=== PATIENT | male | born 1945 | race Caucasian/White ===

== ENCOUNTER 2016-07-19 06:22 | Emergency (ER) | payer BC, OTHER ==
[~2016-07-19] VITALS: Ht 170.2 cm; Wt 100.7 kg
[~2016-07-19 06:22] MED LIST: MULT-506 PO; OFLO0.3S OPR; PRED1SUS3 OPL
[2016-07-19 06:25] VITALS: TEMP 36.6; Ht 170.2 cm; Wt 100.7 kg
[2016-07-19] MEDS ORDERED: OPTIRAY 320 IV PRN (06:45)
--- NOTE | 2016-07-19 06:45 | EMERGENCY ROOM VISIT NOTE ---
History Report prepared by Yoletteibedilma: Gustavo Santamaria Under the Supervision of: Dr. Genaro Lua M.D. First contact with patient: 06:30 Chief Complaint: ABDOMINAL PAIN Stated Complaint: PAIN ON RIGHT SIDE OF ABDOMEN History of Present Illness The patient is a 70 year old male who presents to the Emergency Room with complaints of constant right-sided abdominal pain for the past two weeks. The pain is located in the rib area and radiates towards the back. The pain is described as a throbbing sensation, and is relieved for a few hours with Ibuprofen. Pain is not worsened when he takes a deep breath or with movement. Pain does not radiate to the shoulders. The patient has never had pain like this before. He has had trouble sleeping secondary to pain. He has been eating and drinking okay. Patient denies syncope, fevers, chills, nausea, vomiting, chest pain, shortness of breath, urinary symptoms, swelling of the legs, or rashes. He denies recent falls injuries or trauma. The pain does not feel like past kidney stones. He denies any history of liver or gallbladder disease. He has no sick contacts. Patient does not take any daily medications other than multivitamins. Source of History: patient Onset: two weeks ago Position: abdomen (right-sided) Quality: other (throbbing) Timing: constant Modifying Factors (Relieving): ibuprofen Associated Symptoms: No SOB, No chest pain, No chills, No fevers, No nausea , No rash, No vomiting Review of Systems See HPI for pertinent positives & negatives. A total of 10 systems reviewed and were otherwise negative. Past Medical & Surgical Medical Problems: (1) H/O renal calculi Family History No pertinent family history Social History Smoking Status: Former Smoker Marital Status: Housing Status: lives with family Current/Historical Medications No Active Prescriptions or Reported Meds Allergies Coded Allergies: No Known Allergies (Unverified , 07/19/16) Physical Exam Vital Signs Date Time Temp Pulse Resp B/P Pulse Ox O2 Delivery O2 Flow Rate FiO2 07/19/16 10:30 80 18 197/98 100 07/19/16 06:42 100 18 234/108 98 Room Air 07/19/16 06:25 36.6 101 18 234/96 97 Room Air Physical Exam GENERAL: Patient is uncomfortable appearing and in mild distress. HEENT: No acute trauma, normocephalic atraumatic, mucous membranes moist, no nasal congestion, no scleral icterus. NECK: No stridor, no adenopathy, no meningismus, trachea is midline. LUNGS: No dyspnea. Clear to auscultation and equal bilaterally. No wheeze, no rhonchi. HEART: Regular rate and rhythm. No murmurs, rubs, gallops appreciated. ABDOMEN: Soft, nontender, bowel sounds positive, no masses appreciated, no peritonitis. BACK: No midline tenderness, no CVA tenderness EXTREMITIES: Normal motion all extremities, no cyanosis, no edema. NEUROLOGIC: Alert and oriented, no acute motor or sensory deficits, no focal weakness, cranial nerves grossly intact. SKIN: No rash, no jaundice, no diaphoresis. Medical Decision & Procedures ER Provider Diagnostic Interpretation: Radiology results and stated below per my review and radiologist interpretation: CT OF THE ABDOMEN AND PELVIS WITH CONTRAST CLINICAL HISTORY: Right-sided abdominal pain. COMPARISON STUDY: None. TECHNIQUE: Following IV administration of 94 mL of Optiray-320, axial images of the abdomen and pelvis were obtained from the lung bases to the proximal femurs. Images were reviewed in the axial, sagittal, and coronal planes. IV contrast was administered without complication. CT DOSE: 1085.52 mGy.cm FINDINGS: Visualized portions of the lower chest demonstrate several tree-in-bud nodules within the right lower lobe. The liver, spleen, adrenal glands and pancreas are normal. Note is made of a 6.8 cm x 5.7 cm mass-like abnormality centered within the cortex of the midpole of the right kidney. This is centrally hypodense with an irregular enhancing wall. There is moderate adjacent infiltration. There is urothelial thickening of the right collecting system. There is trace perihepatic ascites. Note is made of a mildly enlarged lymph node adjacent to the right renal vein that measures 1.8 cm. This is centrally hypodense. There is no hydronephrosis. There is a 3.7 cm left renal cyst. There is no evidence for a bowel obstruction. There is sigmoid diverticulosis without evidence for acute diverticulitis. No suspicious osseous lesions are present. IMPRESSION: 1. 6.8 x 5.7 cm mass-like abnormality within the cortex of the midpole of the right kidney which is centrally hypodense with an irregular enhancing wall with moderate associated infiltration. Associated urothelial thickening. Mildly enlarged lymph node adjacent to the right renal vein which may be necrotic. The appearance favors an infectious process with abscess formation. Although statistically unlikely, renal tuberculosis is within the differential. A neoplastic process such as transitional cell carcinoma or atypical appearance of renal cell carcinoma could appear similar. Findings discussed with Dr. Lua at time of dictation. 2. Trace right pleural effusion and trace perihepatic ascites related to the right renal process. 3. Minimal tree-in-bud nodules within the right lower lobe. Electronically signed by: Ranjit Espinosa M.D. 07/19/2016 7:55 AM Dictated Date/Time: 07/19/2016 7:32 AM Laboratory Results 07/19/16 07:00 Red Blood Count 4.59, Mean Corpuscular Volume 81.7, Mean Corpuscular Hemoglobin 25.3, Mean Corpuscular Hemoglobin Concent 30.9, Mean Platelet Volume 9.2, Neutrophils (%) (Auto) 77.3, Lymphocytes (%) (Auto) 13.2, Monocytes (%) (Auto) 8.2, Eosinophils (%) (Auto) 1.0, Basophils (%) (Auto) 0.1, Neutrophils # (Auto) 7.23, Lymphocytes # (Auto) 1.24, Monocytes # (Auto) 0.77, Eosinophils # (Auto) 0.09, Basophils # (Auto) 0.01 07/19/16 07:00 Test 07/19/16 07:00 07/19/16 07:05 White Blood Count 9.36 K/uL (4.8-10.8) Red Blood Count 4.59 M/uL (4.7-6.1) Hemoglobin 11.6 g/dL (14.0-18.0) Hematocrit 37.5 % (42-52) Mean Corpuscular Volume 81.7 fL (80-100) Mean Corpuscular Hemoglobin 25.3 pg (25-34) Mean Corpuscular Hemoglobin Concent 30.9 g/dl (32-36) Platelet Count 380 K/uL (130-400) Mean Platelet Volume 9.2 fL (7.4-10.4) Neutrophils (%) (Auto) 77.3 % Lymphocytes (%) (Auto) 13.2 % Monocytes (%) (Auto) 8.2 % Eosinophils (%) (Auto) 1.0 % Basophils (%) (Auto) 0.1 % Neutrophils # (Auto) 7.23 K/uL (1.4-6.5) Lymphocytes # (Auto) 1.24 K/uL (1.2-3.4) Monocytes # (Auto) 0.77 K/uL (0.11-0.59) Eosinophils # (Auto) 0.09 K/uL (0-0.5) Basophils # (Auto) 0.01 K/uL (0-0.2) RDW Standard Deviation 42.4 fL (36.4-46.3) RDW Coefficient of Variation 14.1 % (11.5-14.5) Immature Granulocyte % (Auto) 0.2 % Immature Granulocyte # (Auto) 0.02 K/uL (0.00-0.02) Urine Color YELLOW Urine Appearance CLOUDY (CLEAR) Urine pH 6.0 (4.5-7.5) Urine Specific [facility] 1.020 (1.000-1.030) Urine Protein 2+ (NEG) Urine Glucose (UA) NEG (NEG) Urine Ketones NEG (NEG) Urine Occult Blood 3+ (NEG) Urine Nitrite NEG (NEG) Urine Bilirubin NEG (NEG) Urine Urobilinogen NEG (NEG) Urine Leukocyte Esterase SMALL (NEG) Urine WBC (Auto) >30 /hpf (0-5) Urine RBC (Auto) >30 /hpf (0-4) Urine Hyaline Casts (Auto) 5-10 /lpf (0-5) Urine Epithelial Cells (Auto) 10-20 /lpf (0-5) Urine Bacteria (Auto) NEG (NEG) Est Creatinine Clear Calc Drug Dose 81.6 ml/min Estimated GFR () 91.4 Estimated GFR (Non- 78.9 BUN/Creatinine Ratio 22.0 (10-20) Calcium Level 8.4 mg/dl (8.5-10.1) Total Bilirubin 0.4 mg/dl (0.2-1) Direct Bilirubin < 0.1 mg/dl (0-0.2) Aspartate Amino Transf (AST/SGOT) 12 U/L (15-37) Alanine Aminotransferase (ALT/SGPT) 25 U/L (12-78) Alkaline Phosphatase 43 U/L (45-117) Total Protein 7.4 gm/dl (6.4-8.2) Albumin 2.9 gm/dl (3.4-5.0) Lipase 69 U/L (73-393) Bedside Hemoglobin 13.3 g/dl (14.0-18.0) Bedside Hematocrit 39 % (42-52) Bedside Sodium 140 mEq/L (135-144) Bedside Potassium 3.6 mEq/L (3.3-5.0) Bedside Chloride 102 mEq/L (101-112) Bedside Total CO2 24 mEq/l (24-31) Anion Gap 19.0 mmol/L (16-25) Bedside Blood Urea Nitrogen 22 mg/dl (7-18) Bedside Creatinine 1.0 mg/dl (0.6-1.3) Bedside Glucose (other) 114 mg/dl (70-99) Bedside Ionized Calcium (Deanna) 1.05 mmol/l (1.12-1.32) Laboratory results as reviewed by me. Medications Administered Medications (Trade) Dose Ordered Sig/Cb Route Start Time Stop Time Status Last Admin Dose Admin Hydromorphone HCl 1 mg 1 mg NOW STAT IV 07/19/16 08:09 07/19/16 08:10 DC 07/19/16 08:17 1 MG Sodium Chloride (Nss 1000ml) 1,000 ml @ 999 mls/hr Q1H1M STAT IV 07/19/16 08:09 07/19/16 09:09 DC 07/19/16 08:17 999 MLS/HR Labetalol HCl (Normodyne IV) 10 mg NOW STAT IV 07/19/16 08:49 07/19/16 08:50 DC 07/19/16 09:10 10 MG Labetalol HCl (Normodyne IV) 20 mg NOW STAT IV 07/19/16 09:29 07/19/16 09:30 DC 07/19/16 09:49 20 MG Hydromorphone HCl (Dilaudid Inj) 1 mg NOW STAT IV 07/19/16 10:13 07/19/16 10:14 DC 07/19/16 10:25 1 MG ED Course 0631: The patient was evaluated in room A2. A complete history and physical exam was performed. 0700: The patient declines anything to control his blood pressure as he states this happens every time he sees a doctor. 0748: Discussed the CT findings with Dr. Espinosa from Radiology. 0751: Checked on the patient. He is feeling better. We extensively discussed TB risk factors which he declined. Dr. Nunez of Urology was paged. 0801: Discussed the case with Dr. Nunez, Urologist. He recommends transfer. 0808: The patient is having increased pain. He would like to go to [place] as he is a [employer] employee. [facility] paged. 0809: Dilaudid 1 mg IV, NSS 1000 ml @ 999 mls/hr. 0820: Discussed the case with Dr. Temple, [facility], who agrees with the plan. Also spoke with Dr. Cee, [place] [facility], who accepts the transfer. I discussed with them that the patient wishes to be transferred by private vehicle. They advised ambulance if his blood pressure remains elevated. 0840: The patient is still severely hypertensive. He agrees to IV antihypertensives and transfer to [place] via ambulance. 0849: Labetalol 10 mg IV. 0928: Patient's blood pressure was 210 systolic. He will receive another 20 of Labetalol. 0929: Labetalol 20 mg IV. 1013: Dilaudid 1 mg IV, Labetalol 20 mg IV. 1030: The patient has departed. He will be taken to [place] via ambulance. Medical Decision Differential: Renal Colic, Pyelonephritis, Hydronephrosis, Appendicitis, Diverticulitis, Retroperitoneal Bleed/Infection, Aortic Pathology, MSK, Neurologic Pathology, amongst other pathologies entertained. 70 yr old male with right flank pain radiating back for last 2 weeks gradually worsening, worse with laying on right side. Severely hypertensive on arrival though refusing meds stating this is normal and his BP always lowers after a short while. He has no symptoms of hypertensive crisis. Given symptoms felt that CT indicated. There is large right renal mass consistent with abscess vs CA vs much less likely TB. He has no TB risk factors after extensive screening questions. I do not feel he requires isolation given the much more likely other causes and his no risk factors. BP remains elevated. After significant amount of time discussing patient agreeable to treatment of BP. Several rounds of IV labetalol prior to getting BP under control and with this feel comfortable with transfer to tertiary center. Discussed with Uro and ER at [place] who have accepted for transfer. I discussed my wish for patient ot go by ambulance which he eventually agreed to. Kept comfortable with IV dilaudid. Hold ABX given unclear if this truly is infection and would like to avoid messing up any biopsies if this is infectious. Multiple re-evaluations throughout the stay discussing case with patient and family. Consults Time Called: 07 Consulting Physician: Dr. Espinosa from Radiology. Returned Call: [address] findings. Additional Consults: Time Called: 075 Consulted Physician: Discussed the case with Dr. Nunez, Urologist. Returned Call: 08 Additional Comments: He recommends transfer. Time Called: 08 Consulted Physician: [facility] U[facility]ist and Dr. Cee, [facility] Returned Call: 08 Additional Comments: I discussed with them that the patient wishes to be transferred by private vehicle. They advised ambulance if his blood pressure remains elevated. Impression Primary Impression: Right renal mass Additional Impression: Hypertensive emergency Critical Care I have personally spent greater than 40 minutes of critical care time in the direct management of this patient. This was a life/limb threatening event. This includes time spent evaluating patient, direct bedside care, chart review, placing orders, interpretation of diagnostic studies, discussion with consultants, patient, and family members, as well as other required patient management activities. This 40 minutes is in excess of all separately billable procedures. Scribe Attestation The scribe's documentation has been prepared under my direction and personally reviewed by me in its entirety. I confirm that the note above accurately reflects all work, treatment, procedures, and medical decision making performed by me. Departure Information Dispostion Transfer Acute Care Facility Prescriptions No Active Prescriptions or Reported Meds Referrals Declan Chen M.D. ([facility]) (PCP) Patient Instructions My [facility] Problem Qualifiers
[2016-07-19 07:13] LABS: BASO % 0.1 %; BASO ABS # 0.01 K/uL (0-0.2); COMPLETE YES; HEMATOCRIT 37.5 % (42-52); IG% 0.2 %; LYMPH % 13.2 %; LYMPH ABS # 1.24 K/uL (1.2-3.4); MEAN CELL VOLUME 81.7 fL (80-100); MEAN CORPUSCULAR HEMOGLOBIN 25.3 pg (25-34); MEAN CORPUSCULAR HGB CONC 30.9 g/dl (32-36); MEAN PLATELET VOLUME 9.2 fL (7.4-10.4); MONO % 8.2 %; NEUT % 77.3 %; PLATELET COUNT 380 K/uL (130-400); RED BLOOD COUNT 4.59 M/uL (4.7-6.1); WHITE BLOOD COUNT 9.36 K/uL (4.8-10.8)
[2016-07-19 07:17] LABS: URINE APPEARANCE CLOUDY (CLEAR); URINE BILIRUBIN NEG (NEG); URINE COLOR YELLOW; URINE NITRITE NEG (NEG); UROBILINOGEN NEG (NEG); ZZUR CULT IF INDIC CLEAN CATCH YES
[2016-07-19 07:19] LABS: ISTAT HEMOGLOBIN 13.3 g/dl (14.0-18.0); ISTAT IONIZED CALCIUM 1.05 mmol/l (1.12-1.32)
[2016-07-19 07:24] LABS: ALT/SGPT 25 U/L (12-78); AST/SGOT 12 U/L (15-37); BLOOD UREA NITROGEN 22 mg/dl (7-18); CALCIUM 8.4 mg/dl (8.5-10.1); CARBON DIOXIDE 27 mmol/L (21-32); CHLORIDE 106 mmol/L (98-107); CREATININE 0.98 mg/dl (0.60-1.40); GLUCOSE 113 mg/dl (70-99); POTASSIUM 3.7 mmol/L (3.5-5.1); SODIUM 141 mmol/L (136-145)
[2016-07-19 07:26] LABS: MANUAL MICROSCOPIC REQUIRED? NO; REVIEW REQ? NO
[2016-07-19 07:27] LABS: ALKALINE PHOSPHATASE 43 U/L (45-117)
--- NOTE | 2016-07-19 07:56 | DIAGNOSTIC IMAGING REPORT ---
CT OF THE ABDOMEN AND PELVIS WITH CONTRAST CLINICAL HISTORY: Right-sided abdominal pain. COMPARISON STUDY: None. TECHNIQUE: Following IV administration of 94 mL of Optiray-320, axial images of the abdomen and pelvis were obtained from the lung bases to the proximal femurs. Images were reviewed in the axial, sagittal, and coronal planes. IV contrast was administered without complication. CT DOSE: 1085.52 mGy.cm FINDINGS: Visualized portions of the lower chest demonstrate several tree-in-bud nodules within the right lower lobe. The liver, spleen, adrenal glands and pancreas are normal. Note is made of a 6.8 cm x 5.7 cm mass-like abnormality centered within the cortex of the midpole of the right kidney. This is centrally hypodense with an irregular enhancing wall. There is moderate adjacent infiltration. There is urothelial thickening of the right collecting system. There is trace perihepatic ascites. Note is made of a mildly enlarged lymph node adjacent to the right renal vein that measures 1.8 cm. This is centrally hypodense. There is no hydronephrosis. There is a 3.7 cm left renal cyst. There is no evidence for a bowel obstruction. There is sigmoid diverticulosis without evidence for acute diverticulitis. No suspicious osseous lesions are present. IMPRESSION: 1. 6.8 x 5.7 cm mass-like abnormality within the cortex of the midpole of the right kidney which is centrally hypodense with an irregular enhancing wall with moderate associated infiltration. Associated urothelial thickening. Mildly enlarged lymph node adjacent to the right renal vein which may be necrotic. The appearance favors an infectious process with abscess formation. Although statistically unlikely, renal tuberculosis is within the differential. A neoplastic process such as transitional cell carcinoma or atypical appearance of renal cell carcinoma could appear similar. Findings discussed with Dr. Lua at time of dictation. 2. Trace right pleural effusion and trace perihepatic ascites related to the right renal process. 3. Minimal tree-in-bud nodules within the right lower lobe. Electronically signed by: Ranjit Espinosa M.D. 07/19/2016 7:55 AM Dictated Date/Time: 07/19/2016 7:32 AM
[2016-07-19] MEDS ORDERED: HYDROmorphone INJ 1 MG/ML SYR IV STA ×2 (08:09→10:13)
[2016-07-19] MEDS ORDERED: SODIUM CHLORIDE 0.9% 1000ML 1,000 ML IV STA (08:09)
[2016-07-19] MEDS ORDERED: LABETALOL HCL IV 5 MG/ML 20ML IV STA ×3 (08:49→10:13)
[2016-07-19 10:30] VITALS: BP 197/98; PULSE 80; O2SAT 100
[2016-10-12] MEDS ORDERED: CLON1TAB3 PO (08:21)
[2016-10-12] MEDS ORDERED: CIPR1TAB11 PO (08:21)
[2016-10-23] MEDS ORDERED: CTP/1 PO (13:32)
[2016-10-23] MEDS ORDERED: METO50TA16 PO (13:33)
[2016-11-04] MEDS ORDERED: ESZO1TAB16 PO (14:48)
[2016-11-26] MEDS ORDERED: AMOX500C3 PO (07:34)
[2016-11-26] MEDS ORDERED: TEMA15CA4 PO (07:34)
[2016-12-21] MEDS ORDERED: FURO-85 PO (07:03)
[2016-12-21] MEDS ORDERED: MIRT15TA2 PO (07:03)
[2016-12-21] MEDS ORDERED: SENNTAB23 PO (07:03)
[2017-01-07] MEDS ORDERED: POTA10CA28 PO (07:31)
[2017-01-07] MEDS ORDERED: ZOLP5TAB PO (07:31)
[2017-01-27] MEDS ORDERED: DTR5 PO (11:24)
[2017-01-27] MEDS ORDERED: FNTTP50 TD (11:24)
[2017-01-27] MEDS ORDERED: FLM4 PO (11:24)
[2017-01-27] MEDS ORDERED: ACET-24 PO (11:24)
[2017-01-27] MEDS ORDERED: PRED10TA PO (11:24)
[2017-01-27] MEDS ORDERED: MRLP17X PO (11:24)
[2017-01-27] MEDS ORDERED: MRPL PO (11:24)
[2017-01-27] MEDS ORDERED: NYSS5 PO (11:24)
[2017-01-27] MEDS ORDERED: CLC100 PO (11:24)
[2017-01-27] MEDS ORDERED: DRGTP12 TD (11:50)
== END 2016-07-19 10:32 | disposition short-term general hospital (02) ==
LOC: C.EDB 06:23 → C.EDA 10:32
DX: N28.89 Other specified disorders of kidney and ureter (principal); I16.1 Hypertensive emergency; Z87.442 Personal history of urinary calculi; Z87.891 Personal history of nicotine dependence

== ENCOUNTER 2016-09-21 07:16 | Emergency (ER) | payer BC, OTHER ==
[~2016-09-21] VITALS: Ht 172.7 cm; Wt 97.1 kg
[2016-09-21 07:22] VITALS: TEMP 37.3; Ht 172.7 cm; Wt 97.1 kg
[2016-09-21] MEDS ORDERED: MULT-897 PO (07:43)
[2016-09-21] MEDS ORDERED: HYDR4TAB78 PO (07:43)
[2016-09-21] MEDS ORDERED: METO-217 PO (07:43)
[2016-09-21] MEDS ORDERED: ACET-1256 PO (07:43)
[2016-09-21] MEDS ORDERED: PROC5TAB PO (07:43)
[2016-09-21] MEDS ORDERED: NF656 TD (07:43)
[2016-09-21] MEDS ORDERED: DOCU-94 PO (07:43)
[2016-09-21] MEDS ORDERED: LISI-793 PO (07:43)
[2016-09-21] MEDS ORDERED: SODIUM CHLORIDE 0.9% 1000ML 1,000 ML IV STA (08:00)
[2016-09-21] MEDS ORDERED: CEFTRIAXONE SOD INJ 1 GM ADDVIAL IV STA (08:00)
[2016-09-21 08:07] LABS: MEAN CELL VOLUME 80.2 fL (80-100); MEAN CORPUSCULAR HEMOGLOBIN 25.9 pg (25-34); MEAN CORPUSCULAR HGB CONC 32.3 g/dl (32-36); MEAN PLATELET VOLUME 8.6 fL (7.4-10.4); PLATELET COUNT 495 K/uL (130-400); RED BLOOD COUNT 3.24 M/uL (4.7-6.1); WHITE BLOOD COUNT 21.98 K/uL (4.8-10.8)
[2016-09-21 08:20] LABS: INR 1.2 (0.9-1.1); PARTIAL THROMBOPLASTIN RATIO 1.1
[2016-09-21 08:24] LABS: BUN/CREATININE RATIO 26.6 (10-20); CALCIUM 8.3 mg/dl (8.5-10.1); CREATININE 2.1 mg/dl (0.60-1.40); POTASSIUM 5.2 mmol/L (3.5-5.1)
[2016-09-21 08:29] LABS: CKMB/CK RATIO 3.2 (0-3.0)
[2016-09-21 08:41] LABS: COMPLETE YES; IG% 0.4 %; LYMPH % 1.2 %; LYMPH ABS # 0.27 K/uL (1.2-3.4); MONO % 0.5 %; NEUT % 97.9 %
[2016-09-21] MEDS ORDERED: SULF800T23 PO (08:52)
--- NOTE | 2016-09-21 08:54 | DIAGNOSTIC IMAGING REPORT ---
CHEST ONE VIEW PORTABLE CLINICAL HISTORY: 70 years-old Male presenting with Evaluate Fever/Sepsis. TECHNIQUE: Portable upright AP view of the chest was obtained. COMPARISON: None. FINDINGS: Atherosclerosis of the aortic arch. Bilateral prominent cardiac silhouette, possibly due to technique. Elevation of the right hemidiaphragm. Lungs and pleural spaces clear. Degenerative changes of the thoracic spine. Upper abdomen normal. IMPRESSION: 1. No acute cardiopulmonary disease. Electronically signed by: Ayaz Wallace M.D. 09/21/2016 8:53 AM Dictated Date/Time: 09/21/2016 8:52 AM
[2016-09-21 08:56] LABS: URINE APPEARANCE CLOUDY (CLEAR); URINE BILIRUBIN NEG (NEG); URINE COLOR YELLOW; URINE NITRITE NEG (NEG); URINE PH 5.5 (4.5-7.5); URINE SPECIFIC GRAVITY 1.014 (1.000-1.030); UROBILINOGEN NEG (NEG)
[2016-09-21 08:57] LABS: MANUAL MICROSCOPIC REQUIRED? NO; REVIEW REQ? YES
[2016-09-21 09:06] LABS: ZZUR CULT IF INDIC CLEAN CATCH YES
[2016-09-21 09:11] LABS: URINE PATH CASTS 0-3 GRANULAR CASTS /lpf (0)
--- NOTE | 2016-09-21 11:09 | EMERGENCY ROOM VISIT NOTE ---
History Report prepared by Rick: Renee King Under the Supervision of: Dr. Brayan Lopez D.O. First contact with patient: 07:35 Chief Complaint: FEVER Stated Complaint: 100.9 FEVER-STARTED CHEMO TREATMENT FRI 7.17 History of Present Illness The patient is a 70 year old male who presents to the Emergency Room with complaints of a resolved fever that was first noticed this morning. He recorded a fever at 100.9. The patient's states that he was also shaky and unsteady this morning. He states that he experienced shortness of breath with the shakiness and unsteadiness. The shortness of breath is resolved now. He denies any recent cough or rhinorrhea. The patient states that he started chemotherapy 3 days ago for urothelial cancer. The patient called his oncologist and left a message. His states that the patient's oncologist told them to come into the ED for further evaluation whenever he experiences a fever. The patient took Dilaudid and his blood pressure medication this morning but did not take anything for the fever. The patient states that he has been eating and drinking normally. The patient has a nephrostomy tube in place on his right side. The patient's states that it has been draining and he had about 20 ccs of fluid in it this morning. She states that the fluid was a little bloody this morning. The patient is currently on Bactrim for a possible infection around the patient's nephrostomy tube site. Source of History: patient Onset: this morning Position: other (global) Quality: other (fever) Timing: resolved Associated Symptoms: + SOB, No cough Note: shakiness, unsteadiness, no recent rhinorrhea Review of Systems See HPI for pertinent positives & negatives. A total of 10 systems reviewed and were otherwise negative. Past Medical & Surgical Medical Problems: (1) H/O renal calculi Family History Kidney disease Social History Smoking Status: Never Smoker Marital Status: Housing Status: lives with family Current/Historical Medications Scheduled Docusate Sodium (Colace), 100 MG PO DAILY Lidocaine (Lidoderm Patch 5%), 1 PATCH TD Q12 Lisinopril (Zestril), 30 MG PO DAILY Metoprolol Succinate (Toprol Xl), 50 MG PO DAILY Multiple Vitamin (One Daily), 1 TAB PO DAILY Prochlorperazine Maleate (Compazine), 10 MG PO Q8 Sulfa/Trimethoprim (Bactrim Ds 800MG/160MG), 1 TAB PO BID Scheduled PRN Acetaminophen (Tylenol), 500 MG PO Q6 PRN for Pain or Fever Hydromorphone Hcl (Dilaudid), 4 MG PO Q6 PRN for Pain Allergies Coded Allergies: No Known Allergies (Unverified , 09/21/16) Physical Exam Vital Signs Date Time Temp Pulse Resp B/P (MAP) Pulse Ox O2 Delivery O2 Flow Rate FiO2 09/21/16 11:30 90 174/77 99 Room Air 09/21/16 10:25 85 09/21/16 09:54 85 18 158/77 94 Room Air 09/21/16 07:55 99 09/21/16 07:22 37.3 117 18 178/73 97 Room Air Physical Exam CONSTITUTIONAL/VITAL SIGNS: Reviewed / noted above. GENERAL: Non-toxic in appearance. INTEGUMENTARY: Warm, dry, and [place]. HEAD: Normocephalic. EYES: without scleral icterus or trauma. ENT/OROPHARYNX: clear and moist. LYMPHADENOPATHY/NECK: Is supple without lymphadenopathy or meningismus. RESPIRATORY: Lungs clear and equal. CARDIOVASCULAR: Regular rate and rhythm. GI/ABDOMEN: Soft and nontender. Right nephrostomy tube with small amount of sediment in the tube, no output in the bag. No organomegaly or pulsatile mass. No rebound or guarding. Normal bowel sounds. EXTREMITIES: Warm and well perfused. BACK: No CVA tenderness. NEUROLOGICAL: Intact without focal deficits. PSYCHIATRIC: normal affect. MUSCULOSKELETAL: Normally developed with good muscle tone. Medical Decision & Procedures ER Provider Diagnostic Interpretation: Radiology results as stated below per my review and radiologist interpretation: CHEST ONE VIEW PORTABLE FINDINGS: Atherosclerosis of the aortic arch. Bilateral prominent cardiac silhouette, possibly due to technique. Elevation of the right hemidiaphragm. Lungs and pleural spaces clear. Degenerative changes of the thoracic spine. Upper abdomen normal. IMPRESSION: 1. No acute cardiopulmonary disease. Electronically signed by: Ayaz Wallace M.D. 09/21/2016 8:53 AM Dictated Date/Time: 09/21/2016 8:52 AM Laboratory Results 09/21/16 07:48 Red Blood Count 3.24, Mean Corpuscular Volume 80.2, Mean Corpuscular Hemoglobin 25.9, Mean Corpuscular Hemoglobin Concent 32.3, Mean Platelet Volume 8.6, Neutrophils (%) (Auto) 97.9, Lymphocytes (%) (Auto) 1.2, Monocytes (%) (Auto) 0.5, Eosinophils (%) (Auto) 0.0, Basophils (%) (Auto) 0.0, Neutrophils # (Auto) 21.50, Lymphocytes # (Auto) 0.27, Monocytes # (Auto) 0.11, Eosinophils # (Auto) 0.01, Basophils # (Auto) 0.00 09/21/16 07:48 Test 09/21/16 07:48 09/21/16 08:13 White Blood Count 21.98 K/uL (4.8-10.8) Red Blood Count 3.24 M/uL (4.7-6.1) Hemoglobin 8.4 g/dL (14.0-18.0) Hematocrit 26.0 % (42-52) Mean Corpuscular Volume 80.2 fL (80-100) Mean Corpuscular Hemoglobin 25.9 pg (25-34) Mean Corpuscular Hemoglobin Concent 32.3 g/dl (32-36) Platelet Count 495 K/uL (130-400) Mean Platelet Volume 8.6 fL (7.4-10.4) Neutrophils (%) (Auto) 97.9 % Lymphocytes (%) (Auto) 1.2 % Monocytes (%) (Auto) 0.5 % Eosinophils (%) (Auto) 0.0 % Basophils (%) (Auto) 0.0 % Neutrophils # (Auto) 21.50 K/uL (1.4-6.5) Lymphocytes # (Auto) 0.27 K/uL (1.2-3.4) Monocytes # (Auto) 0.11 K/uL (0.11-0.59) Eosinophils # (Auto) 0.01 K/uL (0-0.5) Basophils # (Auto) 0.00 K/uL (0-0.2) RDW Standard Deviation 48.6 fL (36.4-46.3) RDW Coefficient of Variation 16.6 % (11.5-14.5) Immature Granulocyte % (Auto) 0.4 % Immature Granulocyte # (Auto) 0.09 K/uL (0.00-0.02) Red Blood Cell Morphology Unremarkable Prothrombin Time 13.0 SECONDS (9.0-12.0) Prothromb Time International Ratio 1.2 (0.9-1.1) Activated Partial Thromboplast Time 28.7 SECONDS (21.0-31.0) Partial Thromboplastin Ratio 1.1 Anion Gap 9.0 mmol/L (3-11) Est Creatinine Clear Calc Drug Dose 38.0 ml/min Estimated GFR () 36.4 Estimated GFR (Non- 31.4 BUN/Creatinine Ratio 26.6 (10-20) Calcium Level 8.3 mg/dl (8.5-10.1) Total Bilirubin 0.5 mg/dl (0.2-1) Direct Bilirubin 0.3 mg/dl (0-0.2) Aspartate Amino Transf (AST/SGOT) 69 U/L (15-37) Alanine Aminotransferase (ALT/SGPT) 82 U/L (12-78) Alkaline Phosphatase 117 U/L (45-117) Total Creatine Kinase 38 U/L (39-308) Creatine Kinase MB 1.2 ng/ml (0.5-3.6) Creatine Kinase MB Ratio 3.2 (0-3.0) Total Protein 6.6 gm/dl (6.4-8.2) Albumin 2.1 gm/dl (3.4-5.0) Urine Color YELLOW Urine Appearance CLOUDY (CLEAR) Urine pH 5.5 (4.5-7.5) Urine Specific [place] 1.014 (1.000-1.030) Urine Protein 2+ (NEG) Urine Glucose (UA) NEG (NEG) Urine Ketones NEG (NEG) Urine Occult Blood 2+ (NEG) Urine Nitrite NEG (NEG) Urine Bilirubin NEG (NEG) Urine Urobilinogen NEG (NEG) Urine Leukocyte Esterase MODERATE (NEG) Urine WBC (Auto) >30 /hpf (0-5) Urine RBC (Auto) 5-10 /hpf (0-4) Urine Hyaline Casts (Auto) 1-5 /lpf (0-5) Urine Epithelial Cells (Auto) 10-20 /lpf (0-5) Urine Bacteria (Auto) NEG (NEG) Urine Pathogenic Casts 0-3 GRANULAR CASTS /lpf (0) Urine Yeast (Auto) (NONE PRSENT) Laboratory results as stated above per my review. Medications Administered Medications (Trade) Dose Ordered Sig/Cb Route Start Time Stop Time Status Last Admin Dose Admin Sodium Chloride 1,000 ml @ 999 mls/hr Q1H1M STAT IV 09/21/16 08:00 09/21/16 09:00 DC 09/21/16 08:10 999 MLS/HR Ceftriaxone Sodium (Rocephin Inj) 1 gm NOW STAT IV 09/21/16 08:00 09/21/16 08:01 DC 09/21/16 08:10 1 GM Morphine Sulfate (MoRPHine SULFATE INJ) 4 mg NOW STAT IV 09/21/16 11:32 09/21/16 11:33 DC 09/21/16 11:40 4 MG ECG Indication: SOB/dyspnea Rate (beats per minute): 102 Rhythm: sinus tachycardia Findings: other (anterior ST changes with uncertain significance) Comparison ECG Date: no prior available ED Course 0755: Previous medical records were reviewed. The patient was evaluated in room B6. A complete history and physical examination was performed. 0800: Ordered Rocephin 1 gm IV, Sodium Chloride 1000 ml @ 999 mls/hr IV 1018: Discussed the patient's case with a medical social worker working with Dr. Somers - Medical Oncology. He accepts the patient as a transfer. The patient will go to [facility] by ambulance for further evaluation and treatment. 1024: On reevaluation, the patient is resting comfortably. I discussed the results and findings with the patient and his . They verbalized agreement of the treatment plan. The patient will be transferred for further management and care. Medical Decision Differential includes viral illness, influenza, streptococcal pharyngitis, meningitis, pneumonia, sinusitis, UTI, pyelonephritis, and otitis media. This is a 70-year-old male who presents to the ED with a chief complaint of intermittent fever since Wednesday, since receiving chemotherapy. His temperature yesterday was 100.9. He is afebrile today. His blood pressure is elevated. The patient states that he is being treated for cancer in the lower aspect of his right kidney. He was shaking and unsteadiness morning. His temperature this morning was 100.9. His exam is relatively unremarkable. He has no specific complaints at the moment. He does have a nephrostomy tube coming from the right flank/abdominal region. There is no current drainage but there is some sediment in the tube. The patient's white blood cell count was 21.98. Hemoglobin is 8.4. Last hemoglobin on record here was July 19 with a hemoglobin of 11.6. His creatinine at that time was 0.98. Today it is 2.1. BUN 56. Urine might be infected. The patient is currently on Bactrim. A chest x-ray did not show acute disease. Blood cultures have been taken as is a urine culture pending. I spoke with the medicine oncology service at [place]. They recommended transferring the patient for further evaluation down there since he is receiving all of his treatment and his urological surgery was down there as well. The patient will be transferred there by ambulance. He did receive IV fluids and IV Rocephin here. Medication Reconcilliation Current Medication List: was personally reviewed by me Blood Pressure Screening Patient's blood pressure: Elevated blood pressure Blood pressure disposition: Referred to PCP Consults Time Called: 1006 Consulting Physician: Dr. Somers - Medical Oncology Returned Call: [phone] Discussed the patient's case with a medical social worker working with Dr. Somers - Medical Oncology. He accepts the patient as a transfer. The patient will go to [facility] by ambulance for further evaluation and treatment. Impression Primary Impression: Leukocytosis Additional Impressions: UTI (urinary tract infection) ARF (acute renal failure) Anemia Scribe Attestation The scribe's documentation has been prepared under my direction and personally reviewed by me in its entirety. I confirm that the note above accurately reflects all work, treatment, procedures, and medical decision making performed by me. Departure Information Dispostion Transfer Acute Care Facility Referrals Declan Chen M.D.([facility]) (PCP) Patient Instructions My [facility] Problem Qualifiers Primary Impression: Leukocytosis Additional Impressions:
[2016-09-21 11:30] VITALS: BP 174/77; PULSE 90; O2SAT 99
[2016-09-21] MEDS ORDERED: MoRPHine SULFATE 4 MG/ML 1 ML CARP\\VIAL IV STA (11:32)
[2016-09-21] MEDS ORDERED: MoRPHine SULFATE 4 MG/ML 1 ML CARP\\VIAL ONE (11:33)
[2016-10-12] MEDS ORDERED: CLON1TAB3 PO (08:21)
[2016-10-12] MEDS ORDERED: CIPR1TAB11 PO (08:21)
[2016-10-23] MEDS ORDERED: CTP/1 PO (13:32)
[2016-10-23] MEDS ORDERED: METO50TA16 PO (13:33)
[2016-11-04] MEDS ORDERED: ESZO1TAB16 PO (14:48)
[2016-11-26] MEDS ORDERED: AMOX500C3 PO (07:34)
[2016-11-26] MEDS ORDERED: TEMA15CA4 PO (07:34)
== END 2016-09-21 12:16 | disposition short-term general hospital (02) ==
LOC: C.EDB 07:18
DX: D72.829 Elevated white blood cell count, unspecified (principal); N39.0 Urinary tract infection, site not specified; N17.9 Acute kidney failure, unspecified; D64.9 Anemia, unspecified; R50.9 Fever, unspecified; C68.0 Malignant neoplasm of urethra; Z93.6 Other artificial openings of urinary tract status; Z79.899 Other long term (current) drug therapy

== ENCOUNTER → 2016-09-30 | Outpatient (CLI) | payer BC, OTHER ==
[~2016-09-30] MED LIST changes: +ACET-1256 PO; +AMOX500C3 PO; +CIPR1TAB11 PO; +CLON1TAB3 PO; +CTP/1 PO; +DOCU-94 PO; +ESZO1TAB16 PO; +HYDR4TAB78 PO; +LISI-793 PO; +METO-217 PO; +METO50TA16 PO; -MULT-506 PO; +MULT-897 PO; +NF656 TD; -OFLO0.3S OPR; -PRED1SUS3 OPL; +PROC5TAB PO; +SULF800T23 PO; +TEMA15CA4 PO
[2016-09-30 10:26] LABS: BASO % 0.2 %; BASO ABS # 0.01 K/uL (0-0.2); EOS % 0.5 %; IG% 0.7 %; LYMPH % 9.3 %; LYMPH ABS # 0.57 K/uL (1.2-3.4); MEAN CELL VOLUME 83.6 fL (80-100); MEAN CORPUSCULAR HGB CONC 31.1 g/dl (32-36); MONO % 11.6 %; NEUT % 77.7 %; PLATELET COUNT 162 K/uL (130-400); RED BLOOD COUNT 3.23 M/uL (4.7-6.1); WHITE BLOOD COUNT 6.13 K/uL (4.8-10.8)
[2016-09-30 10:35] LABS: INR 1.3 (0.9-1.1); PARTIAL THROMBOPLASTIN RATIO 1.2; PROTHROMBIN TIME (PATIENT) 14.3 SECONDS (9.0-12.0)
[2016-09-30 10:36] LABS: ALT/SGPT 68 U/L (12-78); AST/SGOT 39 U/L (15-37); BLOOD UREA NITROGEN 37 mg/dl (7-18); BUN/CREATININE RATIO 28.5 (10-20); CARBON DIOXIDE 26 mmol/L (21-32); CHLORIDE 104 mmol/L (98-107); GLUCOSE 119 mg/dl (70-99); SODIUM 137 mmol/L (136-145)
[2016-09-30 10:38] LABS: ALB/GLOB RATIO 0.5 (0.9-2); ALKALINE PHOSPHATASE 134 U/L (45-117)
[2016-09-30 11:03] LABS: ANISOCYTOSIS PRESENT; COMPLETE YES; SPHEROCYTE 1+
== END | disposition home or self-care (01) ==
LOC: C.LABSPEC 09:37
PROVIDERS: ATTEND Physician Assistant
DX: C67.9 Malignant neoplasm of bladder, unspecified (principal)

== ENCOUNTER → 2016-10-07 | Outpatient (CLI) | payer BC, OTHER ==
[2016-10-07 09:34] LABS: HEMATOCRIT 26.4 % (42-52); MEAN CORPUSCULAR HEMOGLOBIN 24.8 pg (25-34); MEAN CORPUSCULAR HGB CONC 29.9 g/dl (32-36); MEAN PLATELET VOLUME 9.4 fL (7.4-10.4); PLATELET COUNT 642 K/uL (130-400); RED BLOOD COUNT 3.18 M/uL (4.7-6.1); WHITE BLOOD COUNT 15.33 K/uL (4.8-10.8)
[2016-10-07 09:42] LABS: ALT/SGPT 52 U/L (12-78); BLOOD UREA NITROGEN 22 mg/dl (7-18); BUN/CREATININE RATIO 17.9 (10-20); CARBON DIOXIDE 25 mmol/L (21-32); CHLORIDE 102 mmol/L (98-107); GLUCOSE 137 mg/dl (70-99); POTASSIUM 3.8 mmol/L (3.5-5.1); SODIUM 133 mmol/L (136-145)
[2016-10-07 09:47] LABS: ALB/GLOB RATIO 0.5 (0.9-2); ALKALINE PHOSPHATASE 81 U/L (45-117); AST/SGOT 32 U/L (15-37)
[2016-10-07 09:57] LABS: INR 1.2 (0.9-1.1); PROTHROMBIN TIME (PATIENT) 13.2 SECONDS (9.0-12.0)
[2016-10-07 10:16] LABS: BASO % 0.1 %; BASO ABS # 0.01 K/uL (0-0.2); COMPLETE YES; EOS % 0.3 %; HYPOCHROMIA PRESENT; IG% 2.7 %; LYMPH % 14.9 %; LYMPH ABS # 2.29 K/uL (1.2-3.4); MONO % 3.1 %; NEUT % 78.9 %; POIKILOCYTOSIS PRESENT
== END | disposition home or self-care (01) ==
LOC: C.LABSPEC 09:09
PROVIDERS: ATTEND Physician Assistant
DX: C68.9 Malignant neoplasm of urinary organ, unspecified (principal)

== ENCOUNTER 2016-11-05 08:31 | Day surgery (SDC) | payer BC, OTHER ==
[2016-11-04 14:52] VITALS: BMI 31.0
[~2016-11-05] VITALS: Ht 170.2 cm; Wt 90.9 kg
[~2016-11-05 08:31] MED LIST changes: -ACET-1256 PO; -AMOX500C3 PO; +ATROPINE SULFATE 0.1 MG/ML 5ML SYR IV PRN; -CLON1TAB3 PO; +EpHEDrine SULFATE INJ 50 MG/ML AMP IV PRN; +FENTANYL CITRATE INJ 50 MCG/1 ML 2 ML VIAL IV PRN; +HYDROmorphone INJ 1 MG/ML SYR IV PRN; +LACTATED RINGER'S 1000ML 1,000 ML IV SCH; -METO-217 PO; -NF656 TD; +ONDANSETRON INJ 2 MG/ML 2 ML VIAL IV PRN; -SULF800T23 PO; -TEMA15CA4 PO
[2016-11-05 09:12] LABS: HEMATOCRIT 31.5 % (42-52); MEAN CELL VOLUME 86.1 fL (80-100); MEAN CORPUSCULAR HEMOGLOBIN 25.7 pg (25-34); MEAN PLATELET VOLUME 8.8 fL (7.4-10.4); PLATELET COUNT 431 K/uL (130-400); RED BLOOD COUNT 3.66 M/uL (4.7-6.1); WHITE BLOOD COUNT 8.79 K/uL (4.8-10.8)
[2016-11-05 09:13] VITALS: BP 184/92; PULSE 75; TEMP 36.9; O2SAT 96; Ht 170.2 cm; Wt 90.9 kg
[2016-11-05 09:35] LABS: MEAN CORPUSCULAR HGB CONC 29.8 g/dl (32-36)
[2016-11-05 09:52] LABS: BASO % 0.2 %; BASO ABS # 0.02 K/uL (0-0.2); COMPLETE YES; EOS % 0.1 %; IG% 1.9 %; LYMPH % 14.6 %; LYMPH ABS # 1.28 K/uL (1.2-3.4); MONO % 14.3 %; NEUT % 68.9 %; TEAR DROP CELLS 1+
--- NOTE | 2016-11-05 10:01 | History & Physical Bridge Note ---
H&P Re-Evaluation Bridge Note: I have examined the patient, reviewed the History & Physical and in the interval since the performance of the History & Physical I have noted the following changes of clinical significance: No changes noted SO at bedside all questions answered heart nsr lungs clear to auscultation pt is right handed
[2016-11-05] MEDS ORDERED: FENTANYL CITRATE INJ 50 MCG/1 ML 2 ML VIAL ONE (10:05)
[2016-11-05] MEDS ORDERED: MIDAZOLAM HCL 1 MG/ML 2ML VIAL ONE (10:05)
[2016-11-05] MEDS ORDERED: LIDOCAINE HCL 1% 20 ML VIAL ONE (10:10)
[2016-11-05] MEDS ORDERED: BACITRACIN 50000 UNIT VIAL ONE (10:10)
[2016-11-05] MEDS ORDERED: CEFAZOLIN SOD 1 GM VIAL ONE (10:37)
[2016-11-05] MEDS ORDERED: PROPOFOL IV EMULSION 10 MG/ML 20 ML VIAL IV ONE ×2 (10:38→10:48)
[2016-11-05] MEDS ORDERED: SODIUM CHLORIDE 0.9% 1000ML 1,000 ML IV SCH (11:25)
--- NOTE | 2016-11-05 11:28 | Discharge Instructions ---
Discharge Instructions Date of Service Nov 05, 2016. Admission Reason for Admission: Poor Venous Access, Urothelial Carcinoma Discharge Discharge Diagnosis / Problem: Poor Venous Access, Urothelial Carcinoma Discharge Goals Goal(s): Decrease discomfort, Improve function Activity Recommendations Activity Limitations: as noted below Lifting Limitations: no more than 10 pounds Exercise/Sports Limitations: gradually increase as tolerated May Resume Sexual Activity: when tolerated Shower/Bathe: tomorrow Driving or Machine Use: resume 3 days after discharge . Instructions / Follow-Up Instructions / Follow-Up You may shower tomorrow AM. Please follow-up as needed. Please call the office at [phone] with any questions or concerns. Current Hospital Diet Patient's current hospital diet: Discharge Diet Recommended Diet: Regular Diet Pending Studies Studies pending at discharge: no Medical Emergencies . Who to Call and When: Medical Emergencies: If at any time you feel your situation is an emergency, please call 911 immediately. . Non-Emergent Contact Non-Emergency issues call your: Primary Care Provider, Surgeon Call Non-Emergent contact if: temperature is above 101.5, your pain is not controlled, wound has increased drainage, wound has increased redness . "Provider Documentation" section prepared by Rosemary Fierro. . VTE Core Measure Inpt VTE Proph given/why not?: SCD's
[2016-11-05] MEDS ORDERED: OXYCODONE/ACETAMINOPHEN 5-325 TAB PO PRN ×2 (11:30)
[2016-11-05] MEDS ORDERED: ONDANSETRON INJ 2 MG/ML 2 ML VIAL IV PRN (11:30)
--- NOTE | 2016-11-05 11:31 | [facility] Operative Report ---
Operative Report Operative Date Nov 05, 2016. Pre-Operative Diagnosis chemotherapy treatment Post-Operative Diagnosis chemotherapy treatment Procedure(s) Performed Insertion of A-Port Left Cephalic Vein Surgeon Dr. Eh Garduno Manager [employer] Surgeon(s) None Estimated Blood Loss 10ml Findings as preop Specimens none Indications need chemo venous access Description of Procedure or summary dictated confirmation number [id number] I attest to the content of the Intraoperative Record and any orders documented therein. Any exceptions are noted below.
--- NOTE | 2016-11-05 11:55 | Anesthesiology Progress Note ---
Anesthesia Post Op Note Date & Time Nov 05, 2016 at 11:55 Vital Signs Pain Intensity: 0 Vital Signs Past 12 Hours Date Time Temp Pulse Resp B/P (MAP) Pulse Ox O2 Delivery O2 Flow Rate FiO2 11/05/16 11:50 37.0 75 21 178/87 100 Room Air 11/05/16 11:40 74 15 174/91 98 Room Air 11/05/16 11:30 71 21 156/82 100 Nasal Cannula 2 11/05/16 11:22 36 78 16 162/81 99 Nasal Cannula 2 11/05/16 09:13 36.9 75 18 184/92 (122) 96 Room Air Notes Mental Status: alert / awake / arousable, participated in evaluation Pt Amnestic to Procedure: Yes Nausea / Vomiting: adequately controlled Pain: adequately controlled Airway Patency, RR, SpO2: stable & adequate BP & HR: stable & adequate Hydration State: stable & adequate Anesthetic Complications: no major complications apparent
[2016-11-05 12:05] VITALS: BP 170/83; PULSE 74; TEMP 37; O2SAT 96
[2016-11-05 12:30] VITALS: BP 165/83; PULSE 57; TEMP 37; O2SAT 97
--- NOTE | 2016-11-05 12:30 | DIAGNOSTIC IMAGING REPORT ---
CHEST ONE VIEW PORTABLE HISTORY: s/p port placement COMPARISON: Chest 09/21/2016. FINDINGS: Interval placement of a left subclavian Port-A-Cath with the tip terminating at the expected location of the superior cavoatrial junction/right atrium. No pneumothorax. No pleural effusions. Stable mild interstitial thickening. The heart is stable in size. IMPRESSION: Interval placement of a left subclavian Port-A-Cath with the tip terminating at the expected location of the superior cavoatrial junction/right atrium. No pneumothorax. Electronically signed by: Rich Hill M.D. 11/05/2016 12:28 PM Dictated Date/Time: 11/05/2016 12:27 PM
--- NOTE | 2016-11-06 01:21 | OPERATIVE REPORT ---
DATE OF OPERATION: 11/05/2016 SURGEON: Dr. Garduno. PREOPERATIVE DIAGNOSIS: Ureteral carcinoma, need for chemotherapy. POSTOPERATIVE DIAGNOSIS: Same. PROCEDURE: MRI compatible port through the left cephalic vein. SUMMARY: The patient was brought into the operating room, under supine position, roll was placed underneath the shoulders. The left neck and left upper chest was prepped with Betadine scrubbing solution and properly draped. The patient was placed in Trendelenburg position. We used local anesthetic with some IV sedation. We infiltrated the angle of the clavicle sufficient enough that we passed an access needle without any difficulty into the vein. We had excellent back bleeding. At this point, we then placed the guidewire and it seemed like to be sticking underneath the clavicle. Therefore, we withdrew the needle and then imaged the area and it was curling up underneath the clavicle. We attempted this a similar time and had the same problem. At this point, I thought there was something anatomically aberrant in the area. I tried to access to the internal jugular between the 2 heads of the sternocleidomastoid and it was unsuccessful. At this point, I elected to make an incision to find the cephalic vein and used more local anesthetic, made an incision about an inch and three-quarters long, deepened through subcutaneous tissue into the deltopectoral groove, identified the cephalic vein which was larger than normal. Proximally we controlled it with 2-0 silk and distally with a Brayden tie. At this point, with the patient in Trendelenburg position, a small opening was made into the vein. A venous pick was then brought in and we directly placed the catheter by beveling the tip a little bit into the vein and fluoroscopic reimaged and went into the right ventricle beyond without any problem. We were probably at the skin edge about 30 cm. We at this point loosely tied the Brayden tie proximally and distally we ligated and tied with silk suture. We then brought the reservoir up on the field after we made a pocket sufficient enough that would accommodate it. With a black bolster, we placed a catheter into the reservoir and fashioned it with a black bolster. We aspirated it and flushed easily. We reimaged the system and appeared to be adequate length. We then placed the reservoir into the previously made pocket and placed 3 sutures to hold it in place. We then closed the wound in multiple layer 2-0 and 3-0 Dexon and 4-0 Monocryl. Prior to leaving the room, we aspirated and flushed through the skin without any problem, aspirating or flushing and by reimaging, the catheter and the patient in the supine position, appeared to be right at the right atrial area. I attest to the content of the Intraoperative Record and any orders documented therein. Any exceptions are noted below. MTDD
[2016-11-26] MEDS ORDERED: AMOX500C3 PO (07:34)
[2016-11-26] MEDS ORDERED: TEMA15CA4 PO (07:34)
== END 2016-11-05 12:40 | disposition home or self-care (01) ==
LOC: C.ACU 08:31
PROVIDERS: ATTEND Surgery
DX: I87.8 Other specified disorders of veins (principal); C68.9 Malignant neoplasm of urinary organ, unspecified; I10 Essential (primary) hypertension; D64.9 Anemia, unspecified; Z87.891 Personal history of nicotine dependence

== ENCOUNTER 2017-01-13 04:52 | Emergency (ER) | payer BC, OTHER ==
[~2017-01-13] VITALS: Ht 172.7 cm; Wt 83.0 kg
[~2017-01-13 04:52] MED LIST changes: -ATROPINE SULFATE 0.1 MG/ML 5ML SYR IV PRN; -ESZO1TAB16 PO; -EpHEDrine SULFATE INJ 50 MG/ML AMP IV PRN; -FENTANYL CITRATE INJ 50 MCG/1 ML 2 ML VIAL IV PRN; +FURO-85 PO; -HYDROmorphone INJ 1 MG/ML SYR IV PRN; -LACTATED RINGER'S 1000ML 1,000 ML IV SCH; +MIRT15TA2 PO; -ONDANSETRON INJ 2 MG/ML 2 ML VIAL IV PRN; +POTA10CA28 PO; +ZOLP5TAB PO
[2017-01-13 04:56] VITALS: TEMP 36.4; Ht 172.7 cm; Wt 83.0 kg
--- NOTE | 2017-01-13 05:17 | EMERGENCY ROOM VISIT NOTE ---
History Report prepared by Rick: Nils Cruz Under the Supervision of: Dr. Desiree Marcum M.D. First contact with patient: 05:03 Chief Complaint: FALL Stated Complaint: FELL IN BATHROOM-CANCER PATIENT History of Present Illness The patient is a 71 year old male cancer patient who presents to the Emergency Room with a sudden mechanical fall that occurred last night around 2300. He says that he has been having trouble sleeping, so he called his doctor yesterday and was told to double his dose of Ativan. The patient says that last night was his first time having 2, 5 mg pills of Ambien. He notes that he took the pills around 1900 last night. Per the patient's , the patient reported going to the bathroom around 2300 last night, and he states that he fell in the bathroom. The patient's states that she heard the patient calling for help around an hour and a half ago. The patient notes that he was not out the entire time, but he just could not get up, but says that he still feels a bit fuzzy. He states that he did not hurt himself, but per the patient's , the patient had a nephrostomy tube removed on his right side in September, and this morning there was blood where the site was. The patient denies any chest pain, shortness of breath, abdominal pain, back pain, or worsened leg swelling. He is on Lasix daily. The patient had a blood transfusion last week. He says that he is not on any blood thinners. Per the patient's family, this is the 3rd sleeping medication that the patient has been on, without much help to his sleep. Source of History: patient, family Onset: Around 2300 last night Position: other (global - mechanical fall) Quality: other (took double dose of Ambien) Timing: other (sudden) Associated Symptoms: No chest pain, No SOB, No abdominal pain, No back pain Note: Associated symptoms: Patient feels a bit fuzzy. Bleeding at nephrostomy tube removal site. Denies worsened leg swelling. Review of Systems See HPI for pertinent positives & negatives. A total of 10 systems reviewed and were otherwise negative. Past Medical & Surgical Medical Problems: (1) H/O renal calculi (2) HTN (hypertension) Family History Kidney disease Social History Smoking Status: Former Smoker Marital Status: Housing Status: lives with family Occupation Status: retired Current/Historical Medications Scheduled Ciprofloxacin Tab (Cipro), 500 TAB PO BID Clonidine Hcl (Catapres), 0.1 MG PO BID Docusate Sodium (Colace), 100 MG PO PRN Furosemide (Lasix), 1 TAB PO DAILY Lisinopril (Zestril), 30 MG PO QAM Metoprolol Tartrate (Lopressor) (Lopressor), 50 MG PO BID Mirtazapine Soltab (Remeron Soltab), 15 MG PO DAILY Multiple Vitamin (One Daily), 1 TAB PO QAM Potassium Chloride (Micro-K Ext Rel), 10 MEQ PO DAILY Zolpidem Tartrate (Ambien), 10 MG PO HS Scheduled PRN Hydromorphone Hcl (Dilaudid), 4 MG PO Q6 PRN for Pain Lorazepam (Ativan), 0.5-1 MG PO q hs PRN for Sleep Prochlorperazine Maleate (Compazine), 10 MG PO Q8 PRN for PRN Allergies Coded Allergies: No Known Allergies (Unverified , 01/13/17) Physical Exam Vital Signs Date Time Temp Pulse Resp B/P (MAP) Pulse Ox O2 Delivery O2 Flow Rate FiO2 01/13/17 06:41 101 18 165/73 95 Room Air 01/13/17 05:53 103 01/13/17 04:56 36.4 111 20 151/67 95 Room Air Physical Exam Vital signs reviewed. General: Chronically ill-appearing, pale 71 year old male, in no significant distress. HEENT: No scleral icterus, PERRLA, neck supple. Atraumatic. Cardiovascular: Regular rate and rhythm, no extra sounds. Pulmonary: Clear to auscultation bilaterally, normal work of breathing. Abdomen: Obese abdomen. Soft, nontender, positive bowel sounds. Musculoskeletal: Small area of granulation to the right flank (status-post nephrostomy tube removal) with mild abrasion and bleeding. 2+ pitting edema left greater than right. Neurologic: Patient awake alert and oriented x 3, full strength in all 4 extremities. Cranial nerves 2 through 12 grossly intact. Skin: Warm, dry, no rash. Medical Decision & Procedures ER Provider Diagnostic Interpretation: CT results as stated below per my review and radiologist interpretation: CT HEAD: No acute intracranial hemorrhage or mass effect. Left frontal and occipital encephalomalacia, compatible with remote infarcts. White matter hypodensities, most likely representing small vessel ischemic change. Global cerebral volume loss. No evidence of skull fracture. Paranasal sinuses and mastoid air cells are clear. Lens replacements. Radiologist: Genaro Prabhakar MD Laboratory Results 01/13/17 05:25 Red Blood Count 3.47, Mean Corpuscular Volume 87.6, Mean Corpuscular Hemoglobin 27.7, Mean Corpuscular Hemoglobin Concent 31.6, Mean Platelet Volume 9.2, Neutrophils (%) (Auto) 88.6, Lymphocytes (%) (Auto) 5.0, Monocytes (%) (Auto) 5.9, Eosinophils (%) (Auto) 0.0, Basophils (%) (Auto) 0.1, Neutrophils # (Auto) 18.61, Lymphocytes # (Auto) 1.05, Monocytes # (Auto) 1.24, Eosinophils # (Auto) 0.00, Basophils # (Auto) 0.02 01/13/17 05:25 Test 01/13/17 05:25 01/13/17 05:50 White Blood Count 21.00 K/uL (4.8-10.8) Red Blood Count 3.47 M/uL (4.7-6.1) Hemoglobin 9.6 g/dL (14.0-18.0) Hematocrit 30.4 % (42-52) Mean Corpuscular Volume 87.6 fL (80-100) Mean Corpuscular Hemoglobin 27.7 pg (25-34) Mean Corpuscular Hemoglobin Concent 31.6 g/dl (32-36) Platelet Count 293 K/uL (130-400) Mean Platelet Volume 9.2 fL (7.4-10.4) Neutrophils (%) (Auto) 88.6 % Lymphocytes (%) (Auto) 5.0 % Monocytes (%) (Auto) 5.9 % Eosinophils (%) (Auto) 0.0 % Basophils (%) (Auto) 0.1 % Neutrophils # (Auto) 18.61 K/uL (1.4-6.5) Lymphocytes # (Auto) 1.05 K/uL (1.2-3.4) Monocytes # (Auto) 1.24 K/uL (0.11-0.59) Eosinophils # (Auto) 0.00 K/uL (0-0.5) Basophils # (Auto) 0.02 K/uL (0-0.2) RDW Standard Deviation 50.3 fL (36.4-46.3) RDW Coefficient of Variation 15.8 % (11.5-14.5) Immature Granulocyte % (Auto) 0.4 % Immature Granulocyte # (Auto) 0.08 K/uL (0.00-0.02) Anion Gap 10.0 mmol/L (3-11) Est Creatinine Clear Calc Drug Dose 44.6 ml/min Estimated GFR () 48.7 Estimated GFR (Non- 42.0 BUN/Creatinine Ratio 29.4 (10-20) Calcium Level 8.2 mg/dl (8.5-10.1) Magnesium Level 2.2 mg/dl (1.8-2.4) Total Bilirubin 0.8 mg/dl (0.2-1) Direct Bilirubin 0.4 mg/dl (0-0.2) Aspartate Amino Transf (AST/SGOT) 43 U/L (15-37) Alanine Aminotransferase (ALT/SGPT) 43 U/L (12-78) Alkaline Phosphatase 181 U/L (45-117) Total Creatine Kinase 148 U/L (39-308) Total Protein 7.3 gm/dl (6.4-8.2) Albumin 1.9 gm/dl (3.4-5.0) Ammonia 17.0 umol/L (11-32) Laboratory results per my review. Medications Administered Medications (Trade) Dose Ordered Sig/Cb Route Start Time Stop Time Status Last Admin Dose Admin Sodium Chloride 500 ml @ 999 mls/hr Q31M STAT IV 01/13/17 06:31 01/13/17 07:01 01/13/17 06:31 999 MLS/HR ECG Indication: other (fall) Rate (beats per minute): 107 Rhythm: sinus tachycardia Findings: no acute ischemic change, other (left atrial enlargement, previous inferior infarct) ED Course 0506: Past medical records reviewed. The patient was evaluated in room B10. A complete history and physical examination was performed. 0630: I reevaluated and updated the patient and family. 0631: Ordered NSS 500 ml @ 999 mls/hr IV. Medical Decision Differential diagnosis: Intracranial injury, cervical spine injury, intrathoracic injury, intra- abdominal injury, musculoskeletal injury. This patient was evaluated and appeared to be in no significant distress. The patient is chronically ill and has been having difficulty sleeping. It is unclear if he actually spent 4 hours on the floor or if the hypnotic, Ambien, that he took this evening, some alteration in mental status. The patient's EKG and head CT revealed no acute abnormalities. The patient is unaware of any previous ischemic stroke. His states he has not had any previous had imaging that she is aware of. His laboratory work reveals a leukocytosis of 21, 000. His H&H appears to be stable for now. Patient's creatinine is 1.6 with a BUN of 64. His is concerned that he is not able to keep up with his by mouth fluids and he is taking Lasix for significant lower extremity edema. For now the patient will be taken off of his Lasix 7 days. He was given a 500 mL fluid bolus in the emergency department. The patient is anxious to be discharged. He will be discharged to care of his daughter and . They will contact Dr. Groves's office today for follow-up regarding the laboratory studies as he was due for a lab draw today per oncology. He will stop the Ambien. He is distraught over his lack of sleep and thus far has tried Lunesta , Ambien and they believe Risperdal. The patient was given a prescription for Ativan 0.5 mg daily at bedtime as needed for sleep. The was advised to monitor him closely and sleep next to him. They'll follow-up with the PCP for reevaluation of the sleeping issues. The patient will return to the emergency department for worsening of symptoms or any medical concerns. Medication Reconcilliation Current Medication List: was personally reviewed by me Blood Pressure Screening Patient's blood pressure: Elevated blood pressure Blood pressure disposition: Elevated BP felt to be situational Impression Primary Impression: Drug-induced encephalopathy Additional Impression: Fall at home Scribe Attestation The scribe's documentation has been prepared under my direction and personally reviewed by me in its entirety. I confirm that the note above accurately reflects all work, treatment, procedures, and medical decision making performed by me. Departure Information Prescriptions Lorazepam (ATIVAN) 0.5 Mg Tab 0.5-1 MG PO q hs Y for Sleep, #14 TAB Prov: Desiree Marcum M.D. 01/13/17 Referrals Ta Lagunas MD (PCP) Patient Instructions My [facility] [address] Problem Qualifiers
[2017-01-13 05:42] LABS: HEMATOCRIT 30.4 % (42-52); MEAN CELL VOLUME 87.6 fL (80-100); MEAN CORPUSCULAR HEMOGLOBIN 27.7 pg (25-34); MEAN CORPUSCULAR HGB CONC 31.6 g/dl (32-36); MEAN PLATELET VOLUME 9.2 fL (7.4-10.4); PLATELET COUNT 293 K/uL (130-400); RED BLOOD COUNT 3.47 M/uL (4.7-6.1)
[2017-01-13 06:01] LABS: BUN/CREATININE RATIO 29.4 (10-20); CALCIUM 8.2 mg/dl (8.5-10.1); CREATININE 1.64 mg/dl (0.60-1.40); MAGNESIUM 2.2 mg/dl (1.8-2.4); POTASSIUM 4.3 mmol/L (3.5-5.1)
[2017-01-13 06:13] LABS: BASO % 0.1 %; BASO ABS # 0.02 K/uL (0-0.2); COMPLETE YES; IG% 0.4 %; LYMPH ABS # 1.05 K/uL (1.2-3.4); MONO % 5.9 %; NEUT % 88.6 %
--- NOTE | 2017-01-13 06:29 | DIAGNOSTIC IMAGING REPORT ---
CT HEAD WITHOUT CONTRAST (CT) CLINICAL HISTORY: Head pain status post trauma COMPARISON STUDY: No previous studies for comparison. TECHNIQUE: Axial CT of the brain is performed from the vertex to the skull base. IV contrast was not administered for this examination. A dose lowering technique was utilized adhering to the principles of ALARA. CT DOSE: 537.48 mGy.cm FINDINGS: No intra or extra-axial mass lesions are visualized. There is no CT evidence of acute cortical infarction. There is no evidence of midline shift. There is no acute hemorrhage. No calvarial fractures are visualized. There are patchy white matter hypodensities likely on a small vessel basis. There is an old left frontal and old left occipital lobe infarct. There is no evidence of pathologic ventricular dilatation. There is no evidence of acute sinusitis IMPRESSION: 1. No acute intracranial findings 2. 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 Electronically signed by: Lj Jerez M.D. 01/13/2017 6:28 AM Dictated Date/Time: 01/13/2017 6:27 AM
[2017-01-13] MEDS ORDERED: SODIUM CHLORIDE 0.9% 500ML 500 ML IV STA (06:31)
[2017-01-13] MEDS ORDERED: LORA-741 PO (06:43)
[2017-01-13 07:15] VITALS: BP 159/69; PULSE 99; O2SAT 96
== END 2017-01-13 07:30 | disposition home or self-care (01) ==
LOC: C.EDB 04:54
DX: T42.6X1A Poisoning by other antiepileptic and sedative-hypnotic drugs, accidental (unintentional), initial encounter (principal); G92 Toxic encephalopathy; W19.XXXA Unspecified fall, initial encounter; E66.9 Obesity, unspecified; I10 Essential (primary) hypertension; Z87.442 Personal history of urinary calculi; Z84.1 Family history of disorders of kidney and ureter; Z87.891 Personal history of nicotine dependence; Z79.899 Other long term (current) drug therapy

== ENCOUNTER 2017-01-20 17:09 | Inpatient (IN) | payer BC, OTHER ==
[~2017-01-20] VITALS: Ht 172.7 cm; Wt 86.1 kg
[~2017-01-20 17:09] MED LIST changes: -DIPH1CAP34 PO
[2017-01-20] MEDS ORDERED: PIPERACILLIN/TAZOBACTAM 4.5 GM/100ML D5W IV STA (17:30)
[2017-01-20] MEDS ORDERED: ALBUT/IPRATROP 3MG/0.5MG NEB 3 ML VIAL INH STA (17:30)
[2017-01-20] MEDS ORDERED: VANCOMYCIN 1GM/270ML NSS IV STA (17:30)
[2017-01-20] MEDS ORDERED: SODIUM CHLORIDE 0.9% 1000ML 1,000 ML IV STA (17:30)
[2017-01-20] MEDS ORDERED: DIPH1CAP34 PO (17:42)
[2017-01-20] MEDS ORDERED: ALUMINUM/MAGNESIUM/SIMETH (MAALOX MAX) 30 ML UDC PO PRN (18:45)
[2017-01-20] MEDS ORDERED: MAGNESIUM HYDROXIDE SUSP 30 ML UDC PO PRN (18:45)
[2017-01-20] MEDS ORDERED: POLYETHYLENE (MIRALAX) 17 GM PACK PO PRN (18:45)
[2017-01-20] MEDS ORDERED: ONDANSETRON INJ 2 MG/ML 2 ML VIAL IV PRN (18:45)
[2017-01-20] MEDS ORDERED: ACETAMINOPHEN 325 MG TAB PO PRN (18:45)
--- NOTE | 2017-01-20 19:10 | History and Physical ---
History & Physical Date & Time of Service: Jan 20, 2017 at 19:04 Chief Complaint: Doc Referred Primary Care Physician: Agustín Groves D.O. History of Present Illness Source: patient, family, spouse Mr. Mello is a 71 y/o male with PMHx of Metastatic Urothelial CA to Liver, HTN, Chronic Anemia, and Prolonged QT Syndrome who presents to the ED with referral from Dr. Groves for generalized illness. Patient is undergoing immunotherapy treatment with Tecentriq with last dose on 01/08. Patient reports progressive CADE, cough, chills, and generalized weakness over the past couple days. at bedside reports calling Dr. Groves who ordered labs and chest x-ray and recommended evaluation in the ED. Patient reports cough is predominately dry but is occasionally productive of sputum. He is reporting chills but no documented fever but is currently using twice a day Tylenol for pain. He denies any sick contacts. He does report receiving his flu vaccine this year. He denies shortness of breath at rest but notes CADE however is slightly vague with describing this. He denies orthopnea. He denies significant weight gain but reports bilateral lower extremity edema since starting immunotherapy. He denies previous history of fluid consolidation of the chest. He denies any cardiac history including [place] or CHF. notes that patient does receive blood transfusions every few weeks at [facility] with last infusion on 01/07. In the ED, patient is afebrile with significant leukocytosis. Patient is mildly tachycardic. Lactic acid 1.8. 100% saturation on room air. Does have mild leukocytosis on previous labs but significantly increased. Hemoglobin at 9.1 which is consistent with his baseline. Creatinine elevated at 2.1 with baseline appearing to be normal for up to 1.6. Chest CT with moderate to large right pleural effusion with opacities suggesting infectious or inflammatory bronchiolitis. Urine and blood cultures pending. Past Medical/Surgical History 1. Metastatic Urothelial CA to Liver 2. HTN 3. Chronic Anemia 4. Prolonged QT 5. S/P L Meniscus Repair 6. R Kidney Stone Removal Family History Breast Cancer Kidney disease Social History Smoking Status: Former Smoker Smokeless Tobacco Use: No Alcohol Use: none Drug Use: none Marital Status: Housing status: lives with significant other Occupational Status: retired Allergies Coded Allergies: No Known Allergies (Unverified , 01/20/17) Home Medications Scheduled Ciprofloxacin Tab (Cipro), 500 TAB PO BID Clonidine Hcl (Catapres), 0.1 MG PO BID Diphenhydramine Hcl (Diphenhydramine Hcl), 50 MG PO HS Lisinopril (Zestril), 30 MG PO QAM Metoprolol Tartrate (Lopressor) (Lopressor), 50 MG PO BID Mirtazapine Soltab (Remeron Soltab), 15 MG PO HS Multiple Vitamin (One Daily), 1 TAB PO QAM Potassium Chloride (Micro-K Ext Rel), 10 MEQ PO DAILY Scheduled PRN Hydromorphone Hcl (Dilaudid), 4 MG PO Q6 PRN for Pain Review of Systems Constitutional: + chills, + fatigue, No fever ENT: No nasal symptoms, No sore throat, No trouble swallowing Respiratory: + cough, + sputum (intermittent), + dyspnea on exertion, No dyspnea at rest Cardiovascular: No chest pain, No palpitations Abdomen: + problem reported (poor appetite), No pain, No nausea, No vomiting, No diarrhea, No constipation Musculoskeletal: + swelling (b/l lower extremity L > R), No calf pain Genitourinary - Male: + urinary frequency, No dysuria Neurologic: No balance problems Hematologic / Lymphatic: No abnormal bleeding/bruising, No clotting problems Integumentary: + problem reported (R nephrostomy tube site with drainage - resolving), No rash Physical Exam Vital Signs Date Time Temp Pulse Resp B/P (MAP) Pulse Ox O2 Delivery O2 Flow Rate FiO2 01/20/17 18:34 109 01/20/17 18:25 99 Room Air 01/20/17 17:18 36.7 110 20 171/80 100 Room Air General Appearance: WD/WN, no apparent distress Head: normocephalic, atraumatic Eyes: sclerae normal ENT: hearing grossly normal, + pertinent finding (tongue with thrush-like appearance; no lesions or exudates in posterior pharynx) Neck: supple, no JVD, trachea midline Respiratory/Chest: no respiratory distress, no accessory muscle use, + decreased breath sounds (R midlung to base), + pertinent finding (L lung clear without wheezing or crackles) Cardiovascular: regular rate, rhythm, no gallop, no murmur Abdomen/GI: normal bowel sounds, non tender, soft Extremities/Musculoskelatal: no calf tenderness, + swelling (L > R 2-3+ pitting edema extending up to knee) Neurologic/Psych: alert, oriented x 3 Diagnostics Laboratory Results Results Past 24 Hours Test 01/20/17 18:20 Range/Units Lactic Acid Level 1.8 0.4-2.0 mmol/L Diagnostic Radiology (CHEST) THORAX WITHOUT FINDINGS: Heterogeneous thyroid with a 1.0 cm partially calcified nodule inferior left thyroid. Left subclavian Hwgwfw-[id number] catheter terminates within the SVC just proximal to the superior cavoatrial junction. Heart is normal in size without pericardial effusion. Moderate atherosclerosis of the aorta. No pathologic-appearing adenopathy of the chest identified. Moderate to large right pleural effusion with subsegmental consolidative opacities of the right lung base suggesting passive atelectasis. Parenchymal hyperdensities within the right lower lobe are noted which appear new from 11/13/2016. No pneumothorax. Groundglass and nodular tree-in-bud opacities are present within the basal left lower lobe. Central airways appear patent. Multiple heterogeneous ill-defined lesions are seen to the liver, largest of which measures 4.8 cm within the hepatic dome suggesting metastasis. Stranding of the right flank is again noted at area of prior nephrostomy catheter placement. Partially imaged collection of the superior pole right kidney is again noted. Soft tissues are otherwise unremarkable. 7 mm sclerotic lesion involves the posterior right ninth rib which is unchanged from comparison study and may reflect a bone island. There is a lucent lesion noted involving the anterolateral aspect of the left sixth rib on image 176 series 4. No additional suspicious lytic or blastic bony lesions. Multilevel endplate spurring of the spine. IMPRESSION: 1. Moderate to large right sided pleural effusion with subsegmental right basilar opacities suggesting passive atelectasis. Parenchymal hyperdensities within the basal right lower lobe are new from prior study suggesting calcification or possibly aspirated barium. 2. Groundglass and nodular tree-in-bud opacities within the basal left lower lobe suggest infectious or inflammatory bronchiolitis. 3. Multiple low attenuating ill-defined lesions of the liver are again seen suggesting metastasis. 4. Partially imaged heterogeneous collection of the lateral aspect interpolar right kidney again seen. 5. Lucent lesion of the lateral left sixth rib redemonstrated which appears unchanged. Impression Assessment and Plan Mr. Mello is a 71 y/o male with PMHx of Metastatic Urothelial CA to Liver, HTN, Chronic Anemia, and Prolonged QT Syndrome who presents to the ED with referral from Dr. Groves for generalized illness. Possible Sepsis from Pulmonary vs Urinary vs Previous Nephrostomy Tube: Immunocompromised - Labs prior to ED arrival reveal leukocytosis of 23.65; blood culture and urine culture pending; culture from previous nephrostomy tube pending -- Nephrostomy tube removed x 2-3 months ago - was placed initially before the diagnosis of CA given - no issues other than drainage as patient fell on and was bleeding from this site - Patient is tachycardic with leukocytosis - suspecting source is pulmonary - Zosyn and Vancomycin and will cover with Nena Large R Pleural Effusion: Exudative - Malignant vs Infection - No previous history of pleural effusions or congestive failure - does have metastatic cancer and undergoing immunotherapy - Chronic lower extremity edema starting immunotherapy - recently treated with Lasix times approximately 4-5 weeks - per this was stopped due to elevation in kidney function - Consult thoracic surgery - appreciate recommendations and possible need for thoracentesis 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: - Gentle hydration with NSS at 75 mL/hr - Hold Lisinopril and other nephrotoxic agents - continue to monitor with BMP Oral Thrush: - Nystatin swish Metastatic Urethelial CA to Liver: Immunotherapy with Tecentriq - Last treatment on 01/08 with next scheduled for 01/29 - Does require intermittent blood transfusions with last on 01/07 - On suppressive Cipro 500 mg BID and will hold while receiving IV antibiotics - Tylenol 1000 mg BID; Dilaudid 4 mg PRN (patient reports hasn't needed this as Tylenol has helped) - Consult Oncology - appreciate recommendations HTN: - Clonidine 0.1 mg BID and Lopressor 50 mg BID - Hold Lisinopril and cover with Hydralazine PRN Insomnia: - Benadryl 50 mg HS and Remeron 15 mg HS - Avoid Ambien and Ativan as patient got delirious on this medication DVT Prophylaxis: SCDs Code Status: FULL RESUSCITATION Disposition: - Lives at home with spouse, does not utilize assistive devices, does not anticipate any home needs - PT/OT Level of Care Telemetry Resuscitation Status FULL RESUSCITATION VTE Prophylaxis VTE Risk Assessment Done? Y/N: Yes Risk Level: Moderate Given or contraindicated: Unfractionated heparin SQ Social Service Consult Cancer Patient Under [place] Reviewed: Pt Seen/Exam by Me History Agree with HPI/ROS/Plan. See my note for details.
--- NOTE | 2017-01-20 19:12 | DIAGNOSTIC IMAGING REPORT ---
(CHEST) THORAX WITHOUT CT DOSE: 371.88 mGy.cm CLINICAL HISTORY: 71 years-old Male with poss pneumonia and fluid. Pleural effusion with possible pneumonia. History of neoplasm of renal pelvis TECHNIQUE: Multiaxial CT images of the chest were performed without contrast. A dose lowering technique was utilized adhering to the principles of ALARA. COMPARISON: Chest radiograph 01/20/2017, CT abdomen and pelvis 11/13/2016 and 09/21/2016 and 07/19/2016. FINDINGS: Heterogeneous thyroid with a 1.0 cm partially calcified nodule inferior left thyroid. Left subclavian Uovxkc-v-Uvqk catheter terminates within the SVC just proximal to the superior cavoatrial junction. Heart is normal in size without pericardial effusion. Moderate atherosclerosis of the aorta. No pathologic-appearing adenopathy of the chest identified. Moderate to large right pleural effusion with subsegmental consolidative opacities of the right lung base suggesting passive atelectasis. Parenchymal hyperdensities within the right lower lobe are noted which appear new from 11/13/2016. No pneumothorax. Groundglass and nodular tree-in-bud opacities are present within the basal left lower lobe. Central airways appear patent. Multiple heterogeneous ill-defined lesions are seen to the liver, largest of which measures 4.8 cm within the hepatic dome suggesting metastasis. Stranding of the right flank is again noted at area of prior nephrostomy catheter placement. Partially imaged collection of the superior pole right kidney is again noted. Soft tissues are otherwise unremarkable. 7 mm sclerotic lesion involves the posterior right ninth rib which is unchanged from comparison study and may reflect a bone island. There is a lucent lesion noted involving the anterolateral aspect of the left sixth rib on image 176 series 4. No additional suspicious lytic or blastic bony lesions. Multilevel endplate spurring of the spine. IMPRESSION: 1. Moderate to large right sided pleural effusion with subsegmental right basilar opacities suggesting passive atelectasis. Parenchymal hyperdensities within the basal right lower lobe are new from prior study suggesting calcification or possibly aspirated barium. 2. Groundglass and nodular tree-in-bud opacities within the basal left lower lobe suggest infectious or inflammatory bronchiolitis. 3. Multiple low attenuating ill-defined lesions of the liver are again seen suggesting metastasis. 4. Partially imaged heterogeneous collection of the lateral aspect interpolar right kidney again seen. 5. Lucent lesion of the lateral left sixth rib redemonstrated which appears unchanged. Electronically signed by: Ludwin Lynne M.D. 01/20/2017 7:10 PM Dictated Date/Time: 01/20/2017 6:58 PM
--- NOTE | 2017-01-20 19:22 | Progress Note ---
Progress Note Date of Service Jan 20, 2017. Progress Note Pt seen and examined by me. He is not SOB at rest now, but was a bit earlier. More issues with SOB. No chest pain. His biggest concern is that he is very tired and fatigued. Has been eating without issue. Agree with above HPI and ROS as noted. Exam: Gen: NAD, family present Neck: Supple Eyes: WNL Hrt: RRR , 2+ pitting b/l Lungs: Decreased breath sounds on R with crackles, neg resp distress Abd: + BS, soft, nonTTP LE: neg for edema, nonTTP Neuro: A&O x3, pleasant Skin: neg for rash, warm/dry Plan: Agree with plan as outlined by Ms. Wyman Large pleural effusion, ?? PNA CT chest pending UA abnormal, cx pending Vanco/zosyn Elevated WBC CT surg c/s given size of effusion IVF for ARF, if more LE swelling, will d/c
[2017-01-20 19:45] VITALS: BP 153/65; PULSE 115; O2SAT 97; Ht 172.7 cm; Wt 86.1 kg
--- NOTE | 2017-01-20 19:56 | EMERGENCY ROOM VISIT NOTE ---
History Report prepared by Rick: Tami Valdez Under the Supervision of: Dr. Kevin Bauman M.D. First contact with patient: 17:22 Chief Complaint: REFERRED BY DOCTOR Stated Complaint: DOC REFERRED History of Present Illness The patient is a 71 year old male who presents to the Emergency Room with complaints of a generalized illness. The patient was referred to the Emergency Department by his oncologist. The patient states he has been experiencing chills , shortness of breath, a dry cough, and lack of sleep. He denies having a fever , vomiting, or diarrhea. The patient notes that he has been having frequent urination, but denies any other urinary symptoms. 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 He denies a history of blood clots. The patient notes that he used to smoke, but stopped smoking years ago. The patient had lab work, imaging and blood cultures done prior to arrival. Source of History: patient Onset: this week Position: other (global) Quality: other (generalized illness) Timing: other (persistent) Associated Symptoms: + chills, + cough, + SOB, No fevers, No vomiting, No diarrhea Review of Systems ROS: Please see HPI. At least 10 systems in total were reviewed and otherwise negative. Past Medical & Surgical Medical Problems: (1) H/O renal calculi (2) HTN (hypertension) (3) Pleural effusion on right (4) Sepsis Family History Kidney disease Social History Smoking Status: Former Smoker Marital Status: Housing Status: lives with family Occupation Status: retired Current/Historical Medications Scheduled Ciprofloxacin Tab (Cipro), 500 TAB PO BID Clonidine Hcl (Catapres), 0.1 MG PO BID Diphenhydramine Hcl (Diphenhydramine Hcl), 50 MG PO HS Lisinopril (Zestril), 30 MG PO QAM Metoprolol Tartrate (Lopressor) (Lopressor), 50 MG PO BID Mirtazapine Soltab (Remeron Soltab), 15 MG PO HS Multiple Vitamin (One Daily), 1 TAB PO QAM Potassium Chloride (Micro-K Ext Rel), 10 MEQ PO DAILY Scheduled PRN Hydromorphone Hcl (Dilaudid), 4 MG PO Q6 PRN for Pain Allergies Coded Allergies: No Known Allergies (Unverified , 01/20/17) Physical Exam Vital Signs Date Time Temp Pulse Resp B/P (MAP) Pulse Ox O2 Delivery O2 Flow Rate FiO2 01/20/17 18:34 109 01/20/17 18:25 99 Room Air 01/20/17 17:18 36.7 110 20 171/80 100 Room Air Physical Exam GENERAL: Patient is in no acute distress. HEENT: No acute trauma, normocephalic atraumatic, mucous membranes moist, no nasal congestion, no scleral icterus. NECK: No stridor, no adenopathy, no meningismus, trachea is midline. LUNGS: Clear to auscultation bilaterally, no wheeze, no rhonchi, decreased breath sounds on the right. HEART: Tachycardic with regular rhythm and murmur ABDOMEN: Soft, nontender, bowel sounds positive, no hernias, no peritonitis. EXTREMITIES: Moderate pedal edema without cellulitis. No cyanosis, full range of motion of all the joints without pain or difficulty, no signs for acute trauma. NEUROLOGIC: Oriented x 3, no acute motor or sensory deficits, no focal weakness. SKIN: No rash, no jaundice, no diaphoresis. Medical Decision & Procedures ER Provider Diagnostic Interpretation: Radiology results as stated below per my review and radiologist interpretation: (CHEST) THORAX WITHOUT CT DOSE: 371.88 mGy.cm CLINICAL HISTORY: 71 years-old Male with poss pneumonia and fluid. Pleural effusion with possible pneumonia. History of neoplasm of renal pelvis TECHNIQUE: Multiaxial CT images of the chest were performed without contrast. A dose lowering technique was utilized adhering to the principles of ALARA. COMPARISON: Chest radiograph 01/20/2017, CT abdomen and pelvis 11/13/2016 and 09/21/2016 and 07/19/2016. FINDINGS: Heterogeneous thyroid with a 1.0 cm partially calcified nodule inferior left thyroid. Left subclavian Bgrpev-v-Besa catheter terminates within the SVC just proximal to the superior cavoatrial junction. Heart is normal in size without pericardial effusion. Moderate atherosclerosis of the aorta. No pathologic-appearing adenopathy of the chest identified. Moderate to large right pleural effusion with subsegmental consolidative opacities of the right lung base suggesting passive atelectasis. Parenchymal hyperdensities within the right lower lobe are noted which appear new from 11/13/2016. No pneumothorax. Groundglass and nodular tree-in-bud opacities are present within the basal left lower lobe. Central airways appear patent. Multiple heterogeneous ill-defined lesions are seen to the liver, largest of which measures 4.8 cm within the hepatic dome suggesting metastasis. Stranding of the right flank is again noted at area of prior nephrostomy catheter placement. Partially imaged collection of the superior pole right kidney is again noted. Soft tissues are otherwise unremarkable. 7 mm sclerotic lesion involves the posterior right ninth rib which is unchanged from comparison study and may reflect a bone island. There is a lucent lesion noted involving the anterolateral aspect of the left sixth rib on image 176 series 4. No additional suspicious lytic or blastic bony lesions. Multilevel endplate spurring of the spine. IMPRESSION: 1. Moderate to large right sided pleural effusion with subsegmental right basilar opacities suggesting passive atelectasis. Parenchymal hyperdensities within the basal right lower lobe are new from prior study suggesting calcification or possibly aspirated barium. 2. Groundglass and nodular tree-in-bud opacities within the basal left lower lobe suggest infectious or inflammatory bronchiolitis. 3. Multiple low attenuating ill-defined lesions of the liver are again seen suggesting metastasis. 4. Partially imaged heterogeneous collection of the lateral aspect interpolar right kidney again seen. 5. Lucent lesion of the lateral left sixth rib redemonstrated which appears unchanged. Electronically signed by: Ludwin Lynne M.D. 01/20/2017 7:10 PM Laboratory Results Test 01/20/17 18:20 Lactic Acid Level 1.8 mmol/L (0.4-2.0) Laboratory results reviewed by me. Medications Administered Medications (Trade) Dose Ordered Sig/[facility] Route Start Time Stop Time Status Last Admin Dose Admin Sodium Chloride 1,000 ml @ 999 mls/hr Q1H1M STAT IV 01/20/17 17:30 01/20/17 18:30 DC 01/20/17 18:52 999 MLS/HR Piperacillin Sod/ Tazobactam Sod (Zosyn Iv) 4.5 gm NOW STAT IV 01/20/17 17:30 01/20/17 17:36 DC 01/20/17 18:52 4.5 GM Vancomycin HCl (Vancomycin 1gm/ 270ml Nss) 1 gm NOW STAT IV 01/20/17 17:30 01/20/17 17:36 DC 01/20/17 20:06 1 GM Albuterol/ Ipratropium (Duoneb) 3 ml NOW STAT INH 01/20/17 17:30 01/20/17 17:36 DC 01/20/17 18:52 3 ML Sodium Chloride 1,000 ml @ 75 mls/hr [id number] IV 01/20/17 18:40 01/21/17 21:19 01/20/17 20:06 75 MLS/HR ED Course 1501: The patient was evaluated in room C1. A complete history and physical exam was performed. 1650: I reevaluated the patient and he was resting comfortably. 1730: Ordered Sodium Chloride 1000ml @ 999mls/hr IV, Zosyn IV 4.5gm IV, Vancomycin HCL 1gm IV, and Duoneb 3ml INH. Medical Decision The patient is a 71 year old male who presents to the ED with complaints of a generalized illness. Differential diagnoses considered include Sepsis, Pneumonia, Bronchitis, UTI, Anemia, Dehydration, Electrolyte imbalance, Cellulitis, PE. . There is a significant leukocytosis at 23,000, this is consistent with infection. The patient is anemic, this is baseline though. There is evidence for some acute on chronic renal failure. No hepatitis. Urinalysis is suggestive of possible infection. Urine culture and blood cultures are pending. Chest film shows a right lung pneumonia with effusion. Chest CT demonstrates possible pneumonia versus atelectasis with a large right pleural effusion. Lactic acid level was not elevated making severe sepsis less likely. The patient had already undergone the chest x-ray and lab work prior to his arrival in the ED. He was in need of a hospital stay for his presentation. He appears to have pneumonia, he may have early sepsis. He was given IV saline, IV Zosyn and IV vancomycin. He was given a DuoNeb. I did speak to case management, the on-call hospitalist was consulted. Admission/observation is warranted. Blood Pressure Screening Patient's blood pressure: Elevated blood pressure Blood pressure disposition: Elevated BP felt to be situational Consults Time Called: 1646 Consulting Physician: Dr. Gracie Jackson, [facility] [place] Returned Call: [phone] Discussed the patient's case. The patient will be evaluated for further management. Impression Primary Impression: Pneumonia Additional Impressions: Pleural effusion Leukocytosis Renal failure Critical Care I have personally spent greater than 30 minutes of critical care time in the direct management of this patient. This includes bedside care, interpretation of diagnostic studies and testing, discussion with consultants, the patient, and family members, and other required patient management activities. This 30 minutes is in excess of all separately billable procedures. Scribe Attestation The scribe's documentation has been prepared under my direction and personally reviewed by me in its entirety. I confirm that the note above accurately reflects all work, treatment, procedures, and medical decision making performed by me. Departure Information Dispostion Being Evaluated By Hospitalist Referrals Agustín Groves D.O. (PCP) Patient Instructions My [facility] Problem Qualifiers
[2017-01-20] MEDS: SODIUM CHLORIDE 0.9% 1000ML 1,000 ML IV SCH (20:06)
[2017-01-20 20:18] VITALS: PULSE 112; O2SAT 95
[2017-01-20] MEDS: ALBUT/IPRATROP 3MG/0.5MG NEB 3 ML VIAL INH SCH (20:18)
[2017-01-20] MEDS ORDERED: PIPERACILL/TAZOBAC CONSULT ACTIVE PRN (20:30)
[2017-01-20] MEDS ORDERED: VANCOMYCIN CONSULT ACTIVE PRN (20:45)
[2017-01-20] MEDS: CLONIDINE HCL 0.1 MG TAB PO SCH (20:49)
[2017-01-20] MEDS: NYSTATIN SUSP 500,000 U/5 ML UDC PO SCH (20:50)
[2017-01-20] MEDS: MIRTAZAPINE TAB 15 MG TAB PO SCH (20:50)
[2017-01-20] MEDS: METOPROLOL TARTRATE 50 MG TAB PO SCH (20:50)
[2017-01-20] MEDS: ACETAMINOPHEN 500 MG TAB PO SCH (20:51)
[2017-01-20] MEDS ORDERED: HEPARIN SOD 5000 UNIT/0.5 ML CARP SQ SCH (21:00)
--- NOTE | 2017-01-20 21:12 | Pharmacy Progress Note ---
Pharmacy Abx Initial Consult Date of Service Jan 20, 2017. Pharmacy Dosing Scope Date of Consult: 01/20/17 Consultation requested by: Brandi Fermin PA-C Pharmacy is consulted to initiate Vancomycin IV dosing therapy, order appropriate labs and adjust drug dose/frequency. Subjective The patient is a 71 year old male admitted on Jan 20, 2017 at 18:53. Objective Height (Feet): 5 Height (Inches): 8.00 Weight (Kilograms): 80.900 Vital Signs (Past 12Hrs) Vital Signs Past 12 Hours Date Time Temp Pulse Resp B/P (MAP) Pulse Ox O2 Delivery O2 Flow Rate FiO2 01/20/17 20:18 112 16 95 Room Air 01/20/17 19:45 97 Room Air 01/20/17 19:45 115 24 153/65 (94) 97 Room Air 01/20/17 19:24 110 37 99 01/20/17 19:21 156/64 01/20/17 19:21 156/64 01/20/17 19:09 111 28 98 01/20/17 19:09 111 28 98 01/20/17 18:34 109 01/20/17 18:25 99 Room Air 01/20/17 17:18 36.7 110 20 171/80 100 Room Air Lab Results (24Hrs) Laboratory Tests (24 Hours) Test 01/20/17 18:20 Lactic Acid Level 1.8 mmol/L (0.4-2.0) Micro Results Date/Time Source Procedure Growth Status 01/20/17 20:40 Nasal MRSA DNA Surveillance Screen Pending Received Risk Factors for Resistance * Immunocompromised (chemotherapy, immunomodulators) Assessment & Plan Assessment 71 year old male with possible sepsis from pulmonary source? Plan Vancomycin IV * Vancomycin 1 gm IV x 1 (ED order) was given at 2000 tonight. * Since a loading dose was not given the maintenance dose is ordered to start in 8 hrs- 1250 mg IV (15.5mg/kg) every 24 hours * Goal trough level for Sepsis: 15 to 20 mcg/mL * Trough Vanco level ordered for 12/2 before dose at 6 am. * Estimated p'kinetics: Ke = 0.041/hr, t1/2 = 16 hrs, Vd = 0.7 L/kg Pharmacy will continue to follow and will adjust dose/frequency as necessary. Thank you.
[2017-01-21] VITALS (15 sets, daily range): BP systolic 121–183; BP diastolic 67–84; PULSE 71–113; TEMP 36.3–37; O2SAT 92–100
[2017-01-21] MEDS: PIPERACILL/TAZOBAC IV 3.375 GM in DEXTROSE 5% 100ML 100 ML IV SCH ×3 (00:32→15:56)
[2017-01-21] MEDS: VANCOMYCIN INJ 1,250 MG in SODIUM CHLORIDE 0.9% 250ML 250 ML IV SCH (06:13)
[2017-01-21 06:53] LABS: MEAN CELL VOLUME 86.4 fL (80-100); MEAN CORPUSCULAR HEMOGLOBIN 27.2 pg (25-34); MEAN CORPUSCULAR HGB CONC 31.4 g/dl (32-36); MEAN PLATELET VOLUME 9.2 fL (7.4-10.4); PLATELET COUNT 209 K/uL (130-400); RED BLOOD COUNT 3.24 M/uL (4.7-6.1); WHITE BLOOD COUNT 27.16 K/uL (4.8-10.8)
[2017-01-21] MEDS: ALBUT/IPRATROP 3MG/0.5MG NEB 3 ML VIAL INH SCH ×4 (07:00→19:05)
[2017-01-21 07:31] LABS: BUN/CREATININE RATIO 35.5 (10-20); CALCIUM 7.7 mg/dl (8.5-10.1); CREATININE 1.89 mg/dl (0.60-1.40); MAGNESIUM 2.5 mg/dl (1.8-2.4); POTASSIUM 4.7 mmol/L (3.5-5.1)
[2017-01-21 07:35] LABS: ANISOCYTOSIS PRESENT; BASO % 0.1 %; BASO ABS # 0.02 K/uL (0-0.2); COMPLETE YES; IG% 0.6 %; LYMPH % 3.3 %; MONO % 5.4 %; NEUT % 90.6 %; POIKILOCYTOSIS PRESENT
[2017-01-21] MEDS: METOPROLOL TARTRATE 50 MG TAB PO SCH ×2 (07:41→21:07)
[2017-01-21] MEDS: ACETAMINOPHEN 500 MG TAB PO SCH ×2 (07:42→21:08)
[2017-01-21] MEDS: MULTIVITAMIN TAB PO SCH (07:42)
[2017-01-21] MEDS: CLONIDINE HCL 0.1 MG TAB PO SCH ×2 (07:42→21:09)
[2017-01-21] MEDS: NYSTATIN SUSP 500,000 U/5 ML UDC PO SCH ×4 (07:43→21:07)
[2017-01-21] MEDS: SODIUM CHLORIDE 0.9% 1000ML 1,000 ML IV SCH (07:44)
--- NOTE | 2017-01-21 08:29 | Hospitalist Progress Note ---
Hospitalist Progress Note Date of Service Jan 21, 2017. Subjective Pt evaluation today including: conversation w/ patient, conversation w/ family , physical exam, chart review, lab review, review of studies, conversation w/ [facility] adf consultant Pain: None PO Intake: Fair Voiding: no voiding problems The patient was seen and examined this morning. Pt reports feeling better this morning than yesterday. His Katerine is with him at bedside. He denies feeling short of breath on exertion at first, but then admits to feeling more winded with ADLS and normal activity which used to not be difficult for him. He is coughing but is nonproductive. 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 He does describe orthopnea where this has been going on for a few weeks. He reports the swelling in his left leg has been present for 10 years to some degree, but reports this is due to a childhood injury. He is unable to state how long his legs have been swollen for and can not offer time frame idea. He denies any night sweats, chills or fever. No chest pain, shortness of breath at rest. He denies chest pain, flutter, palpitation. No abd pain, n/v/d /c. Last BM was this morning. All other ROS reviewed and otherwise negative. Objective Vital Signs Date Time Temp Pulse Resp B/P (MAP) Pulse Ox O2 Delivery O2 Flow Rate FiO2 01/21/17 07:58 36.3 91 24 183/84 (117) 100 Room Air 01/21/17 06:59 89 16 96 Room Air 01/21/17 04:00 98 Room Air 01/21/17 03:35 36.8 82 20 158/83 (108) 98 Room Air 01/21/17 00:08 36.4 74 18 124/67 (86) 95 Room Air 01/21/17 00:01 95 Room Air 01/20/17 20:18 112 16 95 Room Air 01/20/17 19:45 97 Room Air 01/20/17 19:45 115 24 153/65 (94) 97 Room Air 01/20/17 19:24 110 37 99 01/20/17 19:21 156/64 01/20/17 19:21 156/64 01/20/17 19:09 111 28 98 01/20/17 19:09 111 28 98 01/20/17 18:34 109 01/20/17 18:25 99 Room Air 01/20/17 17:18 36.7 110 20 171/80 100 Room Air Physical Exam General Appearance: WD/WN, no apparent distress Eyes: normal inspection, PERRL, EOMI ENT: hearing grossly normal, pharynx normal, + pertinent finding (white plaque on tongue) Neck: supple, no JVD Respiratory/Chest: + pertinent finding (on RA, very faint crackles in Left lower lobe, + diminished breath sounds in the RLL, RML and posterior RUL. Breath sounds present in the anterior RUL. + wet cough, nonproductive. No wheeze or rales.) Cardiovascular: regular rate, rhythm, no murmur Abdomen: normal bowel sounds, non tender, soft Extremities: + pertinent finding (2+ pitting edema in the LLE, 3+ edema in the RLE) Neurologic/Psychiatric: alert, normal mood/affect, oriented x 3, + pertinent finding (slightly anxious) Skin: normal color, warm/dry Laboratory Results Last 24 Hours Test 01/20/17 18:20 01/21/17 06:43 Lactic Acid Level 1.8 mmol/L White Blood Count 27.16 K/uL Red Blood Count 3.24 M/uL Hemoglobin 8.8 g/dL Hematocrit 28.0 % Mean Corpuscular Volume 86.4 fL Mean Corpuscular Hemoglobin 27.2 pg Mean Corpuscular Hemoglobin Concent 31.4 g/dl Platelet Count 209 K/uL Mean Platelet Volume 9.2 fL Neutrophils (%) (Auto) 90.6 % Lymphocytes (%) (Auto) 3.3 % Monocytes (%) (Auto) 5.4 % Eosinophils (%) (Auto) 0.0 % Basophils (%) (Auto) 0.1 % Neutrophils # (Auto) 24.61 K/uL Lymphocytes # (Auto) 0.90 K/uL Monocytes # (Auto) 1.47 K/uL Eosinophils # (Auto) 0.01 K/uL Basophils # (Auto) 0.02 K/uL RDW Standard Deviation 53.2 fL RDW Coefficient of Variation 17.1 % Immature Granulocyte % (Auto) 0.6 % Immature Granulocyte # (Auto) 0.15 K/uL Poikilocytosis PRESENT Anisocytosis PRESENT Sodium Level 136 mmol/L Potassium Level 4.7 mmol/L Chloride Level 108 mmol/L Carbon Dioxide Level 21 mmol/L Anion Gap 7.0 mmol/L Blood Urea Nitrogen 67 mg/dl Creatinine 1.89 mg/dl Est Creatinine Clear Calc Drug Dose 39.0 ml/min Estimated GFR () 41.0 Estimated GFR (Non- 35.4 BUN/Creatinine Ratio 35.5 Random Glucose 111 mg/dl Calcium Level 7.7 mg/dl Magnesium Level 2.5 mg/dl Assessment and Plan Mr. Mello is a 71 y/o male with PMHx of Metastatic Urothelial CA to Liver, HTN, Chronic Anemia, and Prolonged QT Syndrome who presents to the ED with referral from Dr. Groves for generalized illness. Possible Sepsis from Pulmonary vs Urinary vs Previous Nephrostomy Tube Immunocompromised - CT chest with large R sided pleural effusion and Groundglass and nodular tree- in-bud opacities within the basal left lower lobe suggest infectious or inflammatory bronchiolitis. - Labs prior to ED arrival reveal leukocytosis of 23.65; today elevated at 27K - blood culture and urine culture pending - culture from previous nephrostomy tube pending - Nephrostomy tube removed x 2-3 months ago - was placed initially before the diagnosis of CA given - Zosyn and Vancomycin day #2 - Duonebs Large R Pleural Effusion Exudative - Malignant vs Infection - Thoracic surgery on board- plan for thoracentesis vs chest tube insertion later today - No previous history of pleural effusions or congestive failure- CXR from mid Sept reviewed when mediport was placed and there was no indication of acute findings at that time. 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: - Cont NSS at 75 mL/hr - will let this run another day, follow prp - Cr improved to 1.89, baseline appears to be ~1.2 - Hold Lisinopril and other nephrotoxic agents - continue to monitor with BMP Oral Thrush: - Nystatin swish and spit Metastatic Urethelial CA to Liver, possibly left 6th rib with lucency seen on imaging - Chemotherapy with Tecentriq last tx on 01/08 with next scheduled for 01/29 - Has required intermittent blood transfusions - last on 01/07 - On suppressive Cipro 500 mg BID OUTBOARD MOTOR TESTER - HOLD - Tylenol 1000 mg BID; Dilaudid 4 mg PRN (patient reports hasn't needed this as Tylenol has helped) - Consult Oncology - appreciate recs HTN: - Clonidine 0.1 mg BID, Lopressor 50 mg BID - Hold Lisinopril and cover with Hydralazine PRN Insomnia: - Benadryl 50 mg HS and Remeron 15 mg HS - Avoid Ambien and Ativan as patient got delirious on this medication DVT Prophylaxis: SCDs Code Status: FULL RESUSCITATION Disposition: - Lives at home with spouse, does not utilize assistive devices, does not anticipate any home needs - PT/OT
--- NOTE | 2017-01-21 09:03 | Oncology Consultation ---
Oncology/Heme Consultation Date of Consultation: Jan 21, 2017. Attending Physician: Gracie Jackson DO Reason for Consultation: Shortness of breath Pleural effusion Metastatic urothelial carcinoma History of Present Illness Mr. Mello is a 71 year old man with metastatic upper tract urothelial carcinoma. He's been primarily managed at [facility] and is currently on second- line therapy with a PD-L1 inhibitor (atezolizumab). He has received 3 doses thus far, most recently last week. He was seen yesterday in our office and was found to have increasing shortness of breath. A chest x-ray revealed a large right pleural effusion and so he was sent to the ER for further evaluation. CT chest there revealed a moderate to large right sided pleural effusion with subsegmental right basilar opacities suggesting passive atelectasis, along with groundglass and nodular tree-in-bud opacities within the basal left lower lobe suggest infectious or inflammatory bronchiolitis. He was also found to have a leukocytosis with neutrophilic predominance, though he was afebrile and denies any purulent sputum. He denies any other infectious symptoms, such as dysuria or diarrhea. He is generally weak and appears slightly uncomfortable breathing. Past Medical/Surgical History Medical Problems: (1) Anemia Status: Acute (2) ARF (acute renal failure) Status: Acute (3) Drug-induced encephalopathy Status: Acute (4) Fall at home Status: Acute (5) Leukocytosis Status: Acute (6) Leukocytosis Status: Acute (7) Pleural effusion Status: Acute (8) Pneumonia Status: Acute (9) Renal failure Status: Acute (10) UTI (urinary tract infection) Status: Acute Family History Breast Cancer Kidney disease Social History Smoking Status: Former Smoker Smokeless Tobacco Use: No Alcohol Use: none Drug Use: none Marital Status: Housing Status: lives with family Occupation Status: retired Allergies Coded Allergies: No Known Allergies (Unverified , 01/20/17) Home Medications Scheduled Ciprofloxacin Tab (Cipro), 500 TAB PO BID Clonidine Hcl (Catapres), 0.1 MG PO BID Diphenhydramine Hcl (Diphenhydramine Hcl), 50 MG PO HS Lisinopril (Zestril), 30 MG PO QAM Metoprolol Tartrate (Lopressor) (Lopressor), 50 MG PO BID Mirtazapine Soltab (Remeron Soltab), 15 MG PO HS Multiple Vitamin (One Daily), 1 TAB PO QAM Potassium Chloride (Micro-K Ext Rel), 10 MEQ PO DAILY Scheduled PRN Hydromorphone Hcl (Dilaudid), 4 MG PO Q6 PRN for Pain Current Inpatient Medications Current Inpatient Medications Medications (Trade) Dose Ordered Sig/Cb Route Start Time Stop Time Status Last Admin Dose Admin Sodium Chloride 1,000 ml @ 75 mls/hr [id number] IV 01/20/17 18:40 01/21/17 21:19 01/21/17 07:44 75 MLS/HR Acetaminophen (Tylenol Tab) 650 mg Q6H PRN PO 01/20/17 18:45 02/19/17 18:44 Al Hydrox/Mg Hydrox/Simethicone (Maalox Max Susp) 15 ml Q4H PRN PO 01/20/17 18:45 02/19/17 18:44 Magnesium Hydroxide (Milk Of Magnesia Susp) 30 ml Q12H PRN PO 01/20/17 18:45 02/19/17 18:44 Ondansetron HCl (Zofran Inj) 4 mg Q6H PRN IV 01/20/17 18:45 02/19/17 18:44 Polyethylene (Miralax Powder Packet) 17 gm DAILY PRN PO 01/20/17 18:45 02/19/17 18:44 Clonidine HCl (Catapres Tab) 0.1 mg BID PO 01/20/17 21:00 02/19/17 20:59 01/21/17 07:42 0.1 MG Hydromorphone HCl (Dilaudid Tab) 4 mg Q6 PRN PO 01/20/17 18:45 02/03/17 18:44 Metoprolol Tartrate (Lopressor Tab) 50 mg BID PO 01/20/17 21:00 02/19/17 20:59 01/21/17 07:41 50 MG Multivitamins (Multivitamin Tab) 1 tab QAM PO 01/21/17 09:00 02/20/17 08:59 01/21/17 07:42 1 TAB Diphenhydramine HCl (Benadryl Cap) 50 mg HS PO 01/20/17 21:00 02/19/17 20:59 01/20/17 20:50 50 MG Mirtazapine (Remeron Tab) 15 mg HS PO 01/20/17 21:00 02/19/17 20:59 01/20/17 20:50 15 MG Vancomycin HCl 1250 mg/Sodium Chloride 275 ml @ 125 mls/hr DAILY@0600 IV 01/21/17 06:00 01/28/17 05:59 01/21/17 06:13 125 MLS/HR Piperacillin Sod/ Tazobactam Sod 3.375 gm/Dextrose 115 ml @ 28.75 mls/ hr Q8H IV 01/21/17 00:00 01/28/17 00:00 01/21/17 07:43 28.75 MLS/HR Nystatin (Mycostatin Susp) 5 ml QID PO 01/20/17 21:00 01/30/17 20:59 01/21/17 07:43 5 ML Acetaminophen (Tylenol Tab) 1,000 mg BID PO 01/20/17 21:00 02/19/17 20:59 01/21/17 07:42 1,000 MG Albuterol/ Ipratropium (Duoneb) 3 ml QIDR INH 01/20/17 20:00 02/19/17 19:59 01/21/17 07:00 3 ML Hydralazine HCl (HydrALAZINE INJ) 10 mg Q6 PRN IV. 01/20/17 19:45 02/19/17 19:44 Piperacillin Sod/ Tazobactam Sod (Consult) 1 ea UD PRN N/A 01/20/17 20:30 02/19/17 20:29 Vancomycin HCl (Consult) 1 ea UD PRN N/A 01/20/17 20:45 02/19/17 20:44 Review of Systems Constitutional: + fatigue, No fever, No chills Respiratory: + cough, + shortness of breath, No sputum Cardiovascular: No chest pain Abdomen: No pain, No nausea Musculoskeletal: No joint pain, No muscle pain Genitourinary - Male: No dysuria, No urinary urgency Hematologic / Lymphatic: No abnormal bleeding/bruising Physical Exam Date Time Temp Pulse Resp B/P (MAP) Pulse Ox O2 Delivery O2 Flow Rate FiO2 01/21/17 07:58 36.3 91 24 183/84 (117) 100 Room Air 01/21/17 06:59 89 16 96 Room Air 01/21/17 04:00 98 Room Air 01/21/17 03:35 36.8 82 20 158/83 (108) 98 Room Air 01/21/17 00:08 36.4 74 18 124/67 (86) 95 Room Air 01/21/17 00:01 95 Room Air 01/20/17 20:18 112 16 95 Room Air 01/20/17 19:45 97 Room Air 01/20/17 19:45 115 24 153/65 (94) 97 Room Air 01/20/17 19:24 110 37 99 01/20/17 19:21 156/64 01/20/17 19:21 156/64 01/20/17 19:09 111 28 98 01/20/17 19:09 111 28 98 01/20/17 18:34 109 01/20/17 18:25 99 Room Air 01/20/17 17:18 36.7 110 20 171/80 100 Room Air General Appearance: + mild distress, + pertinent finding (chronically ill- appearing) ENT: pharynx normal Respiratory/Chest: normal breath sounds (on left), + decreased breath sounds ( on right) Cardiovascular: regular rate, rhythm Abdomen/GI: non tender, soft Neurologic/Psych: alert, oriented x 3 Laboratory Results Last 24 Hours Test 01/20/17 18:20 01/21/17 06:43 Lactic Acid Level 1.8 mmol/L White Blood Count 27.16 K/uL Red Blood Count 3.24 M/uL Hemoglobin 8.8 g/dL Hematocrit 28.0 % Mean Corpuscular Volume 86.4 fL Mean Corpuscular Hemoglobin 27.2 pg Mean Corpuscular Hemoglobin Concent 31.4 g/dl Platelet Count 209 K/uL Mean Platelet Volume 9.2 fL Neutrophils (%) (Auto) 90.6 % Lymphocytes (%) (Auto) 3.3 % Monocytes (%) (Auto) 5.4 % Eosinophils (%) (Auto) 0.0 % Basophils (%) (Auto) 0.1 % Neutrophils # (Auto) 24.61 K/uL Lymphocytes # (Auto) 0.90 K/uL Monocytes # (Auto) 1.47 K/uL Eosinophils # (Auto) 0.01 K/uL Basophils # (Auto) 0.02 K/uL RDW Standard Deviation 53.2 fL RDW Coefficient of Variation 17.1 % Immature Granulocyte % (Auto) 0.6 % Immature Granulocyte # (Auto) 0.15 K/uL Poikilocytosis PRESENT Anisocytosis PRESENT Sodium Level 136 mmol/L Potassium Level 4.7 mmol/L Chloride Level 108 mmol/L Carbon Dioxide Level 21 mmol/L Anion Gap 7.0 mmol/L Blood Urea Nitrogen 67 mg/dl Creatinine 1.89 mg/dl Est Creatinine Clear Calc Drug Dose 39.0 ml/min Estimated GFR () 41.0 Estimated GFR (Non- 35.4 BUN/Creatinine Ratio 35.5 Random Glucose 111 mg/dl Calcium Level 7.7 mg/dl Magnesium Level 2.5 mg/dl Assessment & Plan Mr. Mello has a new, large right pleural effusion, along with some possible groundglass vs tree-in-bud opacities in the contralateral lung. The differential here includes disease progression, infection, or inflammatory pneumonitis/pleuritis secondary to the atezolizumab. His leukocytosis has actually been chronic and I suspect may be related to his disease. He has had a very aggressive course, so I would not be surprised if this is disease progression. CT surgery have been consulted and I think a thoracentesis would be helpful here. If the effusion is malignant, that would argue strongly for disease progression. Empiric antibiotics for pneumonia are also reasonable. If he is not clinically improving after a few days, we could consider a trial of steroids for possible immune pneumonitis.
[2017-01-21] MEDS ORDERED: NURSING VERBAL MED ORDER ONE (11:15)
[2017-01-21] MEDS ORDERED: CARBAMIDE PEROXIDE 6.5% 15 ML BTL OT PRN (11:45)
[2017-01-21 12:55] LABS: ISTAT ARTERIAL BLOOD GAS HCO3 20 meq/L (19-24); ISTAT ARTERIAL BLOOD GAS PCO2 32 mmHg (35-46); ISTAT ARTERIAL BLOOD GAS PO2 84 mmHg (80-95); ISTAT ARTERIAL BLOOD GAS pH 7.41 (7.35-7.45); ISTAT CARBON DIOXIDE 21 mEq/l (24-31); ISTAT DELIVERY SYSTEM Room Air; ISTAT SITE R Radial
[2017-01-21] MEDS: NEOMYCIN/POLYMYX/HYDROCORT OT SOLN 10 ML BTL OT SCH ×2 (13:16→21:09)
--- NOTE | 2017-01-21 13:32 | OPERATIVE REPORT ---
DATE OF OPERATION: 01/21/2017 DATE OF PROCEDURE: 01/21/2017 PROCEDURE: Right thoracentesis under ultrasound guidance. SURGEON: Dr. Montelongo. ANESTHESIA: Local. SPECIFICS OF PROCEDURE: At the patient's bedside, an ultrasound was used to see a large amount of fluid on the right. I marked an area about the seventh interspace in the posterior midclavicular line. He was prepped and draped in the usual sterile fashion. After appropriate timeout, a skin wheal was raised with 25 gauge needle, 1% Xylocaine. A large bore needle was used to anesthetize the deeper subcutaneous tissues and pleura. There were free flowing fluid. A guidewire was inserted through the needle and needle removed. This was dilated up gently and then the dilator was removed and then a triple lumen catheter was put in at 17 cm and the guidewire removed. 1250 mL of serous yellow fluid was drained. He had very little in the way of reexpansion pain or coughing, but we really could not get any more fluid out. A chest x-ray is pending at this time. I did remove the catheter and he had no bleeding. Antimicrobials dressing was placed. He tolerated it well. I attest to the content of the Intraoperative Record and any orders documented therein. Any exception s are noted below.
--- NOTE | 2017-01-21 13:40 | DIAGNOSTIC IMAGING REPORT ---
CHEST ONE VIEW PORTABLE HISTORY: 71 years-old Male S/P Thoracentesis right-sided pleural effusion. Status post thoracentesis COMPARISON: Chest radiograph and chest CT 01/20/2017 TECHNIQUE: Portable upright AP view of the chest FINDINGS: There is decreased size of the right pleural effusion with only mild amount of right sided pleural fluid noted. No postprocedural pneumothorax. Subsegmental right basilar opacities suggest atelectasis. Mild right hemidiaphragmatic elevation. Cardiac silhouette is upper limits of normal. Atherosclerosis of the aorta. Left subclavian [id number] catheter is seen with distal tip in the region of the SVC. Degenerative changes are seen within the spine and shoulders. IMPRESSION: Decreased size of right-sided pleural effusion status post thoracentesis. No postprocedural pneumothorax. The above report was generated using voice recognition software. It may contain grammatical, syntax or spelling errors. Electronically signed by: Ludwin Lynne M.D. 01/21/2017 1:39 PM Dictated Date/Time: 01/21/2017 1:36 PM
--- NOTE | 2017-01-21 13:45 | SURGICAL CONSULTATION ---
DATE OF CONSULTATION: 01/21/2017 DATE OF CONSULTATION: 01/21/2017 REASON FOR CONSULTATION: Management of right pleural effusion. HISTORY OF PRESENT ILLNESS: A 71-year-old man with metastatic urothelial carcinoma of the renal pelvis, who has been treated from medical oncology standpoint at [facility] and is on a PD-L1 inhibitor currently. He had increasing shortness of breath and was seen by Dr. Groves and was admitted with a large right pleural effusion. He also has evidence of some tree-in-bud opacities in the left lower lobe which are worrisome. As he had a high white count he was admitted and I was asked to see him about this pleural effusion. The patient is on room air and states he has "no problems." However, after discussing this in more depth with patient and his , they both state that he had become very weak and much more short of breath. PAST MEDICAL HISTORY: 1. Metastatic urothelial carcinoma in the renal pelvis. 2. Acute renal failure. 3. Anemia. 4. Leukocytosis. 5. Urinary tract infection. PAST SURGICAL HISTORY: 1. Status post left meniscus repair. 2. Ureteroscopy with extraction of right renal nephrolithiasis. MEDICATIONS: 1. Cipro. 2. Clonidine. 3. Potassium. 4. Remeron. 5. Lopressor. 6. Benadryl. 7. Lisinopril. ALLERGIES: No known drug allergies. SOCIAL HISTORY: The patient is originally from [place]. He and his are both from [place]. He has 3 children who live in the area and 1 grandchild. He has a support system. He smoked in the past. He is retired. FAMILY MEDICAL HISTORY: Interesting enough there is a history of kidney cancer in his family as well as breast cancer. His children and grandchild are healthy. REVIEW OF SYSTEMS: The patient had some chills and is quite fatigued but has no fevers or night sweats. He denies any visual or auditory symptoms. He has had no wound breakdown. He denies palpitations or chest pain. He has been anorexic, but denies nausea or vomiting or other GI symptoms. He has been quite short of breath with exertion. He has had a cough, but really had no purulent sputum production. He has had bilateral lower extremity edema. He has no acute neurologic deficits but he does have evidence of an encephalopathy. He does have a right nephrostomy tube site which continues to drain. PHYSICAL EXAMINATION: GENERAL: This is a cachectic-appearing male who appears older than his stated age of 71. He is sitting on the side of the bed. He appeared to be lucid. HEAD, EYES, EARS, NOSE, AND THROAT: His sclerae are pale and anicteric. He wears glasses. He has no nasolabial flattening. His oral mucosa is a bit dry. He has some evidence of oral candidiasis with some white areas in his posterior pharynx and on his tongue. He has no open wounds. NECK: Supple. He does not have any tracheal deviation, neck vein distention or thyromegaly. I detect no supraclavicular, cervical or axillary adenopathy. He has no carotid bruits. He has markedly decreased breath sounds on the right. His left lung is clear. He has a regular rate and rhythm of his heart at about 100 beats per minute. ABDOMEN: A bit protuberant, soft, nontender. He does have some muscle wasting in his upper or lower extremities. He has 2-3+ edema of his lower legs. NEUROLOGIC: He is awake, alert and appeared to be oriented. We had a long conversation at the bedside. He has no obvious focal deficits. Cranial nerves II-XII are intact. DATA: I reviewed CT scan. He has an extremely large pleural effusion on the right which appears to be homogenous. ASSESSMENT AND PLAN: Metastatic urothelial carcinoma with a right pleural effusion. I assume this is malignant. I am going to perform a diagnostic and therapeutic thoracentesis to ascertain the etiology and also to see how he responds. If he responds well and feels better after draining this fluid we will consider an indwelling pleural catheter.
[2017-01-21 14:07] LABS: PLEURAL FLUID TOTAL PROTEIN 4.4 g/dl
[2017-01-21 14:17] LABS: PLEURAL FLUID APPEARANCE CLEAR; PLEURAL FLUID COLOR PALE YELLOW; PLEURAL FLUID MONONUC RELAT 61.6 %; PLEURAL FLUID POLYNUC 38.4 %; PLEURAL FLUID SOURCE RIGHT LUNG; PLEURAL FLUID WBC (A) 441 /uL
[2017-01-21] MEDS: HYDROmorphone HCL 2 MG TAB PO PRN (15:57)
[2017-01-21] MEDS: MIRTAZAPINE TAB 15 MG TAB PO SCH (21:08)
[2017-01-22] VITALS (10 sets, daily range): BP systolic 122–166; BP diastolic 65–87; PULSE 76–109; TEMP 36.3–37.1; O2SAT 92–98
[2017-01-22] MEDS: PIPERACILL/TAZOBAC IV 3.375 GM in DEXTROSE 5% 100ML 100 ML IV SCH ×3 (00:04→15:58)
[2017-01-22] MEDS: HYDROmorphone HCL 2 MG TAB PO PRN (02:02)
[2017-01-22] MEDS: VANCOMYCIN INJ 1,250 MG in SODIUM CHLORIDE 0.9% 250ML 250 ML IV SCH (06:00)
[2017-01-22 06:06] LABS: BUN/CREATININE RATIO 29.9 (10-20); CALCIUM 7.9 mg/dl (8.5-10.1); CREATININE 2.02 mg/dl (0.60-1.40); MAGNESIUM 2.5 mg/dl (1.8-2.4); POTASSIUM 5.1 mmol/L (3.5-5.1)
[2017-01-22 06:19] LABS: HEMATOCRIT 31.6 % (42-52); MEAN CORPUSCULAR HEMOGLOBIN 27.6 pg (25-34); MEAN CORPUSCULAR HGB CONC 31.3 g/dl (32-36); MEAN PLATELET VOLUME 10.1 fL (7.4-10.4); PLATELET COUNT 288 K/uL (130-400); RED BLOOD COUNT 3.59 M/uL (4.7-6.1)
[2017-01-22 06:21] LABS: BASO % 0.1 %; BASO ABS # 0.02 K/uL (0-0.2); COMPLETE YES; ECHINOCYTES 1+; EOS % 0.1 %; IG% 0.7 %; LYMPH % 3.6 %; NEUT % 89.5 %
[2017-01-22] MEDS: ALBUT/IPRATROP 3MG/0.5MG NEB 3 ML VIAL INH SCH ×4 (07:18→20:45)
--- NOTE | 2017-01-22 08:09 | DIAGNOSTIC IMAGING REPORT ---
CHEST ONE VIEW PORTABLE CLINICAL HISTORY: thoracentesis post procedure COMPARISON STUDY: 01/21/2017 FINDINGS: No postprocedural pneumothorax is identified. Trace pleural fluid right base persists. Left lung is considered clear. Central catheter in the right atrium. IMPRESSION: Unchanged exam. No evidence for postprocedural pneumothorax. The above report was generated using voice recognition software. It may contain grammatical, syntax or spelling errors. Electronically signed by: Rigoberto Orozco M.D. 01/22/2017 8:08 AM Dictated Date/Time: 01/22/2017 8:07 AM
[2017-01-22] MEDS: CLONIDINE HCL 0.1 MG TAB PO SCH ×2 (08:24→20:25)
[2017-01-22] MEDS: MULTIVITAMIN TAB PO SCH (08:24)
[2017-01-22] MEDS: METOPROLOL TARTRATE 50 MG TAB PO SCH ×2 (08:25→20:25)
[2017-01-22] MEDS: NYSTATIN SUSP 500,000 U/5 ML UDC PO SCH ×4 (08:26→20:25)
[2017-01-22] MEDS: NEOMYCIN/POLYMYX/HYDROCORT OT SOLN 10 ML BTL OT SCH ×3 (08:30→20:24)
[2017-01-22] MEDS: ACETAMINOPHEN 500 MG TAB PO SCH ×2 (08:34→20:26)
--- NOTE | 2017-01-22 09:00 | Hematology/Oncology Prog Note ---
Hematology/Onc Progress Note Date of Service Jan 22, 2017. Diagnoses Metastatic urothelial carcinoma Pleural effusion Leukocytosis Medications Medications Administered Medications (Trade) Dose Ordered Sig/Cb Route Start Time Stop Time Status Last Admin Dose Admin Sodium Chloride 1,000 ml @ 999 mls/hr Q1H1M STAT IV 01/20/17 17:30 01/20/17 18:30 DC 01/20/17 18:52 999 MLS/HR Piperacillin Sod/ Tazobactam Sod (Zosyn Iv) 4.5 gm NOW STAT IV 01/20/17 17:30 01/20/17 17:36 DC 01/20/17 18:52 4.5 GM Vancomycin HCl (Vancomycin 1gm/ 270ml Nss) 1 gm NOW STAT IV 01/20/17 17:30 01/20/17 17:36 DC 01/20/17 20:06 1 GM Albuterol/ Ipratropium (Duoneb) 3 ml NOW STAT INH 01/20/17 17:30 01/20/17 17:36 DC 01/20/17 18:52 3 ML Sodium Chloride 1,000 ml @ 75 mls/hr [id number] IV 01/20/17 18:40 01/21/17 15:00 DC 01/21/17 07:44 75 MLS/HR Acetaminophen (Tylenol Tab) 650 mg Q6H PRN PO 01/20/17 18:45 02/19/17 18:44 01/21/17 14:14 650 MG Clonidine HCl (Catapres Tab) 0.1 mg BID PO 01/20/17 21:00 02/19/17 20:59 01/22/17 08:24 0.1 MG Hydromorphone HCl (Dilaudid Tab) 4 mg Q6 PRN PO 01/20/17 18:45 02/03/17 18:44 01/22/17 02:02 4 MG Metoprolol Tartrate (Lopressor Tab) 50 mg BID PO 01/20/17 21:00 02/19/17 20:59 01/22/17 08:25 50 MG Multivitamins (Multivitamin Tab) 1 tab QAM PO 01/21/17 09:00 02/20/17 08:59 01/22/17 08:24 1 TAB Diphenhydramine HCl (Benadryl Cap) 50 mg HS PO 01/20/17 21:00 02/19/17 20:59 01/21/17 21:07 50 MG Mirtazapine (Remeron Tab) 15 mg HS PO 01/20/17 21:00 02/19/17 20:59 01/21/17 21:08 15 MG Vancomycin HCl 1250 mg/Sodium Chloride 275 ml @ 125 mls/hr DAILY@0600 IV 01/21/17 06:00 01/28/17 05:59 01/22/17 06:00 125 MLS/HR Piperacillin Sod/ Tazobactam Sod 3.375 gm/Dextrose 115 ml @ 28.75 mls/ hr Q8H IV 01/21/17 00:00 01/28/17 00:00 01/22/17 08:21 28.75 MLS/HR Nystatin (Mycostatin Susp) 5 ml QID PO 01/20/17 21:00 01/30/17 20:59 01/22/17 08:26 5 ML Acetaminophen (Tylenol Tab) 1,000 mg BID PO 01/20/17 21:00 02/19/17 20:59 01/22/17 08:34 1,000 MG Albuterol/ Ipratropium (Duoneb) 3 ml QIDR INH 01/20/17 20:00 02/19/17 19:59 01/22/17 07:18 3 ML Neomycin/ Polymyxin/ Hydrocortisone (Cortisporin Otic Soln) 2 drops TID OT 01/21/17 14:00 02/20/17 13:59 01/22/17 08:30 2 DROPS Subjective Mr. Mello says he is more comfortable and breathing easier today, but he still appears to be working hard to breathe. He has no pain or fevers. While I was in the room, his nurse changed the dressing over his right percutaneous nephrostomy and it had purulent drainage. Review of Systems: Constitutional: + fatigue, No fever, No chills Respiratory: + shortness of breath, No cough, No sputum Cardiovascular: No chest pain Abdomen: No pain, No nausea, No vomiting Musculoskeletal: No joint pain, No muscle pain Male : No hematuria Heme: No abnormal bleeding/bruising Vital Signs Vital Signs Past 12 Hours Date Time Temp Pulse Resp B/P (MAP) Pulse Ox O2 Delivery O2 Flow Rate FiO2 01/22/17 07:21 90 15 92 Room Air 01/22/17 07:00 37.1 94 16 157/81 (106) 94 Room Air 01/22/17 04:00 Room Air 01/22/17 03:00 36.3 86 20 162/83 (109) 96 Room Air 01/22/17 00:00 Room Air 01/21/17 23:35 36.4 77 20 133/74 (93) 92 Room Air Physical Exam Constitutional: Level of Distress: NAD, chronically ill Psychiatric: Mental Status: active & alert Orientation: oriented except where noted ENMT: pharynx normal Lungs: Respiratory Effort: use of accessory muscles Auscuitation: decreased breath sounds (in lower almeida on the right) Cardiovascular: Heart Auscultation: RRR Abdomen: Inspection & Palpation: soft, no tenderness, guarding & rebound Musculoskeletal: normal strength (5/5 throughout) Extremities: no edema Laboratory Last 24 Hours Test 01/21/17 12:42 01/22/17 05:17 Blood Gas Sample Site R Radial Bedside Blood Gas pH (LAB) 7.41 Bedside Blood Gas pCO2 (LAB) 32 mmHg Bedside Blood Gas pO2 (LAB) 84 mmHg Bedside Blood Gas HCO3 (LAB) 20 meq/L Bedside Blood Gas Total CO2 21 mEq/l Bedside Blood Gas Base Excess (LAB) -4.0 meq/L Bedside Blood Gas O2 Saturation 96.0 % Timmy Test NA Oxygen Delivery Device Room Air White Blood Count 33.20 K/uL Red Blood Count 3.59 M/uL Hemoglobin 9.9 g/dL Hematocrit 31.6 % Mean Corpuscular Volume 88.0 fL Mean Corpuscular Hemoglobin 27.6 pg Mean Corpuscular Hemoglobin Concent 31.3 g/dl Platelet Count 288 K/uL Mean Platelet Volume 10.1 fL Neutrophils (%) (Auto) 89.5 % Lymphocytes (%) (Auto) 3.6 % Monocytes (%) (Auto) 6.0 % Eosinophils (%) (Auto) 0.1 % Basophils (%) (Auto) 0.1 % Neutrophils # (Auto) 29.73 K/uL Lymphocytes # (Auto) 1.20 K/uL Monocytes # (Auto) 2.00 K/uL Eosinophils # (Auto) 0.03 K/uL Basophils # (Auto) 0.02 K/uL RDW Standard Deviation 54.9 fL RDW Coefficient of Variation 17.4 % Immature Granulocyte % (Auto) 0.7 % Immature Granulocyte # (Auto) 0.22 K/uL Echinocytes 1+ Sodium Level 138 mmol/L Potassium Level 5.1 mmol/L Chloride Level 109 mmol/L Carbon Dioxide Level 23 mmol/L Anion Gap 6.0 mmol/L Blood Urea Nitrogen 60 mg/dl Creatinine 2.02 mg/dl Est Creatinine Clear Calc Drug Dose 36.4 ml/min Estimated GFR () 37.9 Estimated GFR (Non- 32.7 BUN/Creatinine Ratio 29.9 Random Glucose 95 mg/dl Calcium Level 7.9 mg/dl Magnesium Level 2.5 mg/dl Total Bilirubin 1.3 mg/dl Direct Bilirubin 1.0 mg/dl Aspartate Amino Transf (AST/SGOT) 44 U/L Alanine Aminotransferase (ALT/SGPT) 47 U/L Alkaline Phosphatase 321 U/L Lactate Dehydrogenase 473 U/L Total Protein 7.0 gm/dl Albumin 1.7 gm/dl Assessment & Plan Dr. Montelongo drained his effusion yesterday. The pH is suggestive of a malignant effusion, but we will need to wait for cytology to confirm. In the meantime, he feels better, though he has visibly increased work of breathing. His WBCs are also rising and he has purulent drainage from his right PCN. This was cultured 2 days ago and is growing GPCs, which may be a skin contaminant but may also represent an infection. He is on broad spectrum antibiotics empirically. If his breathing does not improve, I would consider another CT to rule out evolution of inflammatory changes consistent with pneumonitis.
--- NOTE | 2017-01-22 12:23 | Hospitalist Progress Note ---
Hospitalist Progress Note Date of Service Jan 22, 2017. Subjective Pt evaluation today including: conversation w/ patient, conversation w/ family , physical exam, chart review, lab review Pain: Mild, generalized PO Intake: Fair Voiding: no voiding problems The patient was seen and examined this morning. Pt reports breathing is better today, but he feels very tired although slept ok overnight. Pts is present at bedside and notes he is still short of breath with minimal exertion. Pt initially denies feeling short of breath with exertion, but then agrees. His oxygen has been slightly lower overnight, 90% but on RA. He denies any cough or mucous production. Pain is moderate where thoracentesis was performed. He denies difficulty with deep breaths. He tolerated breakfast this morning. ROS: 6 point ROS reviewed and otherwise negative. Objective Vital Signs Date Time Temp Pulse Resp B/P (MAP) Pulse Ox O2 Delivery O2 Flow Rate FiO2 01/22/17 11:37 36.4 78 20 123/65 (84) 96 Room Air 01/22/17 11:10 96 17 95 Room Air 01/22/17 08:00 92 Room Air 01/22/17 07:21 90 15 92 Room Air 01/22/17 07:00 37.1 94 16 157/81 (106) 94 Room Air 01/22/17 04:00 Room Air 01/22/17 03:00 36.3 86 20 162/83 (109) 96 Room Air 01/22/17 00:00 Room Air 01/21/17 23:35 36.4 77 20 133/74 (93) 92 Room Air 01/21/17 20:00 Room Air 01/21/17 19:06 103 16 96 Room Air 01/21/17 18:45 36.9 106 24 143/73 (96) 92 Room Air 01/21/17 16:07 149/79 (102) 01/21/17 16:00 Room Air 01/21/17 15:53 74 16 97 Room Air 01/21/17 15:13 36.4 98 24 166/81 (109) 99 Room Air 177/84 (115) 01/21/17 12:08 36.4 73 16 132/67 (88) 97 Room Air Physical Exam Notes: General Appearance: WD/WN, no apparent distress, +fatigued Eyes: normal inspection, PERRL, EOMI ENT: hearing grossly normal, pharynx normal, + pertinent finding (minimal white plaque on tongue) Neck: supple, no JVD Respiratory/Chest: + pertinent finding (on RA with O2 sats at 90%, good breath sounds in the right lobe throughout, + wet cough, nonproductive. No wheeze or rales.) Cardiovascular: regular rate, rhythm, no murmur Abdomen: normal bowel sounds, non tender, soft, ( +R flank with healing incision s/p nephrostomy tube without surrounding erythema or drainage, dressing C/D/I) Extremities: + pertinent finding (2+ pitting edema in the LLE, 3+ edema in the RLE) Neurologic/Psychiatric: alert, normal mood/affect, oriented x 3 Skin: normal color, warm/dry Laboratory Results Last 24 Hours Test 01/21/17 12:42 01/22/17 05:17 Blood Gas Sample Site R Radial Bedside Blood Gas pH (LAB) 7.41 Bedside Blood Gas pCO2 (LAB) 32 mmHg Bedside Blood Gas pO2 (LAB) 84 mmHg Bedside Blood Gas HCO3 (LAB) 20 meq/L Bedside Blood Gas Total CO2 21 mEq/l Bedside Blood Gas Base Excess (LAB) -4.0 meq/L Bedside Blood Gas O2 Saturation 96.0 % Timmy Test NA Oxygen Delivery Device Room Air White Blood Count 33.20 K/uL Red Blood Count 3.59 M/uL Hemoglobin 9.9 g/dL Hematocrit 31.6 % Mean Corpuscular Volume 88.0 fL Mean Corpuscular Hemoglobin 27.6 pg Mean Corpuscular Hemoglobin Concent 31.3 g/dl Platelet Count 288 K/uL Mean Platelet Volume 10.1 fL Neutrophils (%) (Auto) 89.5 % Lymphocytes (%) (Auto) 3.6 % Monocytes (%) (Auto) 6.0 % Eosinophils (%) (Auto) 0.1 % Basophils (%) (Auto) 0.1 % Neutrophils # (Auto) 29.73 K/uL Lymphocytes # (Auto) 1.20 K/uL Monocytes # (Auto) 2.00 K/uL Eosinophils # (Auto) 0.03 K/uL Basophils # (Auto) 0.02 K/uL RDW Standard Deviation 54.9 fL RDW Coefficient of Variation 17.4 % Immature Granulocyte % (Auto) 0.7 % Immature Granulocyte # (Auto) 0.22 K/uL Echinocytes 1+ Sodium Level 138 mmol/L Potassium Level 5.1 mmol/L Chloride Level 109 mmol/L Carbon Dioxide Level 23 mmol/L Anion Gap 6.0 mmol/L Blood Urea Nitrogen 60 mg/dl Creatinine 2.02 mg/dl Est Creatinine Clear Calc Drug Dose 36.4 ml/min Estimated GFR () 37.9 Estimated GFR (Non- 32.7 BUN/Creatinine Ratio 29.9 Random Glucose 95 mg/dl Calcium Level 7.9 mg/dl Magnesium Level 2.5 mg/dl Total Bilirubin 1.3 mg/dl Direct Bilirubin 1.0 mg/dl Aspartate Amino Transf (AST/SGOT) 44 U/L Alanine Aminotransferase (ALT/SGPT) 47 U/L Alkaline Phosphatase 321 U/L Lactate Dehydrogenase 473 U/L Total Protein 7.0 gm/dl Albumin 1.7 gm/dl Assessment and Plan Mr. Mello is a 71 y/o male with PMHx of Metastatic Urothelial CA to Liver, HTN, Chronic Anemia, and Prolonged QT Syndrome who presents to the ED with referral from Dr. Groves for generalized illness. Overnight events included confusion with administration of dilaudid and benadryl for insomnia and pain. - confusion resolved at this time - Will reduce dilaudid to 2 mg PO Q4H for pain. Possible Sepsis from Pulmonary vs Urinary vs Previous Nephrostomy Tube Immunocompromised - CT chest with large R sided pleural effusion and Groundglass and nodular tree- in-bud opacities within the basal left lower lobe suggest infectious or inflammatory bronchiolitis. - Labs prior to ED arrival reveal leukocytosis which continues to increase. - Will obtain CT chest and abdomen/pelvis today, noncontrast to asses for pneumonitis and possible abdominal etiology with R nephrostomy tube drainage and worsening leukocytosis. - blood culture NGTD prelim and urine culture Negative - culture from previous nephrostomy tube growing enterococcus faecalis, and achromobacter xylosoxidans sensitive to vanc and zosyn - Nephrostomy tube removed x 2-3 months ago - was placed initially before the diagnosis of CA given - Zosyn and Vancomycin day #3 - Duonebs Large R Pleural Effusion Exudative - Malignant vs Infection - Thoracic surgery on board- thoracentesis done 01/11 with 1250 mL serosanginous fluid out, await cytology and culture results - No previous history of pleural effusions or congestive failure- CXR from mid Oct reviewed when mediport was placed and there was no indication of acute findings at that time. 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: - Cr worse at 2.02 today even after fluids running yesterday, now stopped due to edema as above - CTs completed without contrast - baseline appears to be ~1.2 - Hold Lisinopril and other nephrotoxic agents - continue to monitor with BMP Oral Thrush: - Nystatin swish and spit Metastatic Urethelial CA to Liver, possibly left 6th rib with lucency seen on imaging - Chemotherapy with Tecentriq last tx on 01/08 with next scheduled for 01/29 - Has required intermittent blood transfusions - last on 01/07 - On suppressive Cipro 500 mg BID VESSEL [employer]BER - HOLD - Tylenol 1000 mg BID; Dilaudid 4 mg PRN (patient reports hasn't needed this as Tylenol has helped) - Consult Oncology - appreciate recs HTN: - Clonidine 0.1 mg BID, Lopressor 50 mg BID - Hold Lisinopril and cover with Hydralazine PRN Insomnia: - Benadryl 50 mg HS and Remeron 15 mg HS - Avoid Ambien and Ativan as patient got delirious on this medication DVT Prophylaxis: SCDs Code Status: FULL RESUSCITATION Disposition: - Lives at home with spouse, does not utilize assistive devices, does not anticipate any home needs - PT/OT
[2017-01-22] MEDS ORDERED: HYDROmorphone HCL 2 MG TAB PO PRN (12:30)
--- NOTE | 2017-01-22 13:05 | DIAGNOSTIC IMAGING REPORT ---
(CHEST) THORAX WITHOUT CT DOSE: HISTORY: Chest pain leukocytosis, s/p thoracentesis TECHNIQUE: Multiaxial CT images of the chest were performed without contrast. A dose lowering technique was utilized adhering to the principles of ALARA. COMPARISON: 01/20/2017 FINDINGS: Decrease in volume of a right effusion postthoracentesis. No evidence for a postprocedural pneumothorax. Central catheter remains in the right atrium. Stable atherosclerotic change thoracic aorta. No significant mediastinal or hilar adenopathy within limitations of an unenhanced scan. Mild/moderate right basilar atelectatic change improved from the prior study. Minimal atelectatic change left base. Hypodensities within the liver suggesting metastatic change are again noted. Trace amount of perihepatic ascites is present. Infiltrative and soft tissue prominence right lateral chest wall lateral to the level of the liver in part per history due to a nephrostomy catheter placement. The lucencies of the osseous structures at the level of the ribs are again noted and appear unchanged. IMPRESSION: 1. Decrease in volume of a right-sided effusion by 50% post thoracentesis. 2. No postprocedural pneumothorax. 3. Minimal interstitial prominence left lung base stable compared to the prior exam. 4. Probable diffuse hepatic metastatic disease. 5. Soft tissue and right flank soft tissue prominence lateral to the level of the liver stable compared to the prior exam. 6. Rib lesions suggesting developing metastatic change unaltered. The above report was generated using voice recognition software. It may contain grammatical, syntax or spelling errors. Electronically signed by: Rigoberto Orozco M.D. 01/22/2017 1:03 PM Dictated Date/Time: 01/22/2017 12:55 PM
--- NOTE | 2017-01-22 13:19 | DIAGNOSTIC IMAGING REPORT ---
ABD/PELVIS NO IV OR ORAL CONT CLINICAL HISTORY: 71 years-old Male presenting with leukocytosis, h/o urothelial CA, nephrostomy tube. TECHNIQUE: Multidetector CT of the abdomen and pelvis was performed without the use of intravenous contrast. IV contrast: None. A dose lowering technique was used consistent with the principles of ALARA (as low as reasonably achievable). COMPARISON: 08/07/2016. CT DOSE (mGy.cm): The estimated cumulative dose is 1065.49 mGy.cm. FINDINGS: Peanut Salter topogram: Elevation of the right hemidiaphragm. Lung bases: Consolidation at the dependent portions of the right lower lobe with an adjacent moderate right pleural effusion. Normal heart size. Partially visualized tip of a left subclavian Mediport, which terminates in the region of the superior cavoatrial junction. Left lung demonstrates minimal dependent groundglass opacities. No left pleural effusion. Liver: Normal morphology, however, multiple ill-defined hypodense lesions noted primarily in the right hepatic lobe. These have suspicious morphology. Only one small lesion was evident on prior CT from July. Biliary: No gross biliary ductal dilatation allowing for noncontrast technique. Mild gallbladder wall thickening without gallbladder distention, nonspecific. Pancreas: Mild parenchymal atrophy. Spleen: Normal noncontrast appearance. Adrenal glands: Nonspecific nodular thickening of the adrenal glands, left greater than right. Kidneys and ureters: There has been interval removal of the percutaneous right nephrostomy tube. A soft tissue and fluid density tracking is evident from the right flank to the kidney. The right kidney is expanded with low-attenuation material and central gas. The right kidney is enlarged since the prior study. No significant infiltration of the perinephric fat. Urothelial thickening and mild dilatation of the proximal right ureter. The left kidney demonstrates an exophytic well-defined hypodensity likely cyst. No hydronephrosis. Bladder: Mild circumferential bladder wall thickening. Pelvic organs: Prostate and seminal vesicles normal. Bowel: Diverticulosis of the sigmoid colon. Moderate stool burden in the right colon. No colonic wall thickening. No bowel obstruction. Peritoneal cavity: Small amount of abdominal pelvic ascites including perihepatic fluid at the inferior right lobe. Trace retroperitoneal fluid also present. No free intraperitoneal gas. Lymph nodes: Multiple prominent subcentimeter lymph nodes in the portacaval region. These are poorly assessed in the absence of intravenous contrast although the largest portacaval lymph node is enlarged since the prior exam measuring over 10 mm in short axis. Vasculature: Noncontrast plaque. Abdominal wall: Diffuse body wall edema. Musculoskeletal: Degenerative changes of the spine. IMPRESSION: 1. Interval development of multiple suspicious hepatic lesions concerning for progression of metastatic disease. 2. Status post removal of the right percutaneous nephrostomy tube with interval enlargement of the right kidney, expanded by abnormal low density material. This could be compatible with the known urothelial carcinoma. Superimposed infection cannot be excluded. The focus of gas within this material is presumed to be secondary to recent removal of the percutaneous approximately tube. If this is more remote, gas would raise concern for infection/emphysematous nephritis. Correlate clinically. 3. Interval enlargement of portacaval lymphadenopathy. Metastatic disease cannot be excluded, although this may be reactive. 4. Interval development of right lower lobe consolidation, likely extensive atelectasis, with moderate right pleural effusion. 5. Mild circumferential bladder wall thickening could suggest cystitis or chronic bladder obstruction. Correlate with urinalysis. The report will be called/faxed according to standard departmental protocol. Electronically signed by: Ayaz Wallace M.D. 01/22/2017 1:17 PM Dictated Date/Time: 01/22/2017 12:55 PM
--- NOTE | 2017-01-22 15:06 | SURGERY PROGRESS NOTE ---
DATE: 01/22/2017 SUBJECTIVE: Mr. Mello was seen today. We drained him for about 1250 mL of fluid yesterday. This does not appear to be malignant based on early cytology results. He has not really been helped by this. He is still very weak. At this point, I would like to check a chest x-ray in a week or so to see if he accumulates any other fluid. The CT scan showed he did have some fluid left in the right chest, but it had improved. This patient has widely metastatic disease. I will follow along to see if perhaps a PleurX catheter could be inserted, if he needed, but at this point I would hold off.
[2017-01-22] MEDS ORDERED: ALBUT/IPRATROP 3MG/0.5MG NEB 3 ML VIAL INH PRN ×2 (16:00→19:45)
[2017-01-22] MEDS ORDERED: NURSING VERBAL MED ORDER ONE (19:30)
[2017-01-22] MEDS: MIRTAZAPINE TAB 15 MG TAB PO SCH (20:27)
[2017-01-23] MEDS: PIPERACILL/TAZOBAC IV 3.375 GM in DEXTROSE 5% 100ML 100 ML IV SCH ×3 (00:21→16:30)
[2017-01-23 03:46] VITALS: BP 152/83; PULSE 94; TEMP 36.6; O2SAT 96
[2017-01-23] MEDS ORDERED: VANCOMYCIN TROUGH ONE (05:30)
[2017-01-23 05:51] LABS: HEMATOCRIT 28.6 % (42-52); MEAN CELL VOLUME 87.5 fL (80-100); MEAN CORPUSCULAR HEMOGLOBIN 26.9 pg (25-34); MEAN CORPUSCULAR HGB CONC 30.8 g/dl (32-36); MEAN PLATELET VOLUME 9.6 fL (7.4-10.4); PLATELET COUNT 220 K/uL (130-400); RED BLOOD COUNT 3.27 M/uL (4.7-6.1); WHITE BLOOD COUNT 29.54 K/uL (4.8-10.8)
[2017-01-23] MEDS: VANCOMYCIN INJ 1,250 MG in SODIUM CHLORIDE 0.9% 250ML 250 ML IV SCH (06:06)
[2017-01-23 06:22] LABS: BASO % 0.1 %; BASO ABS # 0.02 K/uL (0-0.2); COMPLETE YES; ECHINOCYTES 1+; EOS % 0.1 %; HYPOCHROMIA PRESENT; IG% 0.6 %; LYMPH % 2.9 %; LYMPH ABS # 0.85 K/uL (1.2-3.4); NEUT % 90.3 %
[2017-01-23 06:24] LABS: BUN/CREATININE RATIO 29.1 (10-20); CALCIUM 7.8 mg/dl (8.5-10.1); CREATININE 1.95 mg/dl (0.60-1.40); MAGNESIUM 2.4 mg/dl (1.8-2.4); POTASSIUM 4.4 mmol/L (3.5-5.1)
[2017-01-23] MEDS: ALBUT/IPRATROP 3MG/0.5MG NEB 3 ML VIAL INH SCH (07:07)
[2017-01-23 07:11] VITALS: PULSE 98; O2SAT 93
[2017-01-23 07:21] VITALS: BP 162/75; PULSE 85; TEMP 36.9; O2SAT 98
[2017-01-23] MEDS: METOPROLOL TARTRATE 50 MG TAB PO SCH ×2 (07:50→19:53)
[2017-01-23] MEDS: CLONIDINE HCL 0.1 MG TAB PO SCH ×2 (07:51→19:53)
[2017-01-23] MEDS: MULTIVITAMIN TAB PO SCH (07:51)
[2017-01-23] MEDS: NYSTATIN SUSP 500,000 U/5 ML UDC PO SCH ×5 (07:51→19:54)
[2017-01-23] MEDS: ACETAMINOPHEN 500 MG TAB PO SCH ×2 (07:52→20:47)
[2017-01-23] MEDS: NEOMYCIN/POLYMYX/HYDROCORT OT SOLN 10 ML BTL OT SCH ×3 (07:52→19:54)
--- NOTE | 2017-01-23 08:49 | Pharmacy Progress Note ---
Pharmacy Abx Dose Short Note Date of Service Jan 23, 2017. Assessment & Plan Assessment 71 year old male receiving Vancomycin/Zosyn IV for treatment of sepsis secondary to pulmonary source vs urinary vs previous nephrostomy tube. Day # 4 of antimicrobial therapy. Plan Vancomycin * Trough level of 16.9 mcg/mL is therapeutic. * Continue dose of 1250 mg IV every 24 hours. * Goal trough level: 15 to 20 mcg/mL * A follow up trough level ordered for: 01/26/17 prior to 0600 dose to ensure no accumulation occurs with prolonged duration (if indicated). Pharmacy will continue to follow and will adjust dose/frequency as necessary. Thank you.
[2017-01-23] MEDS: IPRATROPIUM BROMIDE/ALBUTEROL respimat INH INH SCH ×3 (12:03→19:54)
--- NOTE | 2017-01-23 13:07 | Hematology/Oncology Prog Note ---
Hematology/Onc Progress Note Date of Service Jan 23, 2017. Diagnoses Metastatic urothelial carcinoma Pleural effusion Leukocytosis Medications Medications Administered Medications (Trade) Dose Ordered Sig/Cb Route Start Time Stop Time Status Last Admin Dose Admin Sodium Chloride 1,000 ml @ 999 mls/hr Q1H1M STAT IV 01/20/17 17:30 01/20/17 18:30 DC 01/20/17 18:52 999 MLS/HR Piperacillin Sod/ Tazobactam Sod (Zosyn Iv) 4.5 gm NOW STAT IV 01/20/17 17:30 01/20/17 17:36 DC 01/20/17 18:52 4.5 GM Vancomycin HCl (Vancomycin 1gm/ 270ml Nss) 1 gm NOW STAT IV 01/20/17 17:30 01/20/17 17:36 DC 01/20/17 20:06 1 GM Albuterol/ Ipratropium (Duoneb) 3 ml NOW STAT INH 01/20/17 17:30 01/20/17 17:36 DC 01/20/17 18:52 3 ML Sodium Chloride 1,000 ml @ 75 mls/hr [id number] IV 01/20/17 18:40 01/21/17 15:00 DC 01/21/17 07:44 75 MLS/HR Acetaminophen (Tylenol Tab) 650 mg Q6H PRN PO 01/20/17 18:45 02/19/17 18:44 01/21/17 14:14 650 MG Clonidine HCl (Catapres Tab) 0.1 mg BID PO 01/20/17 21:00 02/19/17 20:59 01/23/17 07:51 0.1 MG Hydromorphone HCl (Dilaudid Tab) 4 mg Q6 PRN PO 01/20/17 18:45 01/22/17 12:23 DC 01/22/17 02:02 4 MG Metoprolol Tartrate (Lopressor Tab) 50 mg BID PO 01/20/17 21:00 02/19/17 20:59 01/23/17 07:50 50 MG Multivitamins (Multivitamin Tab) 1 tab QAM PO 01/21/17 09:00 02/20/17 08:59 01/23/17 07:51 1 TAB Diphenhydramine HCl (Benadryl Cap) 50 mg HS PO 01/20/17 21:00 12/29/17 20:59 01/22/17 20:27 50 MG Mirtazapine (Remeron Tab) 15 mg HS PO 01/20/17 21:00 02/19/17 20:59 01/22/17 20:27 15 MG Vancomycin HCl 1250 mg/Sodium Chloride 275 ml @ 125 mls/hr DAILY@0600 IV 01/21/17 06:00 01/28/17 05:59 01/23/17 06:06 125 MLS/HR Piperacillin Sod/ Tazobactam Sod 3.375 gm/Dextrose 115 ml @ 28.75 mls/ hr Q8H IV 01/21/17 00:00 01/28/17 00:00 01/23/17 08:54 28.75 MLS/HR Nystatin (Mycostatin Susp) 5 ml QID PO 01/20/17 21:00 01/30/17 20:59 01/23/17 07:51 5 ML Acetaminophen (Tylenol Tab) 1,000 mg BID PO 01/20/17 21:00 02/19/17 20:59 01/23/17 07:52 1,000 MG Albuterol/ Ipratropium (Duoneb) 3 ml QIDR INH 01/20/17 20:00 01/22/17 13:20 DC 01/22/17 11:09 3 ML Neomycin/ Polymyxin/ Hydrocortisone (Cortisporin Otic Soln) 2 drops TID OT 01/21/17 14:00 02/20/17 13:59 01/23/17 07:52 2 DROPS Heparin Sodium (Porcine) (Heparin 100 Unit/ml 5ml Flush) 5 ml PRN PRN IV 01/22/17 00:15 02/21/17 00:14 01/23/17 05:33 5 ML Albuterol/ Ipratropium (Duoneb) 3 ml QIDR PRN INH 01/22/17 16:00 01/22/17 19:39 DC 01/22/17 19:34 3 ML Albuterol/ Ipratropium (Duoneb) 3 ml Q4RWA INH 01/22/17 20:00 01/23/17 11:11 DC 01/23/17 07:07 3 ML Albuterol/ Ipratropium (Combivent Respimat Inh) 1 puffs Q4HWA INH 01/23/17 12:00 02/22/17 11:59 01/23/17 12:03 1 PUFFS Subjective Mr. Mello is comfortable in the chair. His breathing looks more comfortable as well. He has no pain. His appetite is fair. Review of Systems: Constitutional: + weakness, + fatigue, No fever Respiratory: No cough, No shortness of breath Cardiovascular: No chest pain Abdomen: No pain, No nausea, No diarrhea Male : No hematuria Heme: No abnormal bleeding/bruising Vital Signs Vital Signs Past 12 Hours Date Time Temp Pulse Resp B/P (MAP) Pulse Ox O2 Delivery O2 Flow Rate FiO2 01/23/17 08:00 Room Air 01/23/17 07:21 36.9 85 18 162/75 (104) 98 Room Air 01/23/17 07:11 98 14 93 Room Air 01/23/17 03:46 36.6 94 18 152/83 (106) 96 Room Air Physical Exam Constitutional: Level of Distress: NAD, chronically ill Psychiatric: Mental Status: active & alert Orientation: oriented except where noted ENMT: pharynx normal Lungs: Respiratory Effort: use of accessory muscles Auscuitation: decreased breath sounds (in lower almeida on the right) Cardiovascular: Heart Auscultation: RRR Abdomen: Inspection & Palpation: soft, no tenderness, guarding & rebound Musculoskeletal: normal strength (5/5 throughout) Extremities: no edema Laboratory Last 24 Hours Test 01/23/17 05:37 White Blood Count 29.54 K/uL Red Blood Count 3.27 M/uL Hemoglobin 8.8 g/dL Hematocrit 28.6 % Mean Corpuscular Volume 87.5 fL Mean Corpuscular Hemoglobin 26.9 pg Mean Corpuscular Hemoglobin Concent 30.8 g/dl Platelet Count 220 K/uL Mean Platelet Volume 9.6 fL Neutrophils (%) (Auto) 90.3 % Lymphocytes (%) (Auto) 2.9 % Monocytes (%) (Auto) 6.0 % Eosinophils (%) (Auto) 0.1 % Basophils (%) (Auto) 0.1 % Neutrophils # (Auto) 26.70 K/uL Lymphocytes # (Auto) 0.85 K/uL Monocytes # (Auto) 1.78 K/uL Eosinophils # (Auto) 0.02 K/uL Basophils # (Auto) 0.02 K/uL RDW Standard Deviation 54.3 fL RDW Coefficient of Variation 17.4 % Immature Granulocyte % (Auto) 0.6 % Immature Granulocyte # (Auto) 0.17 K/uL Hypochromasia PRESENT Echinocytes 1+ Sodium Level 137 mmol/L Potassium Level 4.4 mmol/L Chloride Level 107 mmol/L Carbon Dioxide Level 24 mmol/L Anion Gap 6.0 mmol/L Blood Urea Nitrogen 57 mg/dl Creatinine 1.95 mg/dl Est Creatinine Clear Calc Drug Dose 37.7 ml/min Estimated GFR () 39.5 Estimated GFR (Non- 34.1 BUN/Creatinine Ratio 29.1 Random Glucose 121 mg/dl Calcium Level 7.8 mg/dl Magnesium Level 2.4 mg/dl Vancomycin Level Trough 16.9 mcg/ml Assessment & Plan His cultures have mostly been negative or consistent with contaminants. He also is afebrile and has no other obvious evidence of infection. I suspect his leukocytosis is a response to his progressive cancer. His CT revealed new hepatic hypodensities consistent with progressive disease. While pseudo- progression is sometimes seen in patients treated with immunotherapy, generally this does not lead to new tumors and such patients are usually clinically improving, which he is clearly not. Overall, I think this represents true progression. Response rates to single-agent checkpoint inhibitors are only around 20-30% on average, so this is not surprising. He has an appointment with Dr. Groves in the office next week to discuss next steps. His renal function has stabilized, but did not significantly improve. I saw that nephrology were consulted. Immunotherapy can cause an immune nephritis, but this is an unusual toxicity and should be on the lower end of the differential. That being said, if another better explanation does not reveal itself, it should be considered. There is not a standard treatment for immune nephritis, but generally steroids are attempted.
--- NOTE | 2017-01-23 13:49 | Nephrology Consultation ---
Nephrology Consultation Date & Providers Date of Consultation: Jan 23, 2017. Primary Care Provider: Agustín Groves D.O. Referring Provider: Reason for Consultation Acute renal insufficiency History of Present Illness Mr. Sancho Mello is a 71-year-old male with metastatic urothelial cancer. He was referred for admission by his oncologist on January 20. Sancho presented to [facility] with generalized malaise, progressive CADE, dry cough, chills, and generalized weakness. He reports a low grade fever at home within 24 hours of presentation. He has been afebrile since admission. Broad spectrum antibiotics with vancomycin and Zosyn were started for Sepsis. SIRs criteria included a WBC of 29,000 (neutrophil predominate), tachycardia and tachypnea. No clear source of infection has been identified. Sancho states that he is feeling better. He remains weak and appetite is poor but otherwise he has no complaints. He is hopeful that he can be discharged home soon. CT scan of the chest revealed a large right sided pleural effusion as well as parenchymal hyperdensities and nodular/ground glass opacities and evidence of bronchiolitis in the left lower lobe. Thoracentesis removed 1.2 liters of pale yellow fluid. From this Sancho reports symptomatic improvement regarding his pulmonary symptoms. Fluid was exudative by Light's criteria (LDH 214, protein 4.4; serum LDH notably elevated at 473). Cultures from the fluid have been negative. Cytology is pending. Non contrast CT of the abdomen shows an enlarged right kidney with emphysematous changes in the mid pole with soft tissue and fluid density tracking evident. This study was reviewed with the on-call radiologist. The study was compared to imaging obtained at [facility] in October of 2016. CT with contrast obtained at [facility] showed changes consistent with necrotic tumor or abscess at that time. I called and discussed the history with the on-call urologist from [facility] where the patient had been followed. Based on interpretation, there may be enlargement in the interim of approximately 4 mm based on current imaging interpretation. [facility] urology informed me that Sancho had initially presented to the ED at [facility] with what was suspected to be an abscess in the right kidney in the summer. PCN was placed for drainage but fluid cultures were negative. The lesion drained malignant cells marking the diagnosis of his malignancy. The PCN was dislodged and subsequently removed on October 13. CT scan was performed in October for surveillance imaging and felt to have not changed. There has been intermittent drainage from the nephrostomy tube site since the tube was removed per report of the patient. It is unclear if this fluid was ever purulent. Documentation in the hospital does suggest that there was some purulent drainage but no fluid was able to be obtained for culture. Prior urine cultures had yielded enterococcus (non VRE as well as pseudomonas). Urine cultures since admission have been negative. Nephrology consultation was requested today to assist in management of progressive acute kidney injury. Serum creatinine in November 2016 was 1.2 mg/ dL. In December, creatinine had increased to 1.6 mg/dL. Creatinine was 2.1 mg/ dL on January 20 and remained stable at 1.9 mg/dL following fluid resuscitation. Metabolic profile has otherwise been normal. Laboratory studies are notable for hypoalbuminemia. Urine studies documented 2+ protein, occult blood (10-30 RBC/hpf), >30 WBC and granular cast. Medical records were reviewed in detail today. Imaging studies were reviewed personally and discussed with those involved. Sancho denies any current urinary symptoms including dysuria, hematuria, pneumaturia. He does not endorse significant flank or abdominal pain. His primary complaint at this time is insomnia. Past Medical/Surgical History Medical: -- Metastatic urothelial cancer with liver mets current on treatment with atezolizumab -- Hypertension -- Anemia -- Long QT syndrome -- History of nephrolithiasis Surgical: -- Percutaneous nephrostomy tube placement Allergies Coded Allergies: No Known Allergies (Unverified , 01/20/17) Inpatient Medications Current Inpatient Medications Medications (Trade) Dose Ordered Sig/Cb Route Start Time Stop Time Status Last Admin Dose Admin Acetaminophen (Tylenol Tab) 650 mg Q6H PRN PO 01/20/17 18:45 02/19/17 18:44 01/21/17 14:14 650 MG Al Hydrox/Mg Hydrox/Simethicone (Maalox Max Susp) 15 ml Q4H PRN PO 01/20/17 18:45 02/19/17 18:44 Magnesium Hydroxide (Milk Of Magnesia Susp) 30 ml Q12H PRN PO 01/20/17 18:45 02/19/17 18:44 Ondansetron HCl (Zofran Inj) 4 mg Q6H PRN IV 01/20/17 18:45 12/29/17 18:44 Polyethylene (Miralax Powder Packet) 17 gm DAILY PRN PO 01/20/17 18:45 02/19/17 18:44 Clonidine HCl (Catapres Tab) 0.1 mg BID PO 01/20/17 21:00 02/19/17 20:59 01/23/17 07:51 0.1 MG Metoprolol Tartrate (Lopressor Tab) 50 mg BID PO 01/20/17 21:00 02/19/17 20:59 01/23/17 07:50 50 MG Multivitamins (Multivitamin Tab) 1 tab QAM PO 01/21/17 09:00 02/20/17 08:59 01/23/17 07:51 1 TAB Diphenhydramine HCl (Benadryl Cap) 50 mg HS PO 01/20/17 21:00 02/19/17 20:59 01/22/17 20:27 50 MG Mirtazapine (Remeron Tab) 15 mg HS PO 01/20/17 21:00 02/19/17 20:59 01/22/17 20:27 15 MG Vancomycin HCl 1250 mg/Sodium Chloride 275 ml @ 125 mls/hr DAILY@0600 IV 01/21/17 06:00 01/28/17 05:59 01/23/17 06:06 125 MLS/HR Piperacillin Sod/ Tazobactam Sod 3.375 gm/Dextrose 115 ml @ 28.75 mls/ hr Q8H IV 01/21/17 00:00 01/28/17 00:00 01/23/17 08:54 28.75 MLS/HR Nystatin (Mycostatin Susp) 5 ml QID PO 01/20/17 21:00 01/30/17 20:59 01/23/17 07:51 5 ML Acetaminophen (Tylenol Tab) 1,000 mg BID PO 01/20/17 21:00 02/19/17 20:59 01/23/17 07:52 1,000 MG Hydralazine HCl (HydrALAZINE INJ) 10 mg Q6 PRN IV. 01/20/17 19:45 02/19/17 19:44 Piperacillin Sod/ Tazobactam Sod (Consult) 1 ea UD PRN N/A 01/20/17 20:30 02/19/17 20:29 Vancomycin HCl (Consult) 1 ea UD PRN N/A 01/20/17 20:45 02/19/17 20:44 Neomycin/ Polymyxin/ Hydrocortisone (Cortisporin Otic Soln) 2 drops TID OT 01/21/17 14:00 02/20/17 13:59 01/23/17 07:52 2 DROPS Carbamide Peroxide (Earwax Removal Soln) 1 drops DAILY PRN OT 01/21/17 11:45 01/25/17 11:44 Heparin Sodium (Porcine) (Heparin 100 Unit/ml 5ml Flush) 5 ml PRN PRN IV 01/22/17 00:15 02/21/17 00:14 01/23/17 05:33 5 ML Hydromorphone HCl (Dilaudid Tab) 2 mg Q6 PRN PO 01/22/17 12:30 02/03/17 18:44 Albuterol/ Ipratropium (Combivent Respimat Inh) 1 puffs Q4HWA INH 01/23/17 12:00 02/22/17 11:59 01/23/17 12:03 1 PUFFS Family History Breast Cancer Kidney disease Social History Smoking Status: Former Smoker Smokeless Tobacco Use: No Alcohol Use: none Drug Use: none Marital Status: Housing Status: lives with significant other Occupation: retired Review of Systems Constitutional: + weight loss, + weakness, + fatigue, No fever, No chills, No sweats Respiratory: + cough, + dyspnea on exertion, No dyspnea at rest Abdomen: + nausea Genitourinary - Male: No hematuria, No dysuria Integumentary: No rash A complete review of systems was performed. Pertinent positives are noted above. All other systems are negative. Physical Exam Date Time Temp Pulse Resp B/P (MAP) Pulse Ox O2 Delivery O2 Flow Rate FiO2 01/23/17 08:00 Room Air 01/23/17 07:21 36.9 85 18 162/75 (104) 98 Room Air 01/23/17 07:11 98 14 93 Room Air 01/23/17 03:46 36.6 94 18 152/83 (106) 96 Room Air 01/23/17 00:00 Room Air 01/22/17 23:39 36.4 76 18 122/65 (84) 95 Room Air 01/22/17 20:00 Room Air 01/22/17 19:34 107 16 96 Room Air 01/22/17 19:11 36.9 109 20 166/81 (109) 98 Room Air 01/22/17 16:00 Room Air 01/22/17 14:00 Room Air 01/22/17 13:43 36.7 76 18 160/87 (111) 98 Room Air General Appearance: no apparent distress, + thin Head: normocephalic, atraumatic Eyes: normal inspection, sclerae normal ENT: normal ENT inspection, pharynx normal, + pertinent finding (oral mucosa slightly dry) Neck: supple, no JVD Respiratory/Chest: no respiratory distress, no accessory muscle use, + decreased breath sounds, + rales Cardiovascular: regular rate, rhythm, no gallop Abdomen/GI: non tender, soft Back: no CVA tenderness Extremities/Musculoskelatal: + pertinent finding (doughy bilateral lower extremity edema to the knees with dependent edema in the sacrum, no distal cyanosis) Neurologic/Psych: alert, normal mood/affect Skin: normal color, + pertinent finding (patient was too weak to support himself to adequately assess the PCN site but what could be seen was without crepitus, erythema or purulent drainage) Laboratory Results Last 24 Hours Test 01/23/17 05:37 White Blood Count 29.54 K/uL Red Blood Count 3.27 M/uL Hemoglobin 8.8 g/dL Hematocrit 28.6 % Mean Corpuscular Volume 87.5 fL Mean Corpuscular Hemoglobin 26.9 pg Mean Corpuscular Hemoglobin Concent 30.8 g/dl Platelet Count 220 K/uL Mean Platelet Volume 9.6 fL Neutrophils (%) (Auto) 90.3 % Lymphocytes (%) (Auto) 2.9 % Monocytes (%) (Auto) 6.0 % Eosinophils (%) (Auto) 0.1 % Basophils (%) (Auto) 0.1 % Neutrophils # (Auto) 26.70 K/uL Lymphocytes # (Auto) 0.85 K/uL Monocytes # (Auto) 1.78 K/uL Eosinophils # (Auto) 0.02 K/uL Basophils # (Auto) 0.02 K/uL RDW Standard Deviation 54.3 fL RDW Coefficient of Variation 17.4 % Immature Granulocyte % (Auto) 0.6 % Immature Granulocyte # (Auto) 0.17 K/uL Hypochromasia PRESENT Echinocytes 1+ Sodium Level 137 mmol/L Potassium Level 4.4 mmol/L Chloride Level 107 mmol/L Carbon Dioxide Level 24 mmol/L Anion Gap 6.0 mmol/L Blood Urea Nitrogen 57 mg/dl Creatinine 1.95 mg/dl Est Creatinine Clear Calc Drug Dose 37.7 ml/min Estimated GFR () 39.5 Estimated GFR (Non- 34.1 BUN/Creatinine Ratio 29.1 Random Glucose 121 mg/dl Calcium Level 7.8 mg/dl Magnesium Level 2.4 mg/dl Vancomycin Level Trough 16.9 mcg/ml Impression (1) Acute renal insufficiency (2) ATN (acute tubular necrosis) (3) Sepsis (4) Pleural effusion on right (5) Leukocytosis (6) HTN (hypertension) (7) Right renal mass Mr. 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 He has evidence of progressive disease while maintained on atezolizumab. He presented with progressive fatigue, malaise, generalized weakness, dyspnea and cough. He also reported subjective fever at home. He was admitted with sepsis with unclear source of infection. A right pleural effusion has been drained which is exudative by Light's criteria. Cultures from the fluid are negative and cytology is pending. Imaging also reveals persistent changes in the right kidney consistent with a necrotic tumor or abscess. Urine cultures were negative. UA is notable for pyuria, microscopic hematuria and proteinuria. He remains on treatment with vancomycin and Zosyn. Leukocytosis persists but other signs of infection are improving. He remains afebrile. Sancho has progressive ELLA. Urine microscopy and clinical history are consistent with ATN (granular cast noted). ARSEN inhibitor has been held. Blood pressure and volume status are currently appropriate. He is hypervolemic with increased TBW but I suspect slightly intravascularly dry given hypoalbuminemia. No additional diuretics or IVF are necessary at this time. I discussed adequate fluid intake with the patient and his family. Immune mediated nephritis associated with treatment for malignancy would be consider but at this time renal function is stable and therapy has been stopped. No additional management would be considered warranted. I cannot exclude other potential causes of ELLA including AIN or GN but these would be considered significantly unlikely and overall renal function has been stable for the past 3 days. No additional evaluation is necessary at this time for ELLA aside from monitoring for renal recovery. Medical records were reviewed in detail today. I discussed the case in detail with Dr. Venegas. I also briefly discussed imaging findings with urology from [facility]. The patient and family are content to monitor progress on current therapy. General understanding is that Sancho would have to be transferred to [facility] should removal or drainage of the right kidney be required. Recommendations ELLA/ATN: -- Document I/O's -- Monitor metabolic profile daily -- Encourage nutrition and adequate hydration with oral fluids -- Hold ARSEN -- Medications are appropriately dosed for renal function -- Vancomycin level should be check daily prior to each dose Leukocytosis: -- Etiology unclear and source of infection not identified -- Maintain high suspicion for infection/abscess in the right kidney -- ID consult would be helpful to help negotiate antibiotics and additional management Hypertension: -- BP currently appropriate -- Allow some permissive hypertension given ELLA Pleural effusion: -- Cytology pending
[2017-01-23 15:07] VITALS: BP 168/79; PULSE 95; TEMP 37.3; O2SAT 96
[2017-01-23 19:46] VITALS: BP 187/87; PULSE 118; TEMP 37; O2SAT 97
[2017-01-23] MEDS: MIRTAZAPINE TAB 15 MG TAB PO SCH (20:48)
[2017-01-24] VITALS (7 sets, daily range): BP systolic 126–177; BP diastolic 72–84; PULSE 74–112; TEMP 36.3–36.8; O2SAT 95–99
[2017-01-24] MEDS: PIPERACILL/TAZOBAC IV 3.375 GM in DEXTROSE 5% 100ML 100 ML IV SCH ×3 (00:23→16:23)
[2017-01-24] MEDS: HydrALAZINE HCL 20 MG/ML VIAL IV. PRN (05:17)
[2017-01-24] MEDS: VANCOMYCIN INJ 1,250 MG in SODIUM CHLORIDE 0.9% 250ML 250 ML IV SCH (06:14)
--- NOTE | 2017-01-24 07:38 | Progress Note ---
Subjective Date of Service: Jan 23, 2017. Subjective Pt evaluation today including: conversation w/ patient, conversation w/ family ( and daughter), physical exam, lab review, review of studies, conversation w/ baby registry sales consultant, review of inpatient medication list Pain: no pain PO Intake: adequate Voiding: no voiding problems discussed the case at length with Dr. Reyes and Dr. Valles CT shows progression of disease in liver, right kidney larger possible abscess or emphysematous pyelo in right kidney with gas Dr. Reyes talked with urology at [facility], similar appearance to kidney in the spring when he first presented and thought he had abscess at that time nephrostomy tube placed and he had malignancy would be hesitant to put another tube in place, not sure that this is infection WBC going down, afebrile, could be leukemoid reaction with treatment Dr. Valles discussed situation at length with family, options will be discussed in detail with Dr. Groves in the office Problem List Medical Problems: (1) Anemia Status: Acute (2) ARF (acute renal failure) Status: Acute (3) Drug-induced encephalopathy Status: Acute (4) Fall at home Status: Acute (5) Leukocytosis Status: Acute (6) Leukocytosis Status: Acute (7) Pleural effusion Status: Acute (8) Pneumonia Status: Acute (9) Renal failure Status: Acute (10) UTI (urinary tract infection) Status: Acute Review of Systems Constitutional: + weakness, + fatigue All Other Systems: Reviewed and Negative Medications Current Inpatient Medications Medications (Trade) Dose Ordered Sig/Cb Route Start Time Stop Time Status Last Admin Dose Admin Acetaminophen (Tylenol Tab) 650 mg Q6H PRN PO 01/20/17 18:45 02/19/17 18:44 01/21/17 14:14 650 MG Al Hydrox/Mg Hydrox/Simethicone (Maalox Max Susp) 15 ml Q4H PRN PO 01/20/17 18:45 02/19/17 18:44 Magnesium Hydroxide (Milk Of Magnesia Susp) 30 ml Q12H PRN PO 01/20/17 18:45 02/19/17 18:44 Ondansetron HCl (Zofran Inj) 4 mg Q6H PRN IV 01/20/17 18:45 02/19/17 18:44 Polyethylene (Miralax Powder Packet) 17 gm DAILY PRN PO 01/20/17 18:45 02/19/17 18:44 Clonidine HCl (Catapres Tab) 0.1 mg BID PO 01/20/17 21:00 02/19/17 20:59 01/23/17 07:51 0.1 MG Metoprolol Tartrate (Lopressor Tab) 50 mg BID PO 01/20/17 21:00 02/19/17 20:59 01/23/17 07:50 50 MG Multivitamins (Multivitamin Tab) 1 tab QAM PO 01/21/17 09:00 02/20/17 08:59 01/23/17 07:51 1 TAB Diphenhydramine HCl (Benadryl Cap) 50 mg HS PO 01/20/17 21:00 02/19/17 20:59 01/22/17 20:27 50 MG Mirtazapine (Remeron Tab) 15 mg HS PO 01/20/17 21:00 02/19/17 20:59 01/22/17 20:27 15 MG Vancomycin HCl 1250 mg/Sodium Chloride 275 ml @ 125 mls/hr DAILY@0600 IV 01/21/17 06:00 01/28/17 05:59 01/23/17 06:06 125 MLS/HR Piperacillin Sod/ Tazobactam Sod 3.375 gm/Dextrose 115 ml @ 28.75 mls/ hr Q8H IV 01/21/17 00:00 01/28/17 00:00 01/23/17 08:54 28.75 MLS/HR Nystatin (Mycostatin Susp) 5 ml QID PO 01/20/17 21:00 01/30/17 20:59 01/23/17 07:51 5 ML Acetaminophen (Tylenol Tab) 1,000 mg BID PO 01/20/17 21:00 02/19/17 20:59 01/23/17 07:52 1,000 MG Hydralazine HCl (HydrALAZINE INJ) 10 mg Q6 PRN IV. 01/20/17 19:45 02/19/17 19:44 Piperacillin Sod/ Tazobactam Sod (Consult) 1 ea UD PRN N/A 01/20/17 20:30 02/19/17 20:29 Vancomycin HCl (Consult) 1 ea UD PRN N/A 01/20/17 20:45 02/19/17 20:44 Neomycin/ Polymyxin/ Hydrocortisone (Cortisporin Otic Soln) 2 drops TID OT 01/21/17 14:00 02/20/17 13:59 01/23/17 07:52 2 DROPS Carbamide Peroxide (Earwax Removal Soln) 1 drops DAILY PRN OT 01/21/17 11:45 01/25/17 11:44 Heparin Sodium (Porcine) (Heparin 100 Unit/ml 5ml Flush) 5 ml PRN PRN IV 01/22/17 00:15 02/21/17 00:14 01/23/17 05:33 5 ML Hydromorphone HCl (Dilaudid Tab) 2 mg Q6 PRN PO 01/22/17 12:30 02/03/17 18:44 Albuterol/ Ipratropium (Combivent Respimat Inh) 1 puffs Q4HWA INH 01/23/17 12:00 02/22/17 11:59 01/23/17 12:03 1 PUFFS Objective Vital Signs Date Time Temp Pulse Resp B/P (MAP) Pulse Ox O2 Delivery O2 Flow Rate FiO2 01/23/17 08:00 Room Air 01/23/17 07:21 36.9 85 18 162/75 (104) 98 Room Air 01/23/17 07:11 98 14 93 Room Air 01/23/17 03:46 36.6 94 18 152/83 (106) 96 Room Air 01/23/17 00:00 Room Air 01/22/17 23:39 36.4 76 18 122/65 (84) 95 Room Air 01/22/17 20:00 Room Air 01/22/17 19:34 107 16 96 Room Air 01/22/17 19:11 36.9 109 20 166/81 (109) 98 Room Air 01/22/17 16:00 Room Air Physical Exam General Appearance: WD/WN, no apparent distress Eyes: normal inspection, EOMI, sclerae normal ENT: normal ENT inspection, hearing grossly normal, pharynx normal Neck: supple, no adenopathy, no JVD, trachea midline Respiratory/Chest: chest non-tender, lungs clear, no respiratory distress, no accessory muscle use, + decreased breath sounds (right base) Cardiovascular: regular rate, rhythm, no gallop, no JVD, no murmur Abdomen: normal bowel sounds, non tender, soft, no organomegaly Extremities: normal range of motion, non-tender, normal inspection, no calf tenderness, pelvis stable, + pedal edema Neurologic/Psychiatric: design inserter II-XII nml as tested, alert, oriented x 3, + motor weakness, + depressed affect Skin: normal color, warm/dry, no rash Laboratory Results Last 24 Hours Test 01/23/17 05:37 White Blood Count 29.54 K/uL Red Blood Count 3.27 M/uL Hemoglobin 8.8 g/dL Hematocrit 28.6 % Mean Corpuscular Volume 87.5 fL Mean Corpuscular Hemoglobin 26.9 pg Mean Corpuscular Hemoglobin Concent 30.8 g/dl Platelet Count 220 K/uL Mean Platelet Volume 9.6 fL Neutrophils (%) (Auto) 90.3 % Lymphocytes (%) (Auto) 2.9 % Monocytes (%) (Auto) 6.0 % Eosinophils (%) (Auto) 0.1 % Basophils (%) (Auto) 0.1 % Neutrophils # (Auto) 26.70 K/uL Lymphocytes # (Auto) 0.85 K/uL Monocytes # (Auto) 1.78 K/uL Eosinophils # (Auto) 0.02 K/uL Basophils # (Auto) 0.02 K/uL RDW Standard Deviation 54.3 fL RDW Coefficient of Variation 17.4 % Immature Granulocyte % (Auto) 0.6 % Immature Granulocyte # (Auto) 0.17 K/uL Hypochromasia PRESENT Echinocytes 1+ Sodium Level 137 mmol/L Potassium Level 4.4 mmol/L Chloride Level 107 mmol/L Carbon Dioxide Level 24 mmol/L Anion Gap 6.0 mmol/L Blood Urea Nitrogen 57 mg/dl Creatinine 1.95 mg/dl Est Creatinine Clear Calc Drug Dose 37.7 ml/min Estimated GFR () 39.5 Estimated GFR (Non- 34.1 BUN/Creatinine Ratio 29.1 Random Glucose 121 mg/dl Calcium Level 7.8 mg/dl Magnesium Level 2.4 mg/dl Vancomycin Level Trough 16.9 mcg/ml Assessment and Plan 71 yo male with history of metastatic urothelial cancer to the liver, presented from oncology office with increased shortness of breath and large right pleural effusion - Suspected Sepsis: significant leukocytosis and tachycardia, although no fever unclear source at this time, no growth on blood cultures, urine culture or pleural fluid culture pleural fluid, pH 7.4 thus ruling out empyema and fluid did not appear infected continue broad spectrum antibiotics for now WBC trending down to 27k no abscess or clear signs of infection on CT chest and abdomen/pelvis there is a possibility that he does not have an infection, could be leukemoid reaction to treatment - right pleural effusion: work up started 02/20 with thoracentesis for 1250cc no post procedure pneumothorax on CXR LDH and protein high suggesting exudative, cytology pending, culture with no growth so far lung re-expanded well, no edema, breathing comfortably on room air - metastatic urothelial cancer: treatment on hold, oncology following CT 01/22 suggests progressive disease despite chemotherapy more lesions and lesions larger in the liver, right kidney larger no definitive lesions in lungs but suspect the effusion is malignant patient going to follow up with Dr. Groves to discuss further options going forward immunotherapy that patient was taking only has a 20-30% response rate - ELLA: Cr at 1.95 today, adequate UO, electrolytes stable discussed case with Dr. Reyes, most likely patient has ATN no further fluids needs follow electrolytes - Right kidney with focus of gas raises question that this could be abscess or emphysematous pyelonephritis no fever, urine culture with staph species but likely skin contaminant Dr. Reyes discussed this with urology service at [facility] that saw patient in the spring when he originally presented at that time he had a focus of gas in the kidney, nephrostomy tube placed to drain what they thought was abscess however, it was determined to be malignancy if patient does not have fever and WBC trends down, would not be aggressive per Dr. Reyes, urology not sure they would place a new drain because unsure this is infection Level 1
[2017-01-24 08:46] LABS: HEMATOCRIT 28.7 % (42-52); MEAN CELL VOLUME 86.4 fL (80-100); MEAN CORPUSCULAR HGB CONC 32.4 g/dl (32-36); MEAN PLATELET VOLUME 10.6 fL (7.4-10.4); PLATELET COUNT 241 K/uL (130-400); RED BLOOD COUNT 3.32 M/uL (4.7-6.1); WHITE BLOOD COUNT 30.81 K/uL (4.8-10.8)
[2017-01-24 08:47] LABS: BASO % 0.1 %; BASO ABS # 0.02 K/uL (0-0.2); COMPLETE YES; ECHINOCYTES 2+; EOS % 0.1 %; IG% 0.8 %; LYMPH % 2.1 %; LYMPH ABS # 0.66 K/uL (1.2-3.4); MONO % 4.7 %; NEUT % 92.2 %
[2017-01-24] MEDS: ACETAMINOPHEN 500 MG TAB PO SCH ×2 (08:48→20:48)
[2017-01-24] MEDS: MULTIVITAMIN TAB PO SCH (08:48)
[2017-01-24] MEDS: IPRATROPIUM BROMIDE/ALBUTEROL respimat INH INH SCH ×4 (08:48→20:50)
[2017-01-24] MEDS: METOPROLOL TARTRATE 50 MG TAB PO SCH ×2 (08:48→20:49)
[2017-01-24] MEDS: NEOMYCIN/POLYMYX/HYDROCORT OT SOLN 10 ML BTL OT SCH ×3 (08:48→20:50)
[2017-01-24] MEDS: CLONIDINE HCL 0.1 MG TAB PO SCH ×2 (08:48→20:49)
[2017-01-24] MEDS: NYSTATIN SUSP 500,000 U/5 ML UDC PO SCH ×4 (08:49→20:48)
[2017-01-24 09:01] LABS: BUN/CREATININE RATIO 25.1 (10-20); CALCIUM 7.7 mg/dl (8.5-10.1); CREATININE 1.98 mg/dl (0.60-1.40); POTASSIUM 4.3 mmol/L (3.5-5.1)
--- NOTE | 2017-01-24 10:31 | SURGERY PROGRESS NOTE ---
DATE: 01/24/2017 SUBJECTIVE: Mr. Mello was seen today with his daughter. He is not complaining of shortness of breath and is on room air. He is eager to go home. At this point, I think he does have decreased breath sounds on the right, I think this pleural effusions causing very little in the way of symptoms and I would not intervene. I would like to see him back in a week or so to see if it reaccumulates.
--- NOTE | 2017-01-24 11:31 | Nephrology Progress Note ---
Nephrology Progress Note Date of Service Jan 24, 2017. Chief Complaint Acute renal insufficiency Subjective No acute events overnight. Sancho was seen and evaluated with his family at the bedside. He continues to affirm that he wants to go home. He states that he is tired but otherwise feels well. He notes that his urine stream is slightly weak and frequency is increased. He denies a sensation of incomplete void. PVR was previously checked and found to be minimal. He denies dysuria or hematuria. He continues to deny flank pain. Minimal drainage from PCN site and the fluid reported is thin and clear per family. Nursing report suggestive of purulent material. Appetite remains diminished but he reports good fluid intake. Sancho denies significant dyspnea at rest or orthopnea. Review of Systems A complete review of systems was performed. Pertinent positives are noted above. All other systems are negative. Vital Signs Last 8 Hrs Date Time Temp Pulse Resp B/P (MAP) Pulse Ox O2 Delivery O2 Flow Rate FiO2 01/24/17 09:00 Room Air 01/24/17 07:19 36.5 112 18 167/84 (111) 98 Room Air 01/24/17 05:09 36.8 93 18 177/83 (114) 97 Room Air Last Recorded Weight Weight (Kilograms): 84.600 Physical Exam General Appearance: no apparent distress, + pertinent finding (well developed) Head: normocephalic, atraumatic Eyes: normal inspection, sclerae normal ENT: normal ENT inspection, pharynx normal Neck: supple, no JVD Respiratory/Chest: no respiratory distress, no accessory muscle use, + decreased breath sounds Cardiovascular: regular rate, rhythm, no gallop Abdomen/GI: non tender, soft Extremities/Musculoskelatal: normal inspection, + pedal edema Neurologic/Psych: alert, normal mood/affect Family History Breast Cancer Kidney disease Social History Smokeless Tobacco Use: No Alcohol Use: none Drug Use: none Marital Status: Housing Status: lives with significant other Occupation: retired Laboratory Results Past 24 Hours 01/24/17 07:39 Red Blood Count 3.32, Mean Corpuscular Volume 86.4, Mean Corpuscular Hemoglobin 28.0, Mean Corpuscular Hemoglobin Concent 32.4, Mean Platelet Volume 10.6, Neutrophils (%) (Auto) 92.2, Lymphocytes (%) (Auto) 2.1, Monocytes (%) (Auto) 4.7, Eosinophils (%) (Auto) 0.1, Basophils (%) (Auto) 0.1, Neutrophils # (Auto) 28.39, Lymphocytes # (Auto) 0.66, Monocytes # (Auto) 1.46, Eosinophils # (Auto) 0.03, Basophils # (Auto) 0.02 01/24/17 07:39 Test 01/24/17 07:39 White Blood Count 30.81 K/uL (4.8-10.8) Red Blood Count 3.32 M/uL (4.7-6.1) Hemoglobin 9.3 g/dL (14.0-18.0) Hematocrit 28.7 % (42-52) Mean Corpuscular Volume 86.4 fL (80-100) Mean Corpuscular Hemoglobin 28.0 pg (25-34) Mean Corpuscular Hemoglobin Concent 32.4 g/dl (32-36) Platelet Count 241 K/uL (130-400) Mean Platelet Volume 10.6 fL (7.4-10.4) Neutrophils (%) (Auto) 92.2 % Lymphocytes (%) (Auto) 2.1 % Monocytes (%) (Auto) 4.7 % Eosinophils (%) (Auto) 0.1 % Basophils (%) (Auto) 0.1 % Neutrophils # (Auto) 28.39 K/uL (1.4-6.5) Lymphocytes # (Auto) 0.66 K/uL (1.2-3.4) Monocytes # (Auto) 1.46 K/uL (0.11-0.59) Eosinophils # (Auto) 0.03 K/uL (0-0.5) Basophils # (Auto) 0.02 K/uL (0-0.2) RDW Standard Deviation 54.4 fL (36.4-46.3) RDW Coefficient of Variation 17.5 % (11.5-14.5) Immature Granulocyte % (Auto) 0.8 % Immature Granulocyte # (Auto) 0.25 K/uL (0.00-0.02) Echinocytes 2+ Anion Gap 11.0 mmol/L (3-11) Est Creatinine Clear Calc Drug Dose 37.3 ml/min Estimated GFR () 38.8 Estimated GFR (Non- 33.5 BUN/Creatinine Ratio 25.1 (10-20) Calcium Level 7.7 mg/dl (8.5-10.1) Allergies Coded Allergies: No Known Allergies (Unverified , 01/20/17) Medications Current Inpatient Medications Medications (Trade) Dose Ordered Sig/Cb Route Start Time Stop Time Status Last Admin Dose Admin Acetaminophen (Tylenol Tab) 650 mg Q6H PRN PO 01/20/17 18:45 02/19/17 18:44 01/21/17 14:14 650 MG Al Hydrox/Mg Hydrox/Simethicone (Maalox Max Susp) 15 ml Q4H PRN PO 01/20/17 18:45 02/19/17 18:44 Magnesium Hydroxide (Milk Of Magnesia Susp) 30 ml Q12H PRN PO 01/20/17 18:45 02/19/17 18:44 Ondansetron HCl (Zofran Inj) 4 mg Q6H PRN IV 01/20/17 18:45 02/19/17 18:44 Polyethylene (Miralax Powder Packet) 17 gm DAILY PRN PO 01/20/17 18:45 02/19/17 18:44 Clonidine HCl (Catapres Tab) 0.1 mg BID PO 01/20/17 21:00 02/19/17 20:59 01/24/17 08:48 0.1 MG Metoprolol Tartrate (Lopressor Tab) 50 mg BID PO 01/20/17 21:00 02/19/17 20:59 01/24/17 08:48 50 MG Multivitamins (Multivitamin Tab) 1 tab QAM PO 01/21/17 09:00 02/20/17 08:59 01/24/17 08:48 1 TAB Diphenhydramine HCl (Benadryl Cap) 50 mg HS PO 01/20/17 21:00 02/19/17 20:59 01/23/17 20:46 50 MG Mirtazapine (Remeron Tab) 15 mg HS PO 01/20/17 21:00 02/19/17 20:59 01/23/17 20:48 15 MG Vancomycin HCl 1250 mg/Sodium Chloride 275 ml @ 125 mls/hr DAILY@0600 IV 01/21/17 06:00 01/28/17 05:59 01/24/17 06:14 125 MLS/HR Piperacillin Sod/ Tazobactam Sod 3.375 gm/Dextrose 115 ml @ 28.75 mls/ hr Q8H IV 01/21/17 00:00 01/28/17 00:00 01/24/17 09:11 28.75 MLS/HR Nystatin (Mycostatin Susp) 5 ml QID PO 01/20/17 21:00 01/30/17 20:59 01/24/17 08:49 5 ML Acetaminophen (Tylenol Tab) 1,000 mg BID PO 01/20/17 21:00 02/19/17 20:59 01/24/17 08:48 1,000 MG Hydralazine HCl (HydrALAZINE INJ) 10 mg Q6 PRN IV. 01/20/17 19:45 02/19/17 19:44 01/24/17 05:17 10 MG Piperacillin Sod/ Tazobactam Sod (Consult) 1 ea UD PRN N/A 01/20/17 20:30 02/19/17 20:29 Vancomycin HCl (Consult) 1 ea UD PRN N/A 01/20/17 20:45 02/19/17 20:44 Neomycin/ Polymyxin/ Hydrocortisone (Cortisporin Otic Soln) 2 drops TID OT 01/21/17 14:00 02/20/17 13:59 01/24/17 08:48 2 DROPS Carbamide Peroxide (Earwax Removal Soln) 1 drops DAILY PRN OT 01/21/17 11:45 01/25/17 11:44 Heparin Sodium (Porcine) (Heparin 100 Unit/ml 5ml Flush) 5 ml PRN PRN IV 01/22/17 00:15 02/21/17 00:14 01/24/17 05:12 5 ML Hydromorphone HCl (Dilaudid Tab) 2 mg Q6 PRN PO 01/22/17 12:30 02/03/17 18:44 01/23/17 23:03 2 MG Albuterol/ Ipratropium (Combivent Respimat Inh) 1 puffs Q4HWA INH 01/23/17 12:00 02/22/17 11:59 01/24/17 08:48 1 PUFFS Impression (1) Acute renal insufficiency (2) ATN (acute tubular necrosis) (3) Sepsis (4) Pleural effusion on right (5) Leukocytosis (6) HTN (hypertension) (7) Right renal mass Mr. 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 He has evidence of progressive disease while maintained on atezolizumab. He presented with progressive fatigue, malaise, generalized weakness, dyspnea, cough and possible subjective fever at home. He was admitted with SIRs/suspected sepsis with unclear source of infection. A right pleural effusion has been drained which is exudative by Light's criteria. Cultures from the fluid are negative and cytology is pending. Imaging also reveals persistent changes in the right kidney consistent with a necrotic tumor or abscess. Urine cultures were negative prior to admission. UA had been notable for pyuria, microscopic hematuria and proteinuria. He remains on treatment with vancomycin and Zosyn. Leukocytosis persists but other signs of infection are improving. He remains afebrile. At this time, I would like to repeat urine studies including UA/microscopy and cultures. Once cultures are obtained, ID consult may help guide additional antibiotic therapy. It remains unclear if leukocytosis is a manifestation of infection or a leukemoid reaction. Oncology note was reviewed favoring potential leukemoid reaction, in which case, if urine is clear weaning antibiotics would be appropriate. Overall, renal function is stable. Urine microscopy and clinical history are consistent with ATN. ARSEN inhibitor has been held. Blood pressure and volume status are currently acceptable. He is hypervolemic with increased TBW but I suspect slightly intravascularly dry given hypoalbuminemia. No additional diuretics or IVF are necessary at this time. I discussed adequate fluid intake with the patient and his family. Immune mediated nephritis associated with treatment for malignancy cannot be completely excluded but at this time renal function is stable and mAB therapy has been stopped. No additional management would be considered warranted. I discussed the case with Dr. Venegas again this morning. Ultimately, once results or repeat urine studies are obtained, discussion with Fiordaliza Wang MD (urologist at [facility]) tomorrow would be helpful. Recommendations ELLA/ATN: -- Document I/O's -- Monitor metabolic profile daily while inpatient -- Encourage nutrition and adequate hydration with oral fluids -- Hold ARSEN -- Medications are appropriately dosed for renal function -- Vancomycin level should be check daily prior to each dose Leukocytosis: -- Etiology unclear -- Repeat urine studies today -- Continue to consider ID consult to help reconcile antibiotics moving forward -- Also suggest culture of any purulent material that can be expressed from PCN site Hypertension: -- BP currently acceptable -- Avoid aggressive management while inpatient Pleural effusion: -- CTS consult reviewed this morning with plan for follow up -- Cytology pending
[2017-01-24 12:14] LABS: URINE APPEARANCE TURBID (CLEAR); URINE BILIRUBIN NEG (NEG); URINE COLOR DK YELLOW; URINE NITRITE NEG (NEG); URINE SPECIFIC GRAVITY 1.027 (1.000-1.030); UROBILINOGEN NEG (NEG)
[2017-01-24 12:16] LABS: MANUAL MICROSCOPIC REQUIRED? NO; REVIEW REQ? YES
[2017-01-24] MEDS: MIRTAZAPINE TAB 15 MG TAB PO SCH (20:48)
--- NOTE | 2017-01-24 22:49 | Progress Note ---
Subjective Date of Service: Jan 24, 2017. Subjective Pt evaluation today including: conversation w/ patient, conversation w/ family , physical exam, lab review, conversation w/ career consultant, review of inpatient medication list Pain: no pain PO Intake: adequate Voiding: no voiding problems patient doing well, no new issues no fever, no pain, eating well breathing is stable reviewed labs, leukocytosis remains, Cr still 1.98 discussed the case with Dr. Reyes, ordered a repeat UA UA shows > 30WBC, + LE, possible UTI, culture sent Problem List Medical Problems: (1) Anemia Status: Acute (2) ARF (acute renal failure) Status: Acute (3) Drug-induced encephalopathy Status: Acute (4) Fall at home Status: Acute (5) Leukocytosis Status: Acute (6) Leukocytosis Status: Acute (7) Pleural effusion Status: Acute (8) Pneumonia Status: Acute (9) Renal failure Status: Acute (10) UTI (urinary tract infection) Status: Acute Review of Systems Constitutional: + weakness, + fatigue Respiratory: + dyspnea on exertion Cardiac: + edema All Other Systems: Reviewed and Negative Medications Current Inpatient Medications Medications (Trade) Dose Ordered Sig/Cb Route Start Time Stop Time Status Last Admin Dose Admin Acetaminophen (Tylenol Tab) 650 mg Q6H PRN PO 01/20/17 18:45 02/19/17 18:44 01/21/17 14:14 650 MG Al Hydrox/Mg Hydrox/Simethicone (Maalox Max Susp) 15 ml Q4H PRN PO 01/20/17 18:45 02/19/17 18:44 Magnesium Hydroxide (Milk Of Magnesia Susp) 30 ml Q12H PRN PO 01/20/17 18:45 02/19/17 18:44 Ondansetron HCl (Zofran Inj) 4 mg Q6H PRN IV 01/20/17 18:45 02/19/17 18:44 Polyethylene (Miralax Powder Packet) 17 gm DAILY PRN PO 01/20/17 18:45 02/19/17 18:44 Clonidine HCl (Catapres Tab) 0.1 mg BID PO 01/20/17 21:00 02/19/17 20:59 01/24/17 08:48 0.1 MG Metoprolol Tartrate (Lopressor Tab) 50 mg BID PO 01/20/17 21:00 02/19/17 20:59 12/3/17 08:48 50 MG Multivitamins (Multivitamin Tab) 1 tab QAM PO 01/21/17 09:00 02/20/17 08:59 01/24/17 08:48 1 TAB Diphenhydramine HCl (Benadryl Cap) 50 mg HS PO 01/20/17 21:00 02/19/17 20:59 01/23/17 20:46 50 MG Mirtazapine (Remeron Tab) 15 mg HS PO 01/20/17 21:00 02/19/17 20:59 01/23/17 20:48 15 MG Vancomycin HCl 1250 mg/Sodium Chloride 275 ml @ 125 mls/hr DAILY@0600 IV 01/21/17 06:00 01/28/17 05:59 01/24/17 06:14 125 MLS/HR Piperacillin Sod/ Tazobactam Sod 3.375 gm/Dextrose 115 ml @ 28.75 mls/ hr Q8H IV 01/21/17 00:00 01/28/17 00:00 01/24/17 16:23 28.75 MLS/HR Nystatin (Mycostatin Susp) 5 ml QID PO 01/20/17 21:00 01/30/17 20:59 01/24/17 12:58 5 ML Acetaminophen (Tylenol Tab) 1,000 mg BID PO 01/20/17 21:00 02/19/17 20:59 01/24/17 08:48 1,000 MG Hydralazine HCl (HydrALAZINE INJ) 10 mg Q6 PRN IV. 01/20/17 19:45 02/19/17 19:44 01/24/17 05:17 10 MG Piperacillin Sod/ Tazobactam Sod (Consult) 1 ea UD PRN N/A 01/20/17 20:30 02/19/17 20:29 Vancomycin HCl (Consult) 1 ea UD PRN N/A 01/20/17 20:45 02/19/17 20:44 Neomycin/ Polymyxin/ Hydrocortisone (Cortisporin Otic Soln) 2 drops TID OT 01/21/17 14:00 02/20/17 13:59 01/24/17 08:48 2 DROPS Carbamide Peroxide (Earwax Removal Soln) 1 drops DAILY PRN OT 01/21/17 11:45 01/25/17 11:44 Heparin Sodium (Porcine) (Heparin 100 Unit/ml 5ml Flush) 5 ml PRN PRN IV 01/22/17 00:15 02/21/17 00:14 01/24/17 05:12 5 ML Hydromorphone HCl (Dilaudid Tab) 2 mg Q6 PRN PO 01/22/17 12:30 02/03/17 18:44 01/23/17 23:03 2 MG Albuterol/ Ipratropium (Combivent Respimat Inh) 1 puffs Q4HWA INH 01/23/17 12:00 02/22/17 11:59 01/24/17 16:23 1 PUFFS Objective Vital Signs Date Time Temp Pulse Resp B/P (MAP) Pulse Ox O2 Delivery O2 Flow Rate FiO2 01/24/17 16:00 Room Air 01/24/17 15:42 36.5 80 18 156/76 (102) 99 Room Air 01/24/17 14:04 74 97 01/24/17 13:26 36.5 74 20 126/73 (90) 97 Room Air 01/24/17 09:00 Room Air 01/24/17 07:19 36.5 112 18 167/84 (111) 98 Room Air 01/24/17 05:09 36.8 93 18 177/83 (114) 97 Room Air 01/24/17 00:20 36.3 79 20 146/72 (96) 95 Room Air 01/24/17 00:00 Room Air 01/23/17 20:00 Room Air 01/23/17 19:46 37.0 118 20 187/87 (120) 97 Room Air Physical Exam General Appearance: WD/WN, no apparent distress Eyes: normal inspection, EOMI, sclerae normal ENT: normal ENT inspection, hearing grossly normal, pharynx normal Neck: supple, no adenopathy, no JVD, trachea midline Respiratory/Chest: chest non-tender, lungs clear, no respiratory distress, no accessory muscle use, + decreased breath sounds (right base) Cardiovascular: regular rate, rhythm, no gallop, no JVD, no murmur Abdomen: normal bowel sounds, non tender, soft, no organomegaly Extremities: normal range of motion, non-tender, normal inspection, no calf tenderness, pelvis stable, + pedal edema Neurologic/Psychiatric: commercial decorator II-XII nml as tested, no motor/sensory deficits, alert, normal mood/affect, oriented x 3 Skin: normal color, warm/dry, no rash Laboratory Results Last 24 Hours Test 01/24/17 00:00 01/24/17 07:39 Urine Color DK YELLOW Urine Appearance TURBID Urine pH 5.0 Urine Specific [place] 1.027 Urine Protein 1+ Urine Glucose (UA) NEG Urine Ketones NEG Urine Occult Blood 2+ Urine Nitrite NEG Urine Bilirubin NEG Urine Urobilinogen NEG Urine Leukocyte Esterase MODERATE Urine WBC (Auto) >30 /hpf Urine RBC (Auto) 5-10 /hpf Urine Hyaline Casts (Auto) 5-10 /lpf Urine Epithelial Cells (Auto) 5-10 /lpf Urine Bacteria (Auto) NEG Urine Yeast (Auto) White Blood Count 30.81 K/uL Red Blood Count 3.32 M/uL Hemoglobin 9.3 g/dL Hematocrit 28.7 % Mean Corpuscular Volume 86.4 fL Mean Corpuscular Hemoglobin 28.0 pg Mean Corpuscular Hemoglobin Concent 32.4 g/dl Platelet Count 241 K/uL Mean Platelet Volume 10.6 fL Neutrophils (%) (Auto) 92.2 % Lymphocytes (%) (Auto) 2.1 % Monocytes (%) (Auto) 4.7 % Eosinophils (%) (Auto) 0.1 % Basophils (%) (Auto) 0.1 % Neutrophils # (Auto) 28.39 K/uL Lymphocytes # (Auto) 0.66 K/uL Monocytes # (Auto) 1.46 K/uL Eosinophils # (Auto) 0.03 K/uL Basophils # (Auto) 0.02 K/uL RDW Standard Deviation 54.4 fL RDW Coefficient of Variation 17.5 % Immature Granulocyte % (Auto) 0.8 % Immature Granulocyte # (Auto) 0.25 K/uL Echinocytes 2+ Sodium Level 139 mmol/L Potassium Level 4.3 mmol/L Chloride Level 107 mmol/L Carbon Dioxide Level 21 mmol/L Anion Gap 11.0 mmol/L Blood Urea Nitrogen 50 mg/dl Creatinine 1.98 mg/dl Est Creatinine Clear Calc Drug Dose 37.3 ml/min Estimated GFR () 38.8 Estimated GFR (Non- 33.5 BUN/Creatinine Ratio 25.1 Random Glucose 96 mg/dl Calcium Level 7.7 mg/dl Assessment and Plan 71 yo male with history of metastatic urothelial cancer to the liver, presented from oncology office with increased shortness of breath and large right pleural effusion - Suspected Sepsis: significant leukocytosis and tachycardia on admission, although no fever unclear source at this time, no growth on blood cultures, urine culture or pleural fluid culture pleural fluid, pH 7.4 thus ruling out empyema and fluid did not appear infected continue broad spectrum antibiotics for now WBC trending up to 30k no abscess or clear signs of infection on CT chest and abdomen/pelvis there is a possibility that he does not have an infection, could be leukemoid reaction to treatment repeat UA today shows >30 WBC will ask infectious disease to weigh in tomorrow - right pleural effusion: work up started 02/20 with thoracentesis for 1250cc no post procedure pneumothorax on CXR LDH and protein high suggesting exudative, cytology still pending, culture with no growth so far lung re-expanded well, no edema, breathing comfortably on room air today with decreased breath sounds, likely some re-accumulation of fluid Dr. Montelongo would like to see in his office in a week - metastatic urothelial cancer: treatment on hold, oncology following CT 01/22 suggests progressive disease despite chemotherapy more lesions and lesions larger in the liver, right kidney larger no definitive lesions in lungs but suspect the effusion is malignant patient going to follow up with Dr. Groves to discuss further options going forward immunotherapy that patient was taking only has a 20-30% response rate - ELLA: Cr at 1.98 today, adequate UO, electrolytes stable discussed case with Dr. Reyes, most likely patient has ATN no further fluids needs follow electrolytes - Right kidney with focus of gas raises question that this could be abscess or emphysematous pyelonephritis no fever, urine culture with no growth Dr. Reyes discussed this with urology service at [facility] [place] that saw patient in the spring when he originally presented at that time he had a focus of gas in the kidney, nephrostomy tube placed to drain what they thought was abscess however, it was determined to be malignancy if patient does not have fever and WBC trends down, would not be aggressive per Dr. Reyes, urology not sure they would place a new drain because unsure this is infection ask infectious disease to weight in tomorrow can call down to speak with urology service at [facility] tomorrow Level 1 he can be discharged home once decision made about possible abscess in right kidney
[2017-01-25] MEDS: PIPERACILL/TAZOBAC IV 3.375 GM in DEXTROSE 5% 100ML 100 ML IV SCH ×3 (00:27→16:00)
[2017-01-25 00:32] VITALS: BP 147/72; PULSE 76; O2SAT 97
[2017-01-25] MEDS: VANCOMYCIN INJ 1,250 MG in SODIUM CHLORIDE 0.9% 250ML 250 ML IV SCH (06:09)
[2017-01-25 07:13] VITALS: BP 165/73; PULSE 96; TEMP 36.7; O2SAT 97
[2017-01-25] MEDS: IPRATROPIUM BROMIDE/ALBUTEROL respimat INH INH SCH ×4 (08:53→20:13)
[2017-01-25] MEDS: METOPROLOL TARTRATE 50 MG TAB PO SCH ×2 (08:55→20:21)
[2017-01-25] MEDS: ACETAMINOPHEN 500 MG TAB PO SCH ×2 (09:00→20:21)
[2017-01-25] MEDS: MULTIVITAMIN TAB PO SCH (09:01)
[2017-01-25] MEDS: CLONIDINE HCL 0.1 MG TAB PO SCH ×2 (09:01→20:20)
[2017-01-25] MEDS: NEOMYCIN/POLYMYX/HYDROCORT OT SOLN 10 ML BTL OT SCH ×3 (09:01→19:36)
[2017-01-25] MEDS: NYSTATIN SUSP 500,000 U/5 ML UDC PO SCH ×4 (09:01→20:00)
[2017-01-25 09:43] LABS: CREATININE 2.17 mg/dl (0.60-1.40); PHOSPHORUS 4.5 mg/dl (2.5-4.9); POTASSIUM 4.7 mmol/L (3.5-5.1)
[2017-01-25 09:44] LABS: HEMATOCRIT 27.1 % (42-52); MEAN CELL VOLUME 86.6 fL (80-100); MEAN CORPUSCULAR HEMOGLOBIN 27.5 pg (25-34); MEAN CORPUSCULAR HGB CONC 31.7 g/dl (32-36); MEAN PLATELET VOLUME 10.1 fL (7.4-10.4); PLATELET COUNT 228 K/uL (130-400); RED BLOOD COUNT 3.13 M/uL (4.7-6.1); WHITE BLOOD COUNT 31.96 K/uL (4.8-10.8)
[2017-01-25 09:48] LABS: ANISOCYTOSIS PRESENT; BASO % 0.1 %; BASO ABS # 0.02 K/uL (0-0.2); COMPLETE YES; DOHLE BODIES 1+; EOS % 0.1 %; HYPERSEGMENTED POLYS 1+; IG% 0.9 %; LYMPH % 2.4 %; LYMPH ABS # 0.78 K/uL (1.2-3.4); MONO % 4.6 %; NEUT % 91.9 %; PLT ESTIMATE NORMAL; TOXIC GRANULATION 1+
--- NOTE | 2017-01-25 10:52 | Nephrology Progress Note ---
Nephrology Progress Note Date of Service Jan 25, 2017. Chief Complaint F/U for ELLA Subjective Mr. Mello was seen and examined in his room with his Jodie at bedside. He has been feeling tired and not able to sleep at night due to nocturia. Denies SOB. has mild rt CVA area pain and discomfort. Renal function stable, continues to have discharge from nephrostomy track, culture pending. Review of Systems A complete review of systems was performed. Pertinent positives are noted above. All other systems are negative. Vital Signs Last 8 Hrs Date Time Temp Pulse Resp B/P (MAP) Pulse Ox O2 Delivery O2 Flow Rate FiO2 01/25/17 09:00 Room Air 01/25/17 07:13 36.7 96 18 165/73 (103) 97 Last Recorded Weight Weight (Kilograms): 84.600 Physical Exam GENERAL: elderly male,, AAA x 3, pleasant, ill-appearing, in mild distress. NECK: Supple, no JVD. RESPIRATORY: Normal breathing efforts, no accessory muscle use, clear to auscultation bilaterally, no wheezes or rales. CARDIOVASCULAR: S1, S2 normal, rate rhythm regular. EXTREMITY: trace b/l lower extremity edema NEURO: speech fluent. PSYCHIATRY: Normal mood and judgment Family History Breast Cancer Kidney disease Social History Smokeless Tobacco Use: No Alcohol Use: none Drug Use: none Marital Status: Housing Status: lives with significant other Occupation: retired Laboratory Results Past 24 Hours Test 01/25/17 08:56 Allergies Coded Allergies: No Known Allergies (Unverified , 01/20/17) Medications Current Inpatient Medications Medications (Trade) Dose Ordered Sig/Cb Route Start Time Stop Time Status Last Admin Dose Admin Acetaminophen (Tylenol Tab) 650 mg Q6H PRN PO 01/20/17 18:45 02/19/17 18:44 01/21/17 14:14 650 MG Al Hydrox/Mg Hydrox/Simethicone (Maalox Max Susp) 15 ml Q4H PRN PO 01/20/17 18:45 02/19/17 18:44 Magnesium Hydroxide (Milk Of Magnesia Susp) 30 ml Q12H PRN PO 01/20/17 18:45 02/19/17 18:44 Ondansetron HCl (Zofran Inj) 4 mg Q6H PRN IV 01/20/17 18:45 02/19/17 18:44 Polyethylene (Miralax Powder Packet) 17 gm DAILY PRN PO 01/20/17 18:45 02/19/17 18:44 Clonidine HCl (Catapres Tab) 0.1 mg BID PO 01/20/17 21:00 02/19/17 20:59 01/25/17 09:01 0.1 MG Metoprolol Tartrate (Lopressor Tab) 50 mg BID PO 01/20/17 21:00 02/19/17 20:59 01/25/17 08:55 50 MG Multivitamins (Multivitamin Tab) 1 tab QAM PO 01/21/17 09:00 02/20/17 08:59 01/25/17 09:01 1 TAB Diphenhydramine HCl (Benadryl Cap) 50 mg HS PO 01/20/17 21:00 02/19/17 20:59 01/24/17 20:48 50 MG Mirtazapine (Remeron Tab) 15 mg HS PO 01/20/17 21:00 02/19/17 20:59 01/24/17 20:48 15 MG Vancomycin HCl 1250 mg/Sodium Chloride 275 ml @ 125 mls/hr DAILY@0600 IV 01/21/17 06:00 01/28/17 05:59 01/25/17 06:09 125 MLS/HR Piperacillin Sod/ Tazobactam Sod 3.375 gm/Dextrose 115 ml @ 28.75 mls/ hr Q8H IV 01/21/17 00:00 01/28/17 00:00 01/25/17 08:53 28.75 MLS/HR Nystatin (Mycostatin Susp) 5 ml QID PO 01/20/17 21:00 01/30/17 20:59 01/25/17 09:01 5 ML Acetaminophen (Tylenol Tab) 1,000 mg BID PO 01/20/17 21:00 02/19/17 20:59 01/25/17 09:00 1,000 MG Hydralazine HCl (HydrALAZINE INJ) 10 mg Q6 PRN IV. 01/20/17 19:45 02/19/17 19:44 01/24/17 05:17 10 MG Piperacillin Sod/ Tazobactam Sod (Consult) 1 ea UD PRN N/A 01/20/17 20:30 02/19/17 20:29 Vancomycin HCl (Consult) 1 ea UD PRN N/A 01/20/17 20:45 02/19/17 20:44 Neomycin/ Polymyxin/ Hydrocortisone (Cortisporin Otic Soln) 2 drops TID OT 01/21/17 14:00 02/20/17 13:59 01/25/17 09:01 2 DROPS Carbamide Peroxide (Earwax Removal Soln) 1 drops DAILY PRN OT 01/21/17 11:45 01/25/17 11:44 Heparin Sodium (Porcine) (Heparin 100 Unit/ml 5ml Flush) 5 ml PRN PRN IV 01/22/17 00:15 02/21/17 00:14 01/25/17 04:27 5 ML Hydromorphone HCl (Dilaudid Tab) 2 mg Q6 PRN PO 01/22/17 12:30 02/03/17 18:44 01/23/17 23:03 2 MG Albuterol/ Ipratropium (Combivent Respimat Inh) 1 puffs Q4HWA INH 01/23/17 12:00 02/22/17 11:59 01/25/17 08:53 1 PUFFS Impression (1) Acute renal insufficiency (2) ATN (acute tubular necrosis) (3) Sepsis (4) Pleural effusion on right (5) Leukocytosis (6) HTN (hypertension) (7) Right renal mass Mr. 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 He has evidence of progressive disease while maintained on atezolizumab. He presented with progressive fatigue, malaise, generalized weakness, dyspnea, cough and possible subjective fever at home. He was admitted with SIRs/suspected sepsis with unclear source of infection. A right pleural effusion has been drained which is exudative by Light's criteria. Cultures from the fluid are negative and cytology is pending. Imaging also reveals persistent changes in the right kidney consistent with a necrotic tumor or abscess. Urine cultures were negative prior to admission. UA had been notable for pyuria, microscopic hematuria and proteinuria. He remains on treatment with vancomycin and Zosyn. Leukocytosis persists but other signs of infection are improving. He remains afebrile. At this time, I would like to repeat urine studies including UA/microscopy and cultures. Once cultures are obtained, ID consult may help guide additional antibiotic therapy. It remains unclear if leukocytosis is a manifestation of infection or a leukemoid reaction. Oncology note was reviewed favoring potential leukemoid reaction, in which case, if urine is clear weaning antibiotics would be appropriate. Overall, renal function is stable. Urine microscopy and clinical history are consistent with ATN. ARSEN inhibitor has been held. Blood pressure and volume status are currently acceptable. He is hypervolemic with increased TBW but I suspect slightly intravascularly dry given hypoalbuminemia. No additional diuretics or IVF are necessary at this time. I discussed adequate fluid intake with the patient and his family. Immune mediated nephritis associated with treatment for malignancy cannot be completely excluded but at this time renal function is stable and mAB therapy has been stopped. No additional management would be considered warranted. I discussed the case with Dr. Venegas again this morning. Ultimately, once results or repeat urine studies are obtained, discussion with Fiordaliza Wang MD (urologist at [facility]) tomorrow would be helpful. Recommendations -- Continue antibiotic pending nephrostomy tube drainage culture, although pyelonephritis seems less likely and right renal imaging abnormality could be due to underlying disease progression as there is no significant improvement in leukocytosis with IV antibiotic --as per patient preference suggest urology consult for further recommendation as patient would like to establish care with [facility] going forward -- Medications are appropriately dosed for renal function -- Vancomycin level should be check daily prior to each dose -- Continue to consider ID consult to help reconcile antibiotics moving forward.
--- NOTE | 2017-01-25 10:56 | Progress Note ---
Progress Note Date of Service Jan 25, 2017. Progress Note ID Consult Dictated #[id number] A/P: 1. Leukocytosis -? malignancy vs infection, concerned for drainage from pcn, culture obtained and is pending but has had many days of abx -suggest urology eval -follow cultures -thank you
--- NOTE | 2017-01-25 11:20 | DIAGNOSTIC IMAGING REPORT ---
CHEST ONE VIEW PORTABLE HISTORY: 71 years-old Male R pleural effusion follow-up study in a patient with pleural effusion COMPARISON: Chest radiograph and chest CT 01/22/2017 TECHNIQUE: Portable AP view of the chest FINDINGS: Left subclavian [id number] catheter is unchanged. Cardiac silhouette is upper limits of normal and also within normal limits. Atherosclerosis of the aorta. Left lung appears clear. No pneumothorax. There is persistent right hemidiaphragm elevation. Mildly increased size of the right pleural effusion with right basilar consolidative opacities. Bones of the chest appear grossly intact. IMPRESSION: Mildly increased size of the right pleural effusion with right basilar consolidative opacities suggesting atelectasis or pneumonitis. The above report was generated using voice recognition software. It may contain grammatical, syntax or spelling errors. Electronically signed by: Ludwin Lynne M.D. 01/25/2017 11:19 AM Dictated Date/Time: 01/25/2017 11:17 AM
--- NOTE | 2017-01-25 12:24 | INFECT. DISEASE CONSULTATION ---
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 He is currently undergoing treatment with chemotherapy. He did have imaging done during this admission, which shows new liver masses suggestive of worsening metastasis. He has had a significant leukocytosis since admission to the hospital. It was 22 on admission and yesterday, it was 30.9. Of note, he had a percutaneous nephrostomy tube, which was removed sometime ago. All his previous urologic care has been provided at [facility]. His is at the bedside and states that initially, the site was without any pain or abnormality; however, he had a fall at home 2 weeks ago and fell on to the right side in the area where his percutaneous nephrostomy tube was and since then, it has been weeping clear drainage. A culture was obtained yesterday and is pending. He has been on vancomycin and Zosyn since admission to the hospital. He has been afebrile since admission to the hospital. Urine culture was sent yesterday and is pending. His lactic acid was normal on admission, but has not been repeated. He also had a pleural fluid and he was evaluated by CT surgery and underwent thoracentesis this admission. His cultures have been negative. His only complaint on my examination today is generalized fatigue. He is anxious to be discharged to home. He denies any shortness of breath or cough. He denies any chest pain. He denies any nausea, vomiting, diarrhea or abdominal pain. He states his appetite is stable. He has not had any urinary symptoms. He did have imaging done of the abdomen and pelvis on the 22 of January, which showed the interval removal of his percutaneous tube with some gas, which was thought to be related to tube removal. Right kidney is enlarged by comparison to previous studies. There was no fluid collection noted. The states he is to have an urology evaluation here and will likely be transferring care to a local urologist. All remaining review of systems is reviewed and is unremarkable. 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 He also has had a percutaneous nephrostomy tube placed on the right which has subsequently been removed. FAMILY HISTORY: Noncontributory. SOCIAL HISTORY: Significant for history of tobacco use. He denies any alcohol or drug use. He is and lives with his . ALLERGIES: He has no known drug allergies. MEDICATIONS: Include Combivent, Dilaudid, subQ heparin, cortisone earwax removal, multivitamins, vancomycin, Catapres, Lopressor, Benadryl, Remeron, Mycostatin, Tylenol, hydralazine, Maalox, milk of magnesia, Zofran and MiraLax. PHYSICAL EXAMINATION: VITAL SIGNS: He is afebrile, pulse 96, respiratory rate 18, blood pressure 165/73, and oxygen saturation is 97% on room air. GENERAL: He is awake, alert and oriented x3. He is in no acute distress. HEENT: Mucous membranes are moist. Extraocular muscles are intact. HEART: Regular. LUNGS: Clear bilaterally. ABDOMEN: Soft and nondistended. EXTREMITIES: There is no lower extremity edema. Examination of his old percutaneous site reveals minimal erythema at the opening. There is an open wound and that is draining cloudy fluid, I am able to express a cloudy drainage from this area. LABORATORY STUDIES: CBC today reveals a white blood cell count of 31.9, hemoglobin 8.6, hematocrit 27.1, and platelets are 228. Chemistry panel reveals sodium 137, potassium 4.7, chloride 107, bicarbonate 21, BUN 54, creatinine 2.1, and glucose was 155. UA had greater than 30 WBCs, but no bacteria. Vancomycin trough is 16.9. Culture from the percutaneous site has moderate WBCs, no organisms and culture is pending. Urine culture is received and pending. Thoracentesis culture from the 30 is negative. His AFB smear is negative. IMAGING: As above. ASSESSMENT AND PLAN: Leukocytosis. Certainly this could be a result of worsening metastasis to the liver; however, with an open wound that is draining, a culture should be obtained. He will remain on antibiotics pending the results of this culture. Thank you for this consultation.
--- NOTE | 2017-01-25 12:45 | Urology Consultation ---
History General Date of Service: Jan 25, 2017. Chief Complaint: drainage from previous perc tube site Primary Care Physician: Agustín Groves D.O. Pt seen a urologist before?: Yes (Dr. Wang- [facility] urology) If yes, why?: urothelial carcinoma History of Present Illness 71 yo male with metastatic urothelial carcinoma referred to [facility] by Dr. Groves last week for generalized illness. Noted to have a large right pleural effusion on CT on admission. The pt primarily follows with Dr. Wang at [facility] urology for metastatic urothelial carcinoma to the liver. The complete details of this are uncertain, and records attempting to be obtained. Per Dr. Serrano, it seems his primary cancer may be upper tract. Unclear as to whether he has had any surgery for the cancer, but is noted to be receiving atezolizumab. The pt does wish to transfer his care to Dr. Herman Nunez as both he and his feel it is too far to continue traveling to [place] for his treatments. [facility] [place] [place] consulted this hospital visit as the pt has persistent leukocytosis and no improvement in symptoms since admission and receiving abx. He does have a hx of PCN placement for hydro on the right over the summer. He reports the tube was removed 2 months ago, and he was doing well until a fall 2 weeks ago during the night. Per his , she reports he has had blood and drainage from the tract since that time. The pt reports baseline nocturia q45 minutes a night not allowing him to get any sleep. He was getting up to void after a change in his Ambien dosage when he fell. He denies ever trying anything such as an anticholinergic or alpha sandra for his frequency. He is currently afebrile. White count is 31.96. Cr has risen slightly to 2.17. CT scan from 01-22 showing: "Status post removal of the right percutaneous nephrostomy tube with interval enlargement of the right kidney, expanded by abnormal low density material. This could be compatible with the known urothelial carcinoma. Superimposed infection cannot be excluded. The focus of gas within this material is presumed to be secondary to recent removal of the percutaneous approximately tube. If this is more remote, gas would raise concern for infection/emphysematous nephritis. Correlate clinically." Imaging Imaging: CT Laboratory Last 24 Hours Test 01/25/17 08:56 White Blood Count 31.96 K/uL Red Blood Count 3.13 M/uL Hemoglobin 8.6 g/dL Hematocrit 27.1 % Mean Corpuscular Volume 86.6 fL Mean Corpuscular Hemoglobin 27.5 pg Mean Corpuscular Hemoglobin Concent 31.7 g/dl Platelet Count 228 K/uL Mean Platelet Volume 10.1 fL Neutrophils (%) (Auto) 91.9 % Lymphocytes (%) (Auto) 2.4 % Monocytes (%) (Auto) 4.6 % Eosinophils (%) (Auto) 0.1 % Basophils (%) (Auto) 0.1 % Neutrophils # (Auto) 29.37 K/uL Lymphocytes # (Auto) 0.78 K/uL Monocytes # (Auto) 1.48 K/uL Eosinophils # (Auto) 0.02 K/uL Basophils # (Auto) 0.02 K/uL RDW Standard Deviation 55.3 fL RDW Coefficient of Variation 17.9 % Immature Granulocyte % (Auto) 0.9 % Immature Granulocyte # (Auto) 0.29 K/uL Hypersegmented Polys 1+ Toxic Granulation 1+ Dohle Bodies 1+ Platelet Estimate NORMAL Anisocytosis PRESENT Sodium Level 137 mmol/L Potassium Level 4.7 mmol/L Chloride Level 107 mmol/L Carbon Dioxide Level 21 mmol/L Anion Gap 10.0 mmol/L Blood Urea Nitrogen 54 mg/dl Creatinine 2.17 mg/dl Est Creatinine Clear Calc Drug Dose 34.0 ml/min Estimated GFR () 34.7 Estimated GFR (Non- 30.0 BUN/Creatinine Ratio 25.0 Random Glucose 155 mg/dl Calcium Level 8.0 mg/dl Phosphorus Level 4.5 mg/dl Albumin 1.3 gm/dl Thyroid Stimulating Hormone (TSH) 2.290 uIu/ml Problem List Medical Problems: (1) Anemia Status: Acute (2) ARF (acute renal failure) Status: Acute (3) Drug-induced encephalopathy Status: Acute (4) Fall at home Status: Acute (5) Leukocytosis Status: Acute (6) Leukocytosis Status: Acute (7) Pleural effusion Status: Acute (8) Pneumonia Status: Acute (9) Renal failure Status: Acute (10) UTI (urinary tract infection) Status: Acute Past History hypertension, kidney stones, pneumonia, urinary tract infection, other ( urothelial carcinoma metastatic to liver, chronic anemia, prolonged QT, left meniscus tear) Past Surgical History: orthopedic surgery (repair left meniscus), other (PCN placement) Family History Breast Cancer Kidney disease Social History Hx Tobacco Use In Past Year?: No (QUIT 30 YRS AGO) Smoking: other (former smoker) Alcohol: never Drug use: none Marital status: Housing status: lives with significant other Occupation status: retired Allergies Coded Allergies: No Known Allergies (Unverified , 01/20/17) Medications Home Medications: Home Meds and Scripts Medications Dose Route/Sig Max Daily Dose Days Date Category Diphenhydramine Hcl 50 Mg Cap 50 Mg PO HS 01/20/17 Reported Micro-K Ext Rel (Potassium Chloride) 10 Meq Capcr 10 Meq PO DAILY 01/07/17 Reported Remeron Soltab (Mirtazapine) 15 Mg Soltab 15 Mg PO HS 12/21/16 Reported Lopressor (Metoprolol Tartrate) 50 Mg Tab 50 Mg PO BID 10/23/16 Reported Catapres (Clonidine Hcl) 0.1 Mg Tab 0.1 Mg PO BID 10/23/16 Reported Cipro (Ciprofloxacin) 250 Mg Tab 500 Tab PO BID 10/12/16 Reported One Daily (Multiple Vitamin) 1 Tab Tab 1 Tab PO QAM 09/21/16 Reported Dilaudid (Hydromorphone Hcl) 4 Mg Tab 4 Mg PO Q6 PRN 09/21/16 Reported Zestril (Lisinopril) 30 Mg Tab 30 Mg PO QAM 09/21/16 Reported Inpatient Medications: Current Inpatient Medications Medications (Trade) Dose Ordered Sig/Cb Route Start Time Stop Time Status Last Admin Dose Admin Acetaminophen (Tylenol Tab) 650 mg Q6H PRN PO 01/20/17 18:45 02/19/17 18:44 01/21/17 14:14 650 MG Al Hydrox/Mg Hydrox/Simethicone (Maalox Max Susp) 15 ml Q4H PRN PO 01/20/17 18:45 02/19/17 18:44 Magnesium Hydroxide (Milk Of Magnesia Susp) 30 ml Q12H PRN PO 01/20/17 18:45 02/19/17 18:44 Ondansetron HCl (Zofran Inj) 4 mg Q6H PRN IV 01/20/17 18:45 02/19/17 18:44 Polyethylene (Miralax Powder Packet) 17 gm DAILY PRN PO 01/20/17 18:45 02/19/17 18:44 Clonidine HCl (Catapres Tab) 0.1 mg BID PO 01/20/17 21:00 02/19/17 20:59 01/25/17 09:01 0.1 MG Metoprolol Tartrate (Lopressor Tab) 50 mg BID PO 01/20/17 21:00 02/19/17 20:59 01/25/17 08:55 50 MG Multivitamins (Multivitamin Tab) 1 tab QAM PO 01/21/17 09:00 02/20/17 08:59 01/25/17 09:01 1 TAB Diphenhydramine HCl (Benadryl Cap) 50 mg HS PO 01/20/17 21:00 02/19/17 20:59 01/24/17 20:48 50 MG Mirtazapine (Remeron Tab) 15 mg HS PO 01/20/17 21:00 02/19/17 20:59 01/24/17 20:48 15 MG Vancomycin HCl 1250 mg/Sodium Chloride 275 ml @ 125 mls/hr DAILY@0600 IV 01/21/17 06:00 01/28/17 05:59 01/25/17 06:09 125 MLS/HR Piperacillin Sod/ Tazobactam Sod 3.375 gm/Dextrose 115 ml @ 28.75 mls/ hr Q8H IV 01/21/17 00:00 01/28/17 00:00 01/25/17 08:53 28.75 MLS/HR Nystatin (Mycostatin Susp) 5 ml QID PO 01/20/17 21:00 01/30/17 20:59 01/25/17 09:01 5 ML Acetaminophen (Tylenol Tab) 1,000 mg BID PO 01/20/17 21:00 02/19/17 20:59 01/25/17 09:00 1,000 MG Hydralazine HCl (HydrALAZINE INJ) 10 mg Q6 PRN IV. 01/20/17 19:45 02/19/17 19:44 01/24/17 05:17 10 MG Piperacillin Sod/ Tazobactam Sod (Consult) 1 ea UD PRN N/A 01/20/17 20:30 12/29/17 20:29 Vancomycin HCl (Consult) 1 ea UD PRN N/A 01/20/17 20:45 02/19/17 20:44 Neomycin/ Polymyxin/ Hydrocortisone (Cortisporin Otic Soln) 2 drops TID OT 01/21/17 14:00 02/20/17 13:59 01/25/17 09:01 2 DROPS Heparin Sodium (Porcine) (Heparin 100 Unit/ml 5ml Flush) 5 ml PRN PRN IV 01/22/17 00:15 02/21/17 00:14 01/25/17 04:27 5 ML Hydromorphone HCl (Dilaudid Tab) 2 mg Q6 PRN PO 01/22/17 12:30 02/03/17 18:44 01/23/17 23:03 2 MG Albuterol/ Ipratropium (Combivent Respimat Inh) 1 puffs Q4HWA INH 01/23/17 12:00 02/22/17 11:59 01/25/17 08:53 1 PUFFS Review of Systems Review of Systems Constitutional: No fever, No chills Eyes: No double vision Neurological: No dizzy Endocrine: No excessive thirst Gastrointestinal: No abdominal pain, No nausea, No vomiting Cardiovascular: No chest pain Respiratory: No shortness of breath Skin: No rash Musculoskeletal: + arthritis, No back pain Male : + frequent urination, No painful urination, No blood in urine Physical Exam Vital Signs: Vital Signs Past 12 Hours Date Time Temp Pulse Resp B/P (MAP) Pulse Ox O2 Delivery O2 Flow Rate FiO2 01/25/17 09:00 Room Air 01/25/17 07:13 36.7 96 18 165/73 (103) 97 01/25/17 00:32 76 20 147/72 (97) 97 Physical Exam: General Appearance: no apparent distress Eyes: bilateral eyes normal inspection ENT: hearing grossly normal Neck: no JVD Respiratory/Chest: no respiratory distress, no accessory muscle use Cardiovascular: no JVD Extremities: normal inspection Neurologic/Psychiatric: alert, normal mood/affect, oriented x 3 Skin: normal color Assessment & Plan Assessment & Plan A/P: Leukocytosis, urothelial carcinoma metastatic to liver, nocturia CT and leukocytosis concerning for progressive cancer vs infection of the right kidney. Wound culture preliminarily negative. Reviewed numerous CT scans including contrast film from July [address] Nunez this afternoon. Films showing progression of metastatic disease. Drainage from PCN tract site and leukocytosis seems most consistent with progression of disease rather than infectious process. It seems his nocturia is the primary factor in his inability to sleep rather than a sleeping disorder. Will check bladder scans qshift and plan to start him on Flomax this evening. Would also add an anticholinergic if bladder scans normal. Thanks for the consult. Will continue to follow along with primary service. A/P PM rounds - patient seen PM Jan 25. in room. Prior notes, MANAGER MATERIAL notes reviewed. Patient presented with acute on chronic fatigue, anemia requiring regular transfusions, drainage from prior PCN site - originally atypical appearance of R renal TCC with mets felt to possibly be c/w abscess, period of drainage with PCN on presentation. Patient has remained afebrile throughout his recent history , no f/c/clear flank pain. Fatigued, thin. Lengthy discussion with patient and . Not suspicious of infectious process in R kidney - appearance consistent with prior imaging going back to presentation in Jul 2016, no clear s/s infectious process, unimproved with antibiotics. Suspect progression of his aggressive, metastatic malignancy. No indications for surgical intervention at this time, palliative or otherwise. Will follow with primary service. Patient wishes to transfer his care locally - will plan on OV in ~ 4-6 weeks if doing all right.
[2017-01-25] MEDS ORDERED: NURSING DECISION MEDICATION ORDER SCH (13:45)
[2017-01-25] MEDS ORDERED: BOOST VANILLA PO SCH ×4 (14:45→17:00)
--- NOTE | 2017-01-25 15:53 | Hospitalist Progress Note ---
Hospitalist Progress Note Date of Service Jan 25, 2017. (April Farrar ., JUAN) Subjective Pt evaluation today including: conversation w/ patient, conversation w/ family ( at bedside ), physical exam, lab review, review of studies, review of inpatient medication list Patient resting in bed. Eating and drinking OK. Denies any new complaints. +urinary frequency. +lower extremity edema. Patient denies any fever, chills, sweats, lightheadedness, dizziness, vision changes, CP, palpitations, SOB, wheezing, cough, abdominal pain, nausea, vomiting, diarrhea, melena, numbness/tingling, weakness, muscle/joint pain, anxiety/depression, active bleeding, or new skin discoloration/changes. (April Farrar ., JONGC) Medications Current Inpatient Medications Medications (Trade) Dose Ordered Sig/Cb Route Start Time Stop Time Status Last Admin Dose Admin Acetaminophen (Tylenol Tab) 650 mg Q6H PRN PO 01/20/17 18:45 02/19/17 18:44 01/21/17 14:14 650 MG Al Hydrox/Mg Hydrox/Simethicone (Maalox Max Susp) 15 ml Q4H PRN PO 01/20/17 18:45 02/19/17 18:44 Magnesium Hydroxide (Milk Of Magnesia Susp) 30 ml Q12H PRN PO 01/20/17 18:45 02/19/17 18:44 Ondansetron HCl (Zofran Inj) 4 mg Q6H PRN IV 01/20/17 18:45 02/19/17 18:44 Polyethylene (Miralax Powder Packet) 17 gm DAILY PRN PO 01/20/17 18:45 02/19/17 18:44 Clonidine HCl (Catapres Tab) 0.1 mg BID PO 01/20/17 21:00 02/19/17 20:59 01/25/17 09:01 0.1 MG Metoprolol Tartrate (Lopressor Tab) 50 mg BID PO 01/20/17 21:00 02/19/17 20:59 01/25/17 08:55 50 MG Multivitamins (Multivitamin Tab) 1 tab QAM PO 01/21/17 09:00 02/20/17 08:59 01/25/17 09:01 1 TAB Diphenhydramine HCl (Benadryl Cap) 50 mg HS PO 01/20/17 21:00 02/19/17 20:59 01/24/17 20:48 50 MG Mirtazapine (Remeron Tab) 15 mg HS PO 01/20/17 21:00 02/19/17 20:59 01/24/17 20:48 15 MG Vancomycin HCl 1250 mg/Sodium Chloride 275 ml @ 125 mls/hr DAILY@0600 IV 01/21/17 06:00 01/28/17 05:59 01/25/17 06:09 125 MLS/HR Piperacillin Sod/ Tazobactam Sod 3.375 gm/Dextrose 115 ml @ 28.75 mls/ hr Q8H IV 01/21/17 00:00 01/28/17 00:00 01/25/17 08:53 28.75 MLS/HR Nystatin (Mycostatin Susp) 5 ml QID PO 01/20/17 21:00 01/30/17 20:59 01/25/17 12:16 5 ML Acetaminophen (Tylenol Tab) 1,000 mg BID PO 01/20/17 21:00 02/19/17 20:59 01/25/17 09:00 1,000 MG Hydralazine HCl (HydrALAZINE INJ) 10 mg Q6 PRN IV. 01/20/17 19:45 02/19/17 19:44 01/24/17 05:17 10 MG Piperacillin Sod/ Tazobactam Sod (Consult) 1 ea UD PRN N/A 01/20/17 20:30 02/19/17 20:29 Vancomycin HCl (Consult) 1 ea UD PRN N/A 01/20/17 20:45 02/19/17 20:44 Neomycin/ Polymyxin/ Hydrocortisone (Cortisporin Otic Soln) 2 drops TID OT 01/21/17 14:00 02/20/17 13:59 01/25/17 09:01 2 DROPS Heparin Sodium (Porcine) (Heparin 100 Unit/ml 5ml Flush) 5 ml PRN PRN IV 01/22/17 00:15 02/21/17 00:14 01/25/17 04:27 5 ML Hydromorphone HCl (Dilaudid Tab) 2 mg Q6 PRN PO 01/22/17 12:30 02/03/17 18:44 12/2/17 23:03 2 MG Albuterol/ Ipratropium (Combivent Respimat Inh) 1 puffs Q4HWA INH 01/23/17 12:00 02/22/17 11:59 01/25/17 08:53 1 PUFFS Tamsulosin HCl (Flomax Cap) 0.4 mg HS PO 01/25/17 21:00 02/24/17 20:59 Enteral Nutritional Formula (Boost) 1 can BIDM PO 01/25/17 17:00 02/24/17 16:59 Enteral Nutritional Formula (Boost) 1 can TODAY@1445 PO 01/25/17 14:45 01/25/17 16:00 Oxybutynin Chloride (Ditropan Tab) 5 mg BID PO 01/25/17 20:00 02/24/17 19:59 (April Farrar, URMILA-C) Objective Vital Signs Date Time Temp Pulse Resp B/P (MAP) Pulse Ox O2 Delivery O2 Flow Rate FiO2 01/25/17 09:00 Room Air 01/25/17 07:13 36.7 96 18 165/73 (103) 97 01/25/17 00:32 76 20 147/72 (97) 97 01/25/17 00:00 Room Air 01/24/17 20:00 Room Air 01/24/17 19:28 36.7 107 18 155/77 (103) 96 Room Air 01/24/17 16:00 Room Air 01/24/17 15:42 36.5 80 18 156/76 (102) 99 Room Air (April Farrar PA-C) Physical Exam General Appearance: no apparent distress Eyes: normal inspection, PERRL ENT: hearing grossly normal Neck: supple Respiratory/Chest: lungs clear, no respiratory distress, no accessory muscle use, + decreased breath sounds (R lung base ) Cardiovascular: regular rate, rhythm Abdomen: normal bowel sounds, non tender, soft Extremities: no calf tenderness, + pedal edema Neurologic/Psychiatric: alert, normal mood/affect, oriented x 3 Skin: normal color, warm/dry, no rash (April Farrar, PA-C) Laboratory Results Last 24 Hours Test 01/25/17 08:56 White Blood Count 31.96 K/uL Red Blood Count 3.13 M/uL Hemoglobin 8.6 g/dL Hematocrit 27.1 % Mean Corpuscular Volume 86.6 fL Mean Corpuscular Hemoglobin 27.5 pg Mean Corpuscular Hemoglobin Concent 31.7 g/dl Platelet Count 228 K/uL Mean Platelet Volume 10.1 fL Neutrophils (%) (Auto) 91.9 % Lymphocytes (%) (Auto) 2.4 % Monocytes (%) (Auto) 4.6 % Eosinophils (%) (Auto) 0.1 % Basophils (%) (Auto) 0.1 % Neutrophils # (Auto) 29.37 K/uL Lymphocytes # (Auto) 0.78 K/uL Monocytes # (Auto) 1.48 K/uL Eosinophils # (Auto) 0.02 K/uL Basophils # (Auto) 0.02 K/uL RDW Standard Deviation 55.3 fL RDW Coefficient of Variation 17.9 % Immature Granulocyte % (Auto) 0.9 % Immature Granulocyte # (Auto) 0.29 K/uL Hypersegmented Polys 1+ Toxic Granulation 1+ Dohle Bodies 1+ Platelet Estimate NORMAL Anisocytosis PRESENT Sodium Level 137 mmol/L Potassium Level 4.7 mmol/L Chloride Level 107 mmol/L Carbon Dioxide Level 21 mmol/L Anion Gap 10.0 mmol/L Blood Urea Nitrogen 54 mg/dl Creatinine 2.17 mg/dl Est Creatinine Clear Calc Drug Dose 34.0 ml/min Estimated GFR () 34.7 Estimated GFR (Non- 30.0 BUN/Creatinine Ratio 25.0 Random Glucose 155 mg/dl Calcium Level 8.0 mg/dl Phosphorus Level 4.5 mg/dl Albumin 1.3 gm/dl Thyroid Stimulating Hormone (TSH) 2.290 uIu/ml (April Farrar, PA-C) Assessment and Plan 71 y/o male with history of metastatic urothelial cancer to the liver, presented from oncology office with increased shortness of breath and large right pleural effusion Suspected sepsis w/ significant leukocytosis and tachycardia on admission, although no fever or clear source- ?infection vs leukemoid reaction: - Admitted to tele- transferred to med/surg - BCx, UCx, pleural fluid, PCN drainage- NGTD - No abscess or clear signs of infection on CT chest and abdomen/pelvis - Continue IV Zosyn + Vancomycin - ID consulted- recommending no antibiotic at discharge Right pleural effusion s/p thoracentesis on 02/20 for 1250cc: Follow-up w/ Dr. Montelongo in 1 week Metastatic urothelial cancer- treatment on hold: - CT 01/22 suggests progressive disease despite chemotherapy -- More lesions and lesions larger in the liver, right kidney larger -- No definitive lesions in lungs but suspect the effusion is malignant - Follow-up w/ Dr. Groves as scheduled this week ELLA, ?secondary to ATN- Cr at 2.17 today: Nephrology following Right kidney with focus of gas, ?abscess vs emphysematous pyelonephritis vs disease progression: - Urology consulted- believe to be progression of disease rather then infection. Discussed w/ ID- no antibiotic indicated at discharge Urinary frequency: - UCx negative - Bladder scanned- post residual void WNL- urology suggest Flomax 0.4 mg daily and Oxybutynin 5 mg BID Bilateral lower extremity edema: Denies want further workup such as venous Doppler US HTN: Continue Catapres 0.1 mg BID, Lopressor 50 mg BID, Lisinopril 30 mg daily Code Status: LEVEL I, FULL Dispo: Likely discharge to home tomorrow - Will need f/u w/ Dr. Montelongo in 1 week - f/u w/ Dr. Groves as already scheduled for this week (April Farrar PA-C) Reviewed: Pt Seen/Exam by Me (Leila Serrano MD) History Physician Firesetter Supervision Note: I interviewed and examined the patient. Discussed with URMILA Farrar and agree with findings and plan as documented in the note. Any exceptions or clarifications are listed here: Patient has some pain in the right flank and continued small amount of yellow drainage from his previous percutaneous nephrostomy tube site. I discussed the case with urology as well as infectious disease today. Patient's biggest complaint is fatigue from not being able to sleep due to urinary frequency every 45 minutes for the last 2 months. He had very minimal post void residuals today. Patient denies shortness of breath or chest pain. He has been ambulating to the bathroom and back. Denies lightheadedness Vital signs reviewed Chronically ill-appearing Regular rate and rhythm, no murmurs gallops or rubs Lungs with decreased breath sounds at the right lower and middle lung almeida, otherwise fairly clear except for some faint wheezes scattered Abdomen positive bowel sounds, soft nontender nondistended with some tenderness over the right flank Skin right flank with dressing with small amount of yellow slightly purulent fluid, dressing over right thorax from previous thoracentesis is clean dry and intact Extremities-bilateral 2+ pitting edema, no calf tenderness This patient is a 71-year-old male with metastatic urothelial cancer with metastases to the liver who presented with shortness of breath and large right- sided pleural effusion and worsening leukocytosis, suspected sepsis. Remains afebrile, WBC count remains elevated but is stable around 30. Will not likely need antibiotics other than his chronic suppressive Cipro at the time of discharge. For his urinary frequency, he will be started on oxybutynin as well as Flomax as per my discussion with urology. Urology feels that the drainage from his previous percutaneous nephrostomy site is due to progression of his cancer that is within the right kidney as it enlarges based on review of the CT scans he has had at this facility; they do not feel it is infected. His white blood cell count remains high but stable and is likely due to leukemoid reaction at this point from progression of his metastatic disease. He will follow-up with oncology this Wednesday. He also needs follow-up with thoracic surgery in case of need for future recurrent drainage of his pleural effusion which is not malignant as per pathology. Patient with severe hypoalbuminemia which is likely contributing to his lower extremity edema, however he very well could have a DVT-I offered to perform bilateral venous Doppler and patient is declining further testing at this time- he is growing weary. Depending on further oncology treatment plan, likely needs palliative care consult in the near future. Discussed all of this with the patient and his at the bedside. Documented By: Leila Serrano (Leila Serrano MD)
[2017-01-25 16:00] VITALS: O2SAT 97
[2017-01-25] MEDS: BOOST VANILLA PO SCH ×2 (16:02)
[2017-01-25 16:14] VITALS: BP 162/81; PULSE 85; TEMP 36.3; O2SAT 98
[2017-01-25] MEDS ORDERED: NURSING VERBAL MED ORDER ONE (17:00)
--- NOTE | 2017-01-25 17:02 | HEME/ONC PROGRESS NOTE ---
DATE: 01/25/2017 DIAGNOSES: 1. Metastatic urothelial carcinoma. 2. Declining performance status. 3. Pleural effusion. 4. Lower extremity edema. 5. Profound anemia. SUBJECTIVE: Sancho is a pleasant 71-year-old gentleman, currently under Dr. Groves's care for metastatic urothelial cancer. The patient had been undergoing immunotherapy with Tecentriq, last dose administered on January 08. Since that final dose, he had reported dyspnea on exertion, cough, chills, and generalized weakness with increase in lower extremity edema. Because of these symptoms, he was summoned to the Emergency Room and continues on supportive therapy. He underwent thoracentesis during this admission, which apparently yielded a liter and a half of pleural fluid, which reportedly was not malignant. He continues to be minimally active and is due to see Dr. Groves on Wednesday as outpatient. According to the patient's , he is pending discharge tomorrow. PHYSICAL EXAMINATION: VITAL SIGNS: Temperature 36.7, pulse 96, respirations 18, and blood pressure 165/73. SKIN: Without rash or lesion. HEENT: Oral mucosa without erythema or ulceration. HEART: Regular rate and rhythm. No clicks, rubs or murmurs. LUNGS: Clear to auscultation bilaterally. ABDOMEN: Soft, nontender, and nondistended. EXTREMITIES: 2+ peripheral edema bilaterally. NEUROLOGIC: Grossly intact. LABORATORY DATA: WBC count 31,960, hemoglobin 8.6, platelet count 228,000, and absolute neutrophil count 29,370. Sodium 137, potassium 4.7, chloride 107, carbon dioxide 21, creatinine 2.17, and BUN 54. Albumin 1.3. IMPRESSION: 1. Declining performance status. 2. Hypoalbuminemia. 3. Acute renal injury. 4. Metastatic urothelial carcinoma. 5. Nonmalignant pleural effusion. 6. Profound normocytic normochromic anemia attributable to chemotherapy effect. 7. Leukocytosis (predominant neutrophilia). PLAN: Sancho again is under the care of Dr. Groves and was admitted for the above symptomatology. His progress has been slow and ultimately needs to be decided how to proceed from here. He is in significant decline with an albumin that probably cannot afford further insult. Would consider albumin replacement therapy over the next day or two to it is level up closer to 2 and may be create some shift in the interstitial fluids/edema. I will leave it up to the discretion of Dr. Groves on how he proceeds with further treatment. I have nothing further to add and will continue to follow him periodically throughout his hospital stay.
[2017-01-25 17:55] VITALS: BP 170/83; PULSE 111; TEMP 36.9; O2SAT 95
[2017-01-25] MEDS ORDERED: ALBUMIN HUMAN 25% 12.5 GM/50 ML VIAL IV SCH (18:00)
[2017-01-25 20:00] VITALS: BP 156/77; PULSE 110; TEMP 36.2; O2SAT 97
[2017-01-25] MEDS: OXYBUTYNIN CHLORIDE 5 MG TAB PO SCH (20:20)
[2017-01-25] MEDS: TAMSULOSIN HCL 0.4 MG CAP PO SCH (20:22)
[2017-01-25] MEDS: MIRTAZAPINE TAB 15 MG TAB PO SCH (20:22)
[2017-01-26] VITALS (7 sets, daily range): BP systolic 128–174; BP diastolic 58–87; PULSE 80–106; TEMP 36–36.5; O2SAT 91–99
[2017-01-26] MEDS: PIPERACILL/TAZOBAC IV 3.375 GM in DEXTROSE 5% 100ML 100 ML IV SCH ×2 (00:16→08:55)
[2017-01-26] MEDS: VANCOMYCIN INJ 1,250 MG in SODIUM CHLORIDE 0.9% 250ML 250 ML IV SCH (05:15)
[2017-01-26] MEDS ORDERED: VANCOMYCIN TROUGH SCH (05:30)
[2017-01-26] MEDS: ALBUMIN HUMAN 25% 12.5 GM/50 ML VIAL IV SCH (07:51)
[2017-01-26] MEDS ORDERED: ALBUMIN HUMAN 25% 12.5 GM/50 ML VIAL IV SCH (08:00)
[2017-01-26] MEDS: NEOMYCIN/POLYMYX/HYDROCORT OT SOLN 10 ML BTL OT SCH ×3 (08:00→21:20)
[2017-01-26] MEDS: IPRATROPIUM BROMIDE/ALBUTEROL respimat INH INH SCH ×4 (08:03→21:19)
[2017-01-26] MEDS: CLONIDINE HCL 0.1 MG TAB PO SCH ×2 (08:04→21:22)
[2017-01-26] MEDS: OXYBUTYNIN CHLORIDE 5 MG TAB PO SCH ×2 (08:04→21:22)
[2017-01-26] MEDS: MULTIVITAMIN TAB PO SCH (08:04)
[2017-01-26] MEDS: NYSTATIN SUSP 500,000 U/5 ML UDC PO SCH ×4 (08:04→20:00)
[2017-01-26] MEDS: METOPROLOL TARTRATE 50 MG TAB PO SCH ×2 (08:04→21:24)
--- NOTE | 2017-01-26 08:23 | Progress Note ---
Subjective Date of Service: Jan 26, 2017. Subjective Pt evaluation today including: conversation w/ patient, chart review, lab review Pt denies pain this morning. He was started on Flomax and oxybutynin last evening. Continues to experience nocturia preventing him from sleeping well at night. Denies dysuria or hematuria. PVRs have been acceptable. Problem List Medical Problems: (1) Anemia Status: Acute (2) ARF (acute renal failure) Status: Acute (3) Drug-induced encephalopathy Status: Acute (4) Fall at home Status: Acute (5) Leukocytosis Status: Acute (6) Leukocytosis Status: Acute (7) Pleural effusion Status: Acute (8) Pneumonia Status: Acute (9) Renal failure Status: Acute (10) UTI (urinary tract infection) Status: Acute Review of Systems Constitutional: No fever, No chills Respiratory: No shortness of breath Cardiac: No chest pain Abdomen: No pain, No nausea, No vomiting Male : + urinary frequency, + nocturia more than once/night, No dysuria, No hematuria Heme: No abnormal bleeding/bruising Objective Vital Signs Date Time Temp Pulse Resp B/P (MAP) Pulse Ox O2 Delivery O2 Flow Rate FiO2 01/26/17 08:04 36.0 106 22 157/85 (109) 98 Room Air 01/26/17 04:21 36.4 101 24 174/78 (110) 91 Room Air 01/26/17 00:00 36.3 80 16 128/58 (81) 98 01/26/17 00:00 Room Air 01/25/17 20:00 36.2 110 20 156/77 (103) 97 Room Air 01/25/17 17:55 36.9 111 20 170/83 (112) 95 Room Air 01/25/17 16:14 36.3 85 18 162/81 (108) 98 01/25/17 16:00 97 Room Air 01/25/17 09:00 Room Air Physical Exam General Appearance: no apparent distress Eyes: normal inspection ENT: hearing grossly normal Neck: no JVD Respiratory/Chest: no respiratory distress, no accessory muscle use Cardiovascular: no JVD Extremities: normal inspection Neurologic/Psychiatric: alert, normal mood/affect, oriented x 3 Skin: normal color Laboratory Results Last 24 Hours Test 01/25/17 08:56 01/26/17 04:55 01/26/17 06:52 White Blood Count 31.96 K/uL Red Blood Count 3.13 M/uL Hemoglobin 8.6 g/dL Hematocrit 27.1 % Mean Corpuscular Volume 86.6 fL Mean Corpuscular Hemoglobin 27.5 pg Mean Corpuscular Hemoglobin Concent 31.7 g/dl Platelet Count 228 K/uL Mean Platelet Volume 10.1 fL Neutrophils (%) (Auto) 91.9 % Lymphocytes (%) (Auto) 2.4 % Monocytes (%) (Auto) 4.6 % Eosinophils (%) (Auto) 0.1 % Basophils (%) (Auto) 0.1 % Neutrophils # (Auto) 29.37 K/uL Lymphocytes # (Auto) 0.78 K/uL Monocytes # (Auto) 1.48 K/uL Eosinophils # (Auto) 0.02 K/uL Basophils # (Auto) 0.02 K/uL RDW Standard Deviation 55.3 fL RDW Coefficient of Variation 17.9 % Immature Granulocyte % (Auto) 0.9 % Immature Granulocyte # (Auto) 0.29 K/uL Hypersegmented Polys 1+ Toxic Granulation 1+ Dohle Bodies 1+ Platelet Estimate NORMAL Anisocytosis PRESENT Sodium Level 137 mmol/L Potassium Level 4.7 mmol/L Chloride Level 107 mmol/L Carbon Dioxide Level 21 mmol/L Anion Gap 10.0 mmol/L Blood Urea Nitrogen 54 mg/dl Creatinine 2.17 mg/dl Est Creatinine Clear Calc Drug Dose 34.0 ml/min Estimated GFR () 34.7 Estimated GFR (Non- 30.0 BUN/Creatinine Ratio 25.0 Random Glucose 155 mg/dl Calcium Level 8.0 mg/dl Phosphorus Level 4.5 mg/dl Albumin 1.3 gm/dl Thyroid Stimulating Hormone (TSH) 2.290 uIu/ml Vancomycin Level Trough 27.0 mcg/ml Assessment and Plan A/P: Metastatic urothelial carcinoma, nocturia Labs pending this AM. Discussed with the pt that it can take up to 2-4 weeks for symptom improvement with Flomax and oxybutynin. Will continue for now, and hope for symptom improvement sooner rather than later. Discussed SEs of oxybutynin as well. Pt's leukocytosis and drainage from old PCN tube site most consistent with progression of disease rather than infectious process. No surgical interventions planned at this time. The pt plans to transfer his urologic care to Dr. Nunez. Will arrange for outpatient f/u with him. Will continue to follow along with primary service.
[2017-01-26] MEDS: BOOST VANILLA PO SCH ×4 (08:55→18:51)
[2017-01-26] MEDS: ACETAMINOPHEN 500 MG TAB PO SCH ×2 (08:55→21:23)
--- NOTE | 2017-01-26 09:00 | HEME/ONC PROGRESS NOTE ---
DATE: 01/26/2017 DIAGNOSES: 1. Metastatic urothelial carcinoma. 2. Declining performance status. 3. Hypoalbuminemia. 4. Pleural effusion. 5. Lower extremity edema. 6. Anemia. SUBJECTIVE: Sancho was once again seen and examined at bedside. His is present during the examination. The patient had been undergoing immunotherapy with Tecentriq, last dose administered on 08 January. He is making steady and slow progress. I started him on supplemental albumin yesterday. He has already received his daily dose this morning. He is sitting in bed without pain or complaints otherwise. Lower extremity edema seems to be modestly improved. PHYSICAL EXAMINATION: GENERAL: He is in no acute distress, again sitting up in chair. VITAL SIGNS: Temperature 36, heart rate 106, respiratory rate 22, and blood pressure 157/85. SKIN: Warm, dry, noncyanotic without rash or lesion. HEENT: Oral mucosa without erythema or ulceration. NECK: Supple. HEART: Regular rate and rhythm. LUNGS: Clear to auscultation. ABDOMEN: Distended and nontender. EXTREMITIES: 1+ peripheral edema bilaterally in the lower extremities. NEUROLOGIC: Grossly intact. LABORATORY DATA: Peripheral blood counts and serum chemistries pending at time of dictation. IMPRESSION: 1. Declining performance status. 2. Hypoalbuminemia. 3. Acute renal injury. 4. Metastatic urothelial carcinoma. 5. Nonmalignant pleural effusion. 6. Profound normocytic normochromic anemia, attributable to chemotherapy effect. 7. Leukocytosis with predominant neutrophilia. PLAN: Sancho was again seen at a chair side today. His spirits are a little bit better. Albumin x2 has been administered and anxious to review his most recent chemistries. It would appear his edema has improved. Definitely needs nutritional consult to encourage increased protein intake. Perhaps a 24-hour urine to evaluate protein excretion would be reasonable. Again, Dr. Groves was supposed to see Mr. Mello tomorrow in clinic. Obviously that probably will not happen and I will have Dr. Groves come up informally and discuss further treatment plans with Sancho and his . Thank you again for allowing us to participate in this pleasant gentleman's care.
[2017-01-26 09:40] LABS: BUN/CREATININE RATIO 27.8 (10-20); CALCIUM 8.2 mg/dl (8.5-10.1); CREATININE 2.04 mg/dl (0.60-1.40); HEMATOCRIT 28.4 % (42-52); MEAN CELL VOLUME 86.3 fL (80-100); MEAN CORPUSCULAR HEMOGLOBIN 27.4 pg (25-34); MEAN CORPUSCULAR HGB CONC 31.7 g/dl (32-36); MEAN PLATELET VOLUME 11.1 fL (7.4-10.4); PLATELET COUNT 249 K/uL (130-400); POTASSIUM 4.7 mmol/L (3.5-5.1); RED BLOOD COUNT 3.29 M/uL (4.7-6.1); WHITE BLOOD COUNT 29.25 K/uL (4.8-10.8)
--- NOTE | 2017-01-26 10:09 | Hematology/Oncology Prog Note ---
Hematology/Onc Progress Note Date of Service Jan 26, 2017. Diagnoses metastatic neoplasm Hypoalbuminemia Probable capillary leak syndrome Relatively new Leukocytosis rule out secondary to tumor progression Pararenal collection of fluid tumor versus abscess Increased LFTs most likely secondary to PD1 inhibitor and hepatitis rule out also progression of disease Medications Medications Administered Medications (Trade) Dose Ordered Sig/Cb Route Start Time Stop Time Status Last Admin Dose Admin Sodium Chloride 1,000 ml @ 999 mls/hr Q1H1M STAT IV 01/20/17 17:30 01/20/17 18:30 DC 01/20/17 18:52 999 MLS/HR Piperacillin Sod/ Tazobactam Sod (Zosyn Iv) 4.5 gm NOW STAT IV 01/20/17 17:30 01/20/17 17:36 DC 01/20/17 18:52 4.5 GM Vancomycin HCl (Vancomycin 1gm/ 270ml Nss) 1 gm NOW STAT IV 01/20/17 17:30 01/20/17 17:36 DC 01/20/17 20:06 1 GM Albuterol/ Ipratropium (Duoneb) 3 ml NOW STAT INH 01/20/17 17:30 01/20/17 17:36 DC 01/20/17 18:52 3 ML Sodium Chloride 1,000 ml @ 75 mls/hr [id number] IV 01/20/17 18:40 01/21/17 15:00 DC 01/21/17 07:44 75 MLS/HR Acetaminophen (Tylenol Tab) 650 mg Q6H PRN PO 01/20/17 18:45 02/19/17 18:44 01/21/17 14:14 650 MG Clonidine HCl (Catapres Tab) 0.1 mg BID PO 01/20/17 21:00 02/19/17 20:59 01/26/17 08:04 0.1 MG Hydromorphone HCl (Dilaudid Tab) 4 mg Q6 PRN PO 01/20/17 18:45 01/22/17 12:23 DC 01/22/17 02:02 4 MG Metoprolol Tartrate (Lopressor Tab) 50 mg BID PO 01/20/17 21:00 02/19/17 20:59 01/26/17 08:04 50 MG Multivitamins (Multivitamin Tab) 1 tab QAM PO 01/21/17 09:00 02/20/17 08:59 01/26/17 08:04 1 TAB Diphenhydramine HCl (Benadryl Cap) 50 mg HS PO 01/20/17 21:00 02/19/17 20:59 01/25/17 20:22 50 MG Mirtazapine (Remeron Tab) 15 mg HS PO 01/20/17 21:00 02/19/17 20:59 01/25/17 20:22 15 MG Vancomycin HCl 1250 mg/Sodium Chloride 275 ml @ 125 mls/hr DAILY@0600 IV 01/21/17 06:00 01/26/17 09:03 DC 01/26/17 05:15 125 MLS/HR Piperacillin Sod/ Tazobactam Sod 3.375 gm/Dextrose 115 ml @ 28.75 mls/ hr Q8H IV 01/21/17 00:00 01/26/17 09:44 DC 01/26/17 08:55 28.75 MLS/HR Nystatin (Mycostatin Susp) 5 ml QID PO 01/20/17 21:00 01/30/17 20:59 01/26/17 08:04 5 ML Acetaminophen (Tylenol Tab) 1,000 mg BID PO 01/20/17 21:00 02/19/17 20:59 01/26/17 08:55 1,000 MG Albuterol/ Ipratropium (Duoneb) 3 ml QIDR INH 01/20/17 20:00 01/22/17 13:20 DC 01/22/17 11:09 3 ML Hydralazine HCl (HydrALAZINE INJ) 10 mg Q6 PRN IV. 01/20/17 19:45 02/19/17 19:44 01/24/17 05:17 10 MG Neomycin/ Polymyxin/ Hydrocortisone (Cortisporin Otic Soln) 2 drops TID OT 01/21/17 14:00 02/20/17 13:59 01/25/17 09:01 2 DROPS Heparin Sodium (Porcine) (Heparin 100 Unit/ml 5ml Flush) 5 ml PRN PRN IV 01/22/17 00:15 02/21/17 00:14 01/25/17 20:09 5 ML Hydromorphone HCl (Dilaudid Tab) 2 mg Q6 PRN PO 01/22/17 12:30 02/03/17 18:44 01/23/17 23:03 2 MG Albuterol/ Ipratropium (Duoneb) 3 ml QIDR PRN INH 01/22/17 16:00 01/22/17 19:39 DC 01/22/17 19:34 3 ML Albuterol/ Ipratropium (Duoneb) 3 ml Q4RWA INH 01/22/17 20:00 01/23/17 11:11 DC 01/23/17 07:07 3 ML Albuterol/ Ipratropium (Combivent Respimat Inh) 1 puffs Q4HWA INH 01/23/17 12:00 02/22/17 11:59 01/26/17 08:03 1 PUFFS Tamsulosin HCl (Flomax Cap) 0.4 mg HS PO 01/25/17 21:00 02/24/17 20:59 01/25/17 20:22 0.4 MG Enteral Nutritional Formula (Boost) 1 can BIDM PO 01/25/17 17:00 02/24/17 16:59 01/26/17 08:55 1 CAN Oxybutynin Chloride (Ditropan Tab) 5 mg BID PO 01/25/17 20:00 02/24/17 19:59 01/26/17 08:04 5 MG Albumin Human (Albumin 25%) 12.5 gm DAILY IV 01/25/17 18:00 01/26/17 06:56 DC 01/25/17 18:03 12.5 GM Albumin Human (Albumin 25%) 12.5 gm DAILY IV 01/26/17 08:00 01/28/17 17:59 01/26/17 07:51 12.5 GM Subjective His performance status has really declined. He remains afebrile. He is essentially bedridden at this point. He denies pain. Respirations seem to be stable. Review of Systems: Constitutional: Negative for night sweats, or fever Eyes: Negative for event change of vision ENT: Negative for epistaxis, nasal discharge, sore throat, or deafness Cardiovascular: Negative for chest pain, palpitations, dizziness, diaphoresis Respiratory: Negative for worsening shortness of breath,hemoptysis, or purulent cough Gastrointestinal: Negative for diarrhea, hematemesis, Integumentary (skin): Negative for rash or jaundice discoloration Genitourinary: Negative for urinary frequency, hematuria, or dysuria Neurological: Positive for generalized weakness Lymphatic/Hematologic: Negative for petechiae, bleeding or new adenopathy Musculoskeletal: Negative for new joint or back pain Allergic/Immunologic: Negative for unusual rash or pruritis. Vital Signs Vital Signs Past 12 Hours Date Time Temp Pulse Resp B/P (MAP) Pulse Ox O2 Delivery O2 Flow Rate FiO2 01/26/17 09:00 Room Air 01/26/17 08:04 36.0 106 22 157/85 (109) 98 Room Air 01/26/17 04:21 36.4 101 24 174/78 (110) 91 Room Air 01/26/17 00:00 36.3 80 16 128/58 (81) 98 01/26/17 00:00 Room Air Physical Exam Constitutional: vitals are stable. Generalized edema, anasarca Eyes: Eyes are ROMÁN EOMI without conjuctival erythema or icterus. ENT: External examination was negative for masses. Neck: Negative for masses or palpable thyromegaly Respiratory: Lung sounds were generally decreased throughout Cardiovascular: Heart was RRR without significant murmur, gallops or rubs Gastrointestinal: No palpable hepatic or splenomegaly. The abdomen was soft with normal bowel sounds. Lymphatic system: there was no palpable peripheral lymphadenopathy Musculoskeletal System: The musculoskeletal system seemed concordant with age. Skin: The skin was negative for jaundice. Neurologic exam: The exam was negative for any focal findings. Deep tendon reflexes were equal and symmetrical. Psychiatric exam: Depressed affect Extremities: Bilateral dependent nontender edema at least 1+ Constitutional: Level of Distress: NAD, chronically ill Psychiatric: Mental Status: active & alert Orientation: oriented except where noted ENMT: pharynx normal Lungs: Respiratory Effort: use of accessory muscles Auscuitation: decreased breath sounds (in lower [place]me[place] on the right) Cardiovascular: Heart Auscultation: RRR Abdomen: Inspection & Palpation: soft, no tenderness, guarding & rebound Musculoskeletal: normal strength (5/5 throughout) Extremities: no edema Laboratory Last 24 Hours Test 01/26/17 04:55 White Blood Count 29.25 K/uL Red Blood Count 3.29 M/uL Hemoglobin 9.0 g/dL Hematocrit 28.4 % Mean Corpuscular Volume 86.3 fL Mean Corpuscular Hemoglobin 27.4 pg Mean Corpuscular Hemoglobin Concent 31.7 g/dl Platelet Count 249 K/uL Mean Platelet Volume 11.1 fL RDW Standard Deviation 55.8 fL RDW Coefficient of Variation 17.9 % Sodium Level 138 mmol/L Potassium Level 4.7 mmol/L Chloride Level 107 mmol/L Carbon Dioxide Level 21 mmol/L Anion Gap 10.0 mmol/L Blood Urea Nitrogen 57 mg/dl Creatinine 2.04 mg/dl Est Creatinine Clear Calc Drug Dose 36.6 ml/min Estimated GFR () 37.4 Estimated GFR (Non- 32.3 BUN/Creatinine Ratio 27.8 Random Glucose 109 mg/dl Calcium Level 8.2 mg/dl Vancomycin Level Trough 27.0 mcg/ml Assessment & Plan Several issues: Met today with the patient, his and Dr. Pickett. With his severe hypoalbuminemia and fluid spacing he appears to have developed a capillary leak syndrome or a version of capillary leak most likely secondary to the PD-1 inhibitor. The treatment ends up being colloid and albumin has been given. It is questionable as to whether steroids would be helpful. Elevated LFTs would be consistent then also with autoimmune or immune mediated hepatitis again secondary to the checkpoint inhibitor. The possibility of course exists that his tumor has progressed. It is difficult to compare the CT scans in that the most recent one was done without IV contrast and his creatinine will not allow safe administration of the IV contrast. Nevertheless a sonogram of the liver might show defects in areas that were not existent on the previous CT and this was discussed with the patient. He has agreed to allow at least a sonogram of the liver. Remains afebrile. The pararenal collection of fluid remains unchanged from October to now in size. Abscess is a possibility but doubtful at this juncture. He is without pain or fever. The leukocytosis again is relatively new and I suspect is more on the basis of drug effect or progression of tumor. A leonarda discussion was carried out with the patient and his . He will allow sonogram of the liver. I suggested that a transfer to [place] for evaluation of his perirenal masses in that it is unclear as to whether this is infected fluid or not was really dismissed by the patient and his . I would be in favor of parenteral steroids for the underlying hepatitis and as a possible corollary treatment for the presumed capillary leak problem. The dose that I believe would be reasonable would be 1 milligram per kilogram per day or 80-100 mg of daily IV Solu-Medrol for now. At the time of discharge this can be converted then to oral prednisone at 80 mg a day. Further discussion led to the realization that he has declined so severely. He would not be a candidate for further systemic therapy. He understood this and stated that he just wanted to be "kept comfortable" and his agreed. With that then I would consult hospice. We did also have a discussion concerning resuscitation he requests a DNR status.
[2017-01-26 10:10] LABS: BASO % 0.1 %; BASO ABS # 0.02 K/uL (0-0.2); COMPLETE YES; ECHINOCYTES 2+; EOS % 0.2 %; IG% 0.8 %; LYMPH % 2.8 %; LYMPH ABS # 0.81 K/uL (1.2-3.4); MONO % 5.4 %; NEUT % 90.7 %
[2017-01-26] MEDS ORDERED: METHYLPREDNISOLONE IV 100 MG in SYRINGE 0 ML IV ONE (10:15)
--- NOTE | 2017-01-26 10:54 | Nephrology Progress Note ---
Nephrology Progress Note Date of Service Jan 26, 2017. Chief Complaint F/U for ELLA Subjective Sancho was seen and examined in his room this morning. Overall he continues to feel very tired, denies any shortness of breath, chest pain or abdominal pain. Renal function remained relatively stable, continues to have decent urine blood pressure has been stable. Review of Systems A complete review of systems was performed. Pertinent positives are noted above. All other systems are negative. Vital Signs Last 8 Hrs Date Time Temp Pulse Resp B/P (MAP) Pulse Ox O2 Delivery O2 Flow Rate FiO2 01/26/17 09:00 Room Air 01/26/17 08:04 36.0 106 22 157/85 (109) 98 Room Air 01/26/17 04:21 36.4 101 24 174/78 (110) 91 Room Air Last Recorded Weight Weight (Kilograms): 86.500 Physical Exam GENERAL: elderly male,, AAA x 3, pleasant, ill-appearing, pale, no distress. NECK: Supple, no JVD. RESPIRATORY: Normal breathing efforts, no accessory muscle use, clear to auscultation bilaterally, no wheezes or rales. CARDIOVASCULAR: S1, S2 normal, rate rhythm regular. EXTREMITY:2-3+ b/l lower extremity edema NEURO: speech fluent. PSYCHIATRY: Normal mood and judgment Family History Breast Cancer Kidney disease Social History Smokeless Tobacco Use: No Alcohol Use: none Drug Use: none Marital Status: Housing Status: lives with significant other Occupation: retired Laboratory Results Past 24 Hours 01/26/17 04:55 Red Blood Count 3.29, Mean Corpuscular Volume 86.3, Mean Corpuscular Hemoglobin 27.4, Mean Corpuscular Hemoglobin Concent 31.7, Mean Platelet Volume 11.1, Neutrophils (%) (Auto) 90.7, Lymphocytes (%) (Auto) 2.8, Monocytes (%) (Auto) 5.4, Eosinophils (%) (Auto) 0.2, Basophils (%) (Auto) 0.1, Neutrophils # (Auto) 26.57, Lymphocytes # (Auto) 0.81, Monocytes # (Auto) 1.57, Eosinophils # (Auto) 0.05, Basophils # (Auto) 0.02 01/26/17 04:55 Test 01/26/17 04:55 White Blood Count 29.25 K/uL (4.8-10.8) Red Blood Count 3.29 M/uL (4.7-6.1) Hemoglobin 9.0 g/dL (14.0-18.0) Hematocrit 28.4 % (42-52) Mean Corpuscular Volume 86.3 fL (80-100) Mean Corpuscular Hemoglobin 27.4 pg (25-34) Mean Corpuscular Hemoglobin Concent 31.7 g/dl (32-36) Platelet Count 249 K/uL (130-400) Mean Platelet Volume 11.1 fL (7.4-10.4) Neutrophils (%) (Auto) 90.7 % Lymphocytes (%) (Auto) 2.8 % Monocytes (%) (Auto) 5.4 % Eosinophils (%) (Auto) 0.2 % Basophils (%) (Auto) 0.1 % Neutrophils # (Auto) 26.57 K/uL (1.4-6.5) Lymphocytes # (Auto) 0.81 K/uL (1.2-3.4) Monocytes # (Auto) 1.57 K/uL (0.11-0.59) Eosinophils # (Auto) 0.05 K/uL (0-0.5) Basophils # (Auto) 0.02 K/uL (0-0.2) RDW Standard Deviation 55.8 fL (36.4-46.3) RDW Coefficient of Variation 17.9 % (11.5-14.5) Immature Granulocyte % (Auto) 0.8 % Immature Granulocyte # (Auto) 0.23 K/uL (0.00-0.02) Echinocytes 2+ Anion Gap 10.0 mmol/L (3-11) Est Creatinine Clear Calc Drug Dose 36.6 ml/min Estimated GFR () 37.4 Estimated GFR (Non- 32.3 BUN/Creatinine Ratio 27.8 (10-20) Calcium Level 8.2 mg/dl (8.5-10.1) Vancomycin Level Trough 27.0 mcg/ml (SEE COMMENT) Allergies Coded Allergies: No Known Allergies (Unverified , 01/20/17) Medications Current Inpatient Medications Medications (Trade) Dose Ordered Sig/Cb Route Start Time Stop Time Status Last Admin Dose Admin Acetaminophen (Tylenol Tab) 650 mg Q6H PRN PO 01/20/17 18:45 02/19/17 18:44 01/21/17 14:14 650 MG Al Hydrox/Mg Hydrox/Simethicone (Maalox Max Susp) 15 ml Q4H PRN PO 01/20/17 18:45 02/19/17 18:44 Magnesium Hydroxide (Milk Of Magnesia Susp) 30 ml Q12H PRN PO 01/20/17 18:45 02/19/17 18:44 Ondansetron HCl (Zofran Inj) 4 mg Q6H PRN IV 01/20/17 18:45 02/19/17 18:44 Polyethylene (Miralax Powder Packet) 17 gm DAILY PRN PO 01/20/17 18:45 02/19/17 18:44 Clonidine HCl (Catapres Tab) 0.1 mg BID PO 01/20/17 21:00 02/19/17 20:59 01/26/17 08:04 0.1 MG Metoprolol Tartrate (Lopressor Tab) 50 mg BID PO 01/20/17 21:00 02/19/17 20:59 01/26/17 08:04 50 MG Multivitamins (Multivitamin Tab) 1 tab QAM PO 01/21/17 09:00 02/20/17 08:59 01/26/17 08:04 1 TAB Diphenhydramine HCl (Benadryl Cap) 50 mg HS PO 01/20/17 21:00 02/19/17 20:59 01/25/17 20:22 50 MG Mirtazapine (Remeron Tab) 15 mg HS PO 01/20/17 21:00 02/19/17 20:59 01/25/17 20:22 15 MG Nystatin (Mycostatin Susp) 5 ml QID PO 01/20/17 21:00 01/30/17 20:59 01/26/17 08:04 5 ML Acetaminophen (Tylenol Tab) 1,000 mg BID PO 01/20/17 21:00 02/19/17 20:59 01/26/17 08:55 1,000 MG Hydralazine HCl (HydrALAZINE INJ) 10 mg Q6 PRN IV. 01/20/17 19:45 02/19/17 19:44 01/24/17 05:17 10 MG Neomycin/ Polymyxin/ Hydrocortisone (Cortisporin Otic Soln) 2 drops TID OT 01/21/17 14:00 02/20/17 13:59 01/25/17 09:01 2 DROPS Heparin Sodium (Porcine) (Heparin 100 Unit/ml 5ml Flush) 5 ml PRN PRN IV 01/22/17 00:15 02/21/17 00:14 01/26/17 10:44 5 ML Hydromorphone HCl (Dilaudid Tab) 2 mg Q6 PRN PO 01/22/17 12:30 02/03/17 18:44 01/23/17 23:03 2 MG Albuterol/ Ipratropium (Combivent Respimat Inh) 1 puffs Q4HWA INH 01/23/17 12:00 02/22/17 11:59 01/26/17 08:03 1 PUFFS Tamsulosin HCl (Flomax Cap) 0.4 mg HS PO 01/25/17 21:00 02/24/17 20:59 01/25/17 20:22 0.4 MG Enteral Nutritional Formula (Boost) 1 can BIDM PO 01/25/17 17:00 02/24/17 16:59 01/26/17 08:55 1 CAN Oxybutynin Chloride (Ditropan Tab) 5 mg BID PO 01/25/17 20:00 02/24/17 19:59 01/26/17 08:04 5 MG Albumin Human (Albumin 25%) 12.5 gm DAILY IV 01/26/17 08:00 01/28/17 17:59 01/26/17 07:51 12.5 GM Methylprednisolone Sodium Succinate 100 mg/Syringe 1.6 ml @ 1.5 mls/min DAILY IV 01/27/17 08:00 02/26/17 07:59 Impression (1) Acute renal insufficiency (2) ATN (acute tubular necrosis) (3) Sepsis (4) Pleural effusion on right (5) Leukocytosis (6) HTN (hypertension) (7) Right renal mass Mr. 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 He has evidence of progressive disease while maintained on atezolizumab. He presented with progressive fatigue, malaise, generalized weakness, dyspnea, cough and possible subjective fever at home. He was admitted with SIRs/suspected sepsis with unclear source of infection. A right pleural effusion has been drained which is exudative by Light's criteria. Cultures from the fluid are negative and cytology is pending. Imaging also reveals persistent changes in the right kidney consistent with a necrotic tumor or abscess. Urine cultures were negative prior to admission. UA had been notable for pyuria, microscopic hematuria and proteinuria. He remains on treatment with vancomycin and Zosyn. Leukocytosis persists but other signs of infection are improving. He remains afebrile. At this time, I would like to repeat urine studies including UA/microscopy and cultures. Once cultures are obtained, ID consult may help guide additional antibiotic therapy. It remains unclear if leukocytosis is a manifestation of infection or a leukemoid reaction. Oncology note was reviewed favoring potential leukemoid reaction, in which case, if urine is clear weaning antibiotics would be appropriate. Overall, renal function is stable. Urine microscopy and clinical history are consistent with ATN. ARSEN inhibitor has been held. Blood pressure and volume status are currently acceptable. He is hypervolemic with increased TBW but I suspect slightly intravascularly dry given hypoalbuminemia. No additional diuretics or IVF are necessary at this time. I discussed adequate fluid intake with the patient and his family. Immune mediated nephritis associated with treatment for malignancy cannot be completely excluded but at this time renal function is stable and mAB therapy has been stopped. No additional management would be considered warranted. I discussed the case with Dr. Venegas again this morning. Ultimately, once results or repeat urine studies are obtained, discussion with Fiordaliza Wang MD (urologist at [facility]) tomorrow would be helpful. Recommendations -- overall clinically seems to be declining, had long discussion Oncology and decided against any further systemic therapy. Discussed with patient and his and feel like patient has been through a lot and decided no further aggressive measures and mainly wants to be comfortable. --renal function remained relatively stable, continues to have decent urine output, electrolyte acceptable. --will not plan for any further nephrology follow-up, workup outpatient visit. Discussed with patient's who agrees with the plan --offered help in our availability any time Well will sign off. We will be available for any question or concern
--- NOTE | 2017-01-26 12:22 | DIAGNOSTIC IMAGING REPORT ---
BILATERAL LOWER EXTREMITY VENOUS DOPPLER HISTORY: Acute bilateral lower extremity edema leg edema, r/o DVT COMPARISON STUDY: None. FINDINGS: RIGHT: There is normal compressibility, flow, and augmentation within the bilateral lower extremity deep venous systems. Mild soft tissue edema. LEFT: Mild soft tissue edema. Occlusive thrombus involves the distal portion of the left popliteal vein extending into the peroneal vein with partially occlusive thrombus noted within the posterior tibial vein. The remaining deep venous structures are patent. IMPRESSION: 1. Occlusive deep venous thrombosis involves the distal left popliteal vein extending into the peroneal and posterior tibial veins. 2. No sonographic evidence of right lower extremity deep venous thrombosis. Electronically signed by: Ludwin Lynne M.D. 01/26/2017 12:20 PM Dictated Date/Time: 01/26/2017 12:17 PM
--- NOTE | 2017-01-26 12:59 | DIAGNOSTIC IMAGING REPORT ---
ULTRASOUND RIGHT UPPER QUADRANT ABDOMEN CLINICAL HISTORY: Hepatic metastatic disease. COMPARISON STUDY: Abdominal CT dated 01/22/2017. TECHNIQUE: Real-time, grayscale, and color flow sonography of the right upper quadrant of the abdomen was performed. Images are reviewed in the transverse and longitudinal planes. FINDINGS: Liver: The liver is enlarged, measuring over 19 cm in length. Hepatic echotexture is heterogeneous. There is no intrahepatic biliary ductal dilatation. The main portal vein is patent. There are numerous (at least 5) hepatic mass lesions. The largest is located in the right lobe and measures up to 4.9 cm. Gallbladder: There is nonspecific gallbladder wall thickening. A 6 mm gallbladder polyp is incidentally noted. No shadowing gallstones are identified. No pericholecystic fluid is seen. A sonographic Andesr's sign is reportedly absent. The common bile duct measures up to 0.6 cm in diameter. Pancreas: Visualized portions of the pancreatic head and body are normal in appearance. Right kidney: A heterogeneous mass lesion is suggested involving the upper pole of the right kidney. This measures up to 11.7 cm. The right kidney demonstrates cortical atrophy. No definite hydronephrosis is seen. Ascites: There is trace perihepatic free fluid. IMPRESSION: 1. The liver is enlarged and there is evidence of multifocal hepatic metastatic disease. 2. There is nonspecific gallbladder wall thickening, likely related to adjacent hepatic disease. There is no convincing sonographic evidence of acute cholecystitis. Clinical correlation will be required. 3. Trace perihepatic ascites. 4. A heterogeneous mass lesion is seen involving the upper pole the right kidney. Electronically signed by: Kevin Babcock M.D. 01/26/2017 12:57 PM Dictated Date/Time: 01/26/2017 12:53 PM
--- NOTE | 2017-01-26 15:02 | Progress Note ---
Subjective Date of Service: Jan 26, 2017. Subjective pt remains afebrile. abx stopped, wound and urine culture negative. wbc mildly improved today. events noted, spoke with primary, pt to pursue hospice services. Problem List Medical Problems: (1) Anemia Status: Acute (2) ARF (acute renal failure) Status: Acute (3) Drug-induced encephalopathy Status: Acute (4) Fall at home Status: Acute (5) Leukocytosis Status: Acute (6) Leukocytosis Status: Acute (7) Pleural effusion Status: Acute (8) Pneumonia Status: Acute (9) Renal failure Status: Acute (10) UTI (urinary tract infection) Status: Acute Objective Vital Signs Date Time Temp Pulse Resp B/P (MAP) Pulse Ox O2 Delivery O2 Flow Rate FiO2 01/26/17 11:59 36.4 81 20 144/77 (99) 97 Room Air 01/26/17 09:00 Room Air 01/26/17 08:04 36.0 106 22 157/85 (109) 98 Room Air 01/26/17 04:21 36.4 101 24 174/78 (110) 91 Room Air 01/26/17 00:00 36.3 80 16 128/58 (81) 98 01/26/17 00:00 Room Air 01/25/17 20:00 36.2 110 20 156/77 (103) 97 Room Air 01/25/17 17:55 36.9 111 20 170/83 (112) 95 Room Air 01/25/17 16:14 36.3 85 18 162/81 (108) 98 01/25/17 16:00 97 Room Air Laboratory Results Item Value Date Time Gram Stain - Final Resulted 01/24/17 1325 Incision Site Back, Right Lower Quadrant Urine Culture - Final Complete 01/24/17 0000 Urine , Clean Catch NO GROWTH - LESS THAN 1,000 COLONIES/ML Gram Stain - Final Complete 01/21/17 0000 Pleural Fluid (Thoracentesis) Right Last 24 Hours Test 01/26/17 04:55 White Blood Count 29.25 K/uL Red Blood Count 3.29 M/uL Hemoglobin 9.0 g/dL Hematocrit 28.4 % Mean Corpuscular Volume 86.3 fL Mean Corpuscular Hemoglobin 27.4 pg Mean Corpuscular Hemoglobin Concent 31.7 g/dl Platelet Count 249 K/uL Mean Platelet Volume 11.1 fL Neutrophils (%) (Auto) 90.7 % Lymphocytes (%) (Auto) 2.8 % Monocytes (%) (Auto) 5.4 % Eosinophils (%) (Auto) 0.2 % Basophils (%) (Auto) 0.1 % Neutrophils # (Auto) 26.57 K/uL Lymphocytes # (Auto) 0.81 K/uL Monocytes # (Auto) 1.57 K/uL Eosinophils # (Auto) 0.05 K/uL Basophils # (Auto) 0.02 K/uL RDW Standard Deviation 55.8 fL RDW Coefficient of Variation 17.9 % Immature Granulocyte % (Auto) 0.8 % Immature Granulocyte # (Auto) 0.23 K/uL Echinocytes 2+ Sodium Level 138 mmol/L Potassium Level 4.7 mmol/L Chloride Level 107 mmol/L Carbon Dioxide Level 21 mmol/L Anion Gap 10.0 mmol/L Blood Urea Nitrogen 57 mg/dl Creatinine 2.04 mg/dl Est Creatinine Clear Calc Drug Dose 36.6 ml/min Estimated GFR () 37.4 Estimated GFR (Non- 32.3 BUN/Creatinine Ratio 27.8 Random Glucose 109 mg/dl Calcium Level 8.2 mg/dl Vancomycin Level Trough 27.0 mcg/ml Assessment and Plan (1) Leukocytosis Assessment & Plan: abx held. pt to begin hospice. will be available if needed, thank you
--- NOTE | 2017-01-26 15:29 | Palliative Care Consultation ---
Consultation Date of Consultation: Jan 26, 2017. Requesting Physician: Dr. Serrano Attending Physician: Dr. Serrano Reason for Consultation: Goals of care History of Present Illness This 71 year old male patient with urothelial cancer with mets to liver presented to the hospital six days ago with possible sepsis, large right pleural effusion, ELLA on CKD, oral thrush, and metastatic urothelial cancer on PD-1 inhibitor. 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 Leaking pus-like fluid from old nephrostomy site- not growing out any bacteria so abx were stopped. Leukocytosis persists, increased LFTs from PD-1 inhibitor per heme/onc. Patient has had rapid decline in recent past, likely has reaction to his systemic therapy. Per heme/onc- no further systemic therapy and patient's wishes are to pursue comfort/hospice care. Palliative is consulted. I met with the patient, his Klarissa, and their son in room 416. Patient is awake, alert and oriented x4, no distress. Patient does have occasional pain but does not want pain medications at this time. Patient's recapped what they discussed with Dr. Groves and confirmed that patient really just wants to focus on comfort at this time. Patient is okay with having testing done that was ordered today and continuing current medical treatment while in hospital, but after hospitalization he really just wants to go home and be on hospice. We discussed what hospice is, the service they provide, and that they are not 24/7 service-- they understand. patient lives home with his and daughter who can care for him. they requested hospice agency list which I gave them. POLST form completed by patient. See plan below. Past Medical/Surgical History Medical History: Metastatic Urothelial CA to Liver HTN Chronic Anemia Prolonged QT S/P L Meniscus Repair R Kidney Stone Removal Social History Smoking Status: Former Smoker History of Alcohol Use: No Drug Use: none Marital Status: Housing Status: lives with significant other Occupation Status: retired Review of Systems Constitutional: + weakness, + fatigue ENT: No trouble swallowing Respiratory: + cough, No shortness of breath Cardiac: + edema, No chest pain Abdomen: + pain, No nausea, No vomiting Male : + urinary frequency Psychiatric: No depression symptoms, No anxiety Allergies Coded Allergies: No Known Allergies (Unverified , 01/20/17) Medications Current Inpatient Medications Medications (Trade) Dose Ordered Sig/Cb Route Start Time Stop Time Status Last Admin Dose Admin Acetaminophen (Tylenol Tab) 650 mg Q6H PRN PO 01/20/17 18:45 02/19/17 18:44 01/21/17 14:14 650 MG Al Hydrox/Mg Hydrox/Simethicone (Maalox Max Susp) 15 ml Q4H PRN PO 01/20/17 18:45 02/19/17 18:44 Magnesium Hydroxide (Milk Of Magnesia Susp) 30 ml Q12H PRN PO 01/20/17 18:45 02/19/17 18:44 Ondansetron HCl (Zofran Inj) 4 mg Q6H PRN IV 01/20/17 18:45 02/19/17 18:44 Polyethylene (Miralax Powder Packet) 17 gm DAILY PRN PO 01/20/17 18:45 02/19/17 18:44 Clonidine HCl (Catapres Tab) 0.1 mg BID PO 01/20/17 21:00 02/19/17 20:59 01/26/17 08:04 0.1 MG Metoprolol Tartrate (Lopressor Tab) 50 mg BID PO 01/20/17 21:00 02/19/17 20:59 01/26/17 08:04 50 MG Multivitamins (Multivitamin Tab) 1 tab QAM PO 01/21/17 09:00 02/20/17 08:59 01/26/17 08:04 1 TAB Diphenhydramine HCl (Benadryl Cap) 50 mg HS PO 01/20/17 21:00 02/19/17 20:59 01/25/17 20:22 50 MG Mirtazapine (Remeron Tab) 15 mg HS PO 01/20/17 21:00 02/19/17 20:59 01/25/17 20:22 15 MG Nystatin (Mycostatin Susp) 5 ml QID PO 01/20/17 21:00 01/30/17 20:59 01/26/17 08:04 5 ML Acetaminophen (Tylenol Tab) 1,000 mg BID PO 01/20/17 21:00 02/19/17 20:59 01/26/17 08:55 1,000 MG Hydralazine HCl (HydrALAZINE INJ) 10 mg Q6 PRN IV. 01/20/17 19:45 02/19/17 19:44 01/24/17 05:17 10 MG Neomycin/ Polymyxin/ Hydrocortisone (Cortisporin Otic Soln) 2 drops TID OT 01/21/17 14:00 02/20/17 13:59 01/25/17 09:01 2 DROPS Heparin Sodium (Porcine) (Heparin 100 Unit/ml 5ml Flush) 5 ml PRN PRN IV 01/22/17 00:15 02/21/17 00:14 01/26/17 10:44 5 ML Hydromorphone HCl (Dilaudid Tab) 2 mg Q6 PRN PO 01/22/17 12:30 02/03/17 18:44 01/23/17 23:03 2 MG Albuterol/ Ipratropium (Combivent Respimat Inh) 1 puffs Q4HWA INH 01/23/17 12:00 02/22/17 11:59 01/26/17 12:56 1 PUFFS Tamsulosin HCl (Flomax Cap) 0.4 mg HS PO 01/25/17 21:00 02/24/17 20:59 01/25/17 20:22 0.4 MG Enteral Nutritional Formula (Boost) 1 can BIDM PO 01/25/17 17:00 02/24/17 16:59 01/26/17 08:55 1 CAN Oxybutynin Chloride (Ditropan Tab) 5 mg BID PO 01/25/17 20:00 02/24/17 19:59 01/26/17 08:04 5 MG Albumin Human (Albumin 25%) 12.5 gm DAILY IV 01/26/17 08:00 01/28/17 17:59 01/26/17 07:51 12.5 GM Methylprednisolone Sodium Succinate 100 mg/Syringe 1.6 ml @ 1.5 mls/min DAILY IV 01/27/17 08:00 02/26/17 07:59 Physical Exam Date Time Temp Pulse Resp B/P (MAP) Pulse Ox O2 Delivery O2 Flow Rate FiO2 01/26/17 11:59 36.4 81 20 144/77 (99) 97 Room Air 01/26/17 09:00 Room Air 01/26/17 08:04 36.0 106 22 157/85 (109) 98 Room Air 01/26/17 04:21 36.4 101 24 174/78 (110) 91 Room Air 01/26/17 00:00 36.3 80 16 128/58 (81) 98 01/26/17 00:00 Room Air 01/25/17 20:00 36.2 110 20 156/77 (103) 97 Room Air 01/25/17 17:55 36.9 111 20 170/83 (112) 95 Room Air 01/25/17 16:14 36.3 85 18 162/81 (108) 98 01/25/17 16:00 97 Room Air General Appearance: no apparent distress, + pertinent finding (chronically ill- appearing) ENT: hearing grossly normal Neck: supple, no JVD Respiratory: no respiratory distress, no accessory muscle use Cardiovascular: regular rate, rhythm, + pertinent finding (+3 pitting edema to BLE, generalized edema all over body) Neurologic/Psychiatric: alert, normal mood/affect, oriented x 3 Skin: + pallor Laboratory Results Last 24 Hours Test 01/26/17 04:55 White Blood Count 29.25 K/uL Red Blood Count 3.29 M/uL Hemoglobin 9.0 g/dL Hematocrit 28.4 % Mean Corpuscular Volume 86.3 fL Mean Corpuscular Hemoglobin 27.4 pg Mean Corpuscular Hemoglobin Concent 31.7 g/dl Platelet Count 249 K/uL Mean Platelet Volume 11.1 fL Neutrophils (%) (Auto) 90.7 % Lymphocytes (%) (Auto) 2.8 % Monocytes (%) (Auto) 5.4 % Eosinophils (%) (Auto) 0.2 % Basophils (%) (Auto) 0.1 % Neutrophils # (Auto) 26.57 K/uL Lymphocytes # (Auto) 0.81 K/uL Monocytes # (Auto) 1.57 K/uL Eosinophils # (Auto) 0.05 K/uL Basophils # (Auto) 0.02 K/uL RDW Standard Deviation 55.8 fL RDW Coefficient of Variation 17.9 % Immature Granulocyte % (Auto) 0.8 % Immature Granulocyte # (Auto) 0.23 K/uL Echinocytes 2+ Sodium Level 138 mmol/L Potassium Level 4.7 mmol/L Chloride Level 107 mmol/L Carbon Dioxide Level 21 mmol/L Anion Gap 10.0 mmol/L Blood Urea Nitrogen 57 mg/dl Creatinine 2.04 mg/dl Est Creatinine Clear Calc Drug Dose 36.6 ml/min Estimated GFR () 37.4 Estimated GFR (Non- 32.3 BUN/Creatinine Ratio 27.8 Random Glucose 109 mg/dl Calcium Level 8.2 mg/dl Vancomycin Level Trough 27.0 mcg/ml Assessment & Plan Palliative Performance Scale: 50 % Problem list: Weakness Abdominal pain Declining functional status Urothelial cancer with mets to liver, progressive Leukocytosis Anemia Increased LFTs likely 2/2 PD-1 inhibitor ELLA on CKD Fluid collection around right kidney- tumor progression Goals of care (Z51.5) Palliative care recs: discussed with patient, patient's Klarissa, patient's son, and Dr. Serrano. assistant credit manager updated. -Patient is level 5 DNR per previous discussion with physician. -Patient okay with current medical management, but wants no escalation in care. -Upon discharge, would like to go home on hospice to his home where he lives with his and daughter. -I was just informed that patient does have DVT- attending MD to talk with patient and family about whether or not they'd like to do Lovenox. -POLST form completed by patient as follows: DNR, comfort measures only, abx with comfort as the goal, no artificial hydration/nutrition. POLST form went over in detail by myself with patient and family as had many questions. - Klarissa to let me know when they have decided on hospice agency. Thank you kindly for this consult. I will follow.
--- NOTE | 2017-01-26 15:52 | SURGERY PROGRESS NOTE ---
DATE: 01/26/2017 SUBJECTIVE: I saw Mr. Mello with his and son today. He is to be discharged in the next couple of days. He is receiving albumin because of his low albumin. He does have fluid, which is re-accumulating on the right side more so than noted earlier; however, he still has no symptoms. On exam, he does have decreased breath sounds. At this point, I would not want to intervene unless he becomes symptomatic. I think he has an extensive disease and the less we do with him, the better.
--- NOTE | 2017-01-26 18:10 | ECHOCARDIOGRAM REPORT ---
*NOTICE TO RECEIVING [employer] This information is strictly Confidential and protected under [place] law. [place] law prohibits you from making any further disclosure of this information unless further disclosure is expressly permitted by the written consent of the person to whom it pertains or is authorized by law. A general authorization for the release of medical or other information is not sufficient for this purpose. Hospital accepts no responsibility if the information is made available to any other person, INCLUDING THE PATIENT. Interpretation Summary * Name: BANDAR YBARRA Study Date: 01/26/2017 01:08 PM BP: 144/77 mmHg * Patient Location: [facility] HR: 81 * : 1945 (M/d/yyyy) Gender: Male Height: 68 in * Age: 71 yrs Ethnicity: CA Weight: 190 lb * Performed By: Kourtney Carpenter RDCS * * Reason For Study: R/O CHF * BSA: 2.0 m2 * -- Conclusions -- * 1. Normal left ventricular size and systolic function. EF 55-60%. No regional wall motion abnormalities. Mild concentric left ventricular hypertrophy. Type 1 diastolic dysfunction. * 2. The left atrium is moderately dilated. * 3. No significant valvular abnormalities visualized. * 4. No prior study available for comparison. Procedure Details * A complete two-dimensional transthoracic echocardiogram was performed (2D, M-mode, Doppler and color flow Doppler). Left Ventricle * Normal left ventricular size and systolic function. EF 55-60%. No regional wall motion abnormalities. Mild concentric left ventricular hypertrophy. Type 1 diastolic dysfunction. Right Ventricle * The right ventricle is normal in size and function. * The right ventricular systolic function is normal as assessed by tricuspid annular plane systolic excursion (TAPSE) (normal >1.5 cm). Atria * The left atrium is moderately dilated. * Right atrial size is normal. * There is no evidence of atrial septal defect, but resolution does not allow assessment for a patent foramen ovale. Mitral Valve * The mitral valve leaflets appear normal. There is no evidence of stenosis, fluttering, or prolapse. * There is trace mitral regurgitation. Tricuspid Valve * The tricuspid valve is not well visualized, but is grossly normal. * There is no tricuspid stenosis. * Significant tricuspid regurgitation is absent. Aortic Valve * The aortic valve is trileaflet. * No hemodynamically significant valvular aortic stenosis. * No aortic regurgitation is present. Pulmonic Valve * The pulmonary valve is inadequately visualized, but the Doppler data is adequate for interpretation. * There is no pulmonic valvular stenosis. * Trace pulmonic valvular regurgitation. Great Vessels * The aortic root is normal size. Pericardium/Pleural * There is no pericardial effusion. Great Vessels * Normal inferior vena cava size and collapsability with sniff indicates a normal right atrial pressure of 3 mmHg Left Ventricular Diastolic Function * Grade I diastolic dysfunction, (abnormal relaxation pattern). MMode 2D Measurements and Calculations IVSd 1.3 cm IVSs 1.8 cm LVIDd 4.8 cm LVIDs 3.3 cm LVPWd 1.3 cm LVPWs 1.7 cm IVS/LVPW 0.98 FS 31.5 % EDV(Teich) 107.4 ml ESV(Teich) 43.7 ml EF(Teich) 59.3 % EDV(cubed) 110.5 ml ESV(cubed) 35.5 ml EF(cubed) 67.9 % % IVS thick 35.1 % % LVPW thick 29.1 % LV mass(C)d 249.0 grams LV mass(C)dI 124.5 grams/m\S\2 LV mass(C)s 227.5 grams LV mass(C)sI 113.7 grams/m\S\2 SV(Teich) 63.7 ml SI(Teich) 31.9 ml/m\S\2 SV(cubed) 75.0 ml SI(cubed) 37.5 ml/m\S\2 Ao root diam 3.1 cm Ao root area 7.3 cm\S\2 LA dimension 4.2 cm LA/Ao 1.4 LVAd ap4 36.6 cm\S\2 LVLd ap4 9.2 cm EDV(MOD-sp4) 117.9 ml EDV(sp4-el) 124.3 ml LVAs ap4 22.1 cm\S\2 LVLs ap4 8.0 cm ESV(MOD-sp4) 54.2 ml ESV(sp4-el) 51.9 ml EF(MOD-sp4) 54.1 % EF(sp4-el) 58.2 % LVAd ap2 32.1 cm\S\2 LVLd ap2 8.8 cm EDV(MOD-sp2) 95.8 ml EDV(sp2-el) 98.8 ml LVAs ap2 20.3 cm\S\2 LVLs ap2 7.8 cm ESV(MOD-sp2) 46.0 ml ESV(sp2-el) 45.1 ml EF(MOD-sp2) 51.9 % EF(sp2-el) 54.4 % LVLd %diff -3.51 % EDV(MOD-bp) 108.0 ml LVLs %diff -3.17 % ESV(MOD-bp) 50.1 ml EF(MOD-bp) 53.6 % SV(MOD-sp4) 63.7 ml SI(MOD-sp4) 31.9 ml/m\S\2 SV(MOD-sp2) 49.7 ml SI(MOD-sp2) 24.9 ml/m\S\2 SV(MOD-bp) 57.9 ml SI(MOD-bp) 29.0 ml/m\S\2 SV(sp4-el) 72.4 ml SI(sp4-el) 36.2 ml/m\S\2 SV(sp2-el) 53.7 ml SI(sp2-el) 26.9 ml/m\S\2 Doppler Measurements and Calculations MV E max esperanza 79.3 cm/sec MV A max esperanza 131.0 cm/sec MV E/A 0.60 MV dec time 0.22 sec Ao V2 max 157.7 cm/sec Ao max PG 10.0 mmHg Ao max PG (full) 5.2 mmHg LV V1 max PG 4.7 mmHg LV V1 max 108.5 cm/sec RAP systole 3.0 mmHg
[2017-01-26] MEDS: TAMSULOSIN HCL 0.4 MG CAP PO SCH (21:22)
[2017-01-26] MEDS: MIRTAZAPINE TAB 15 MG TAB PO SCH (21:23)
--- NOTE | 2017-01-26 22:41 | Hospitalist Progress Note ---
Hospitalist Progress Note Date of Service Jan 26, 2017. Subjective Pt evaluation today including: conversation w/ patient, conversation w/ family , conversation w/ customer consultant (Oncology, Palliative Care, ID) Had lengthy discussion on several occasions with pt, his , and daughter on the phone at one point. Pt states he feels "lousy." Dr. Groves and I did go in to see the pt together today and discussed the possibilities of his condition such as renal abscess (less likely) vs progression of tumor, possible progression of mets to liver with elevated LFTs vs hepatitis secondary to immunotherapy, as well as capillary leak syndrome from immunotherapy. Pt is agreeable to stay for IV steroids to treat capillary leak and hepatitis and this may help him feel better. He was also agreeable to liver US and Doppler LEs to r/o DVT, as well as ECHO. But then he states he wants to go on Hospice and go home soon. He tells me he's accepting of his condition and poor prognosis , and prefers comfort measures. He does not want transfer to [facility] [place] [place] for any further procedures or testing. He is still having trouble sleeping and having urinary frequency. Respiratory: No shortness of breath Cardiovascular: No chest pain All Other Systems: Reviewed and Negative Objective Vital Signs Date Time Temp Pulse Resp B/P (MAP) Pulse Ox O2 Delivery O2 Flow Rate FiO2 01/26/17 20:11 36.4 96 20 171/81 (111) 96 Room Air 01/26/17 16:00 Room Air 01/26/17 15:30 36.3 81 22 167/79 (108) 99 Room Air 01/26/17 11:59 36.4 81 20 144/77 (99) 97 Room Air 01/26/17 09:00 Room Air 01/26/17 08:04 36.0 106 22 157/85 (109) 98 Room Air 01/26/17 04:21 36.4 101 24 174/78 (110) 91 Room Air 01/26/17 00:00 36.3 80 16 128/58 (81) 98 01/26/17 00:00 Room Air Physical Exam General Appearance: no apparent distress (appears chronically ill) Eyes: normal inspection, sclerae normal ENT: hearing grossly normal Neck: trachea midline Respiratory/Chest: no respiratory distress, no accessory muscle use, + decreased breath sounds (at right lower and middle lung almeida) Cardiovascular: regular rate, rhythm, no murmur, + pertinent finding (2-3+ pitting edema lower extremities to the thighs bilat) Abdomen: normal bowel sounds, non tender, soft Extremities: no calf tenderness Neurologic/Psychiatric: alert, oriented x 3, + depressed affect Skin: normal color, warm/dry, no rash Laboratory Results Last 24 Hours Test 01/26/17 04:55 White Blood Count 29.25 K/uL Red Blood Count 3.29 M/uL Hemoglobin 9.0 g/dL Hematocrit 28.4 % Mean Corpuscular Volume 86.3 fL Mean Corpuscular Hemoglobin 27.4 pg Mean Corpuscular Hemoglobin Concent 31.7 g/dl Platelet Count 249 K/uL Mean Platelet Volume 11.1 fL Neutrophils (%) (Auto) 90.7 % Lymphocytes (%) (Auto) 2.8 % Monocytes (%) (Auto) 5.4 % Eosinophils (%) (Auto) 0.2 % Basophils (%) (Auto) 0.1 % Neutrophils # (Auto) 26.57 K/uL Lymphocytes # (Auto) 0.81 K/uL Monocytes # (Auto) 1.57 K/uL Eosinophils # (Auto) 0.05 K/uL Basophils # (Auto) 0.02 K/uL RDW Standard Deviation 55.8 fL RDW Coefficient of Variation 17.9 % Immature Granulocyte % (Auto) 0.8 % Immature Granulocyte # (Auto) 0.23 K/uL Echinocytes 2+ Sodium Level 138 mmol/L Potassium Level 4.7 mmol/L Chloride Level 107 mmol/L Carbon Dioxide Level 21 mmol/L Anion Gap 10.0 mmol/L Blood Urea Nitrogen 57 mg/dl Creatinine 2.04 mg/dl Est Creatinine Clear Calc Drug Dose 36.6 ml/min Estimated GFR () 37.4 Estimated GFR (Non- 32.3 BUN/Creatinine Ratio 27.8 Random Glucose 109 mg/dl Calcium Level 8.2 mg/dl Vancomycin Level Trough 27.0 mcg/ml Assessment and Plan This patient is a 71-year-old male with metastatic urothelial cancer with metastases to the liver who presented with shortness of breath and large right- sided pleural effusion and worsening leukocytosis, suspected sepsis. Suspected sepsis w/ significant leukocytosis and tachycardia on admission, although no fever or clear source- ?infection vs leukemoid reaction--> Urology does not think the drainage from previous nephrostomy tube site is infectious but rather progression of disease. Gas seen in rt kidney likely chronic and secondary to possible necrosis of tumor rather than emphysematous pyelitis. Leukocytosis unchanged despite IV abx therapy for many days. Leukocytosis more likely secondary to leukemoid reaction from urothelial cell CA. Cultures from pleural fluid, drainage from right PCN site and urine all no growth. WBC count remains stable around 30k - discontinue IV Zosyn + Vancomycin - ID consult appreciated -Urology consult appreciated -Thoracic surgery consult appreciated for thoracentesis Right pleural effusion s/p thoracentesis on 02/20 for 1250cc-some reaccumulation on repeat CXR 01/25 but pt asymptomatic. Pleural effusion secondary to capillary leak syndrome from PDL-1 inhibitor effect - Follow-up w/ Dr. Montelongo as needed for SOB or hypoxia if needs fluid drained again Metastatic urothelial cancer/Capillary leak SYndrome/Hypoalbuminemia/Liver masses/Hepatitis-was on chemotherapy followed by immunotherapy more recently. Now with suspected hepatitis and capillary leak with severe hypoalbuminemia from immunotherapy most likely. - CT 01/22 suggests progressive disease in liver despite chemotherapy. Liver US today shows at least 5 masses, the largest being 4.9 cm in liver-> compared to CT reports from [facility] [place] [place] reviewed in scanned records, this is progressed disease -Dr. Groves stated no further treatment to be given especially in light of declining performance status and pt's wishes to not pursue any further treatment -received 2 doses of IV albumin so far -start IV Solu Medrol today 100mg IV daily x 2 days then send home on prednisone 80mg daily for hepatitis and cap leak Acute DVT left peroneal vein--> found on Doppler on 01/26. Pt declines any anticoagulation, is accepting of possibility of PE which could be fatal. Discussed with Oncology later in day, suggested offering IVC filter. Pt has expressed desire for no further procedures but will discuss with him in the morning. ELLA secondary to ATN- Cr at 2.0 today: Nephrology following but now signing off given stabilization of renal function and pt now enrolling in Hospice -not giving ACEI Urinary frequency-secondary to bladder spasms/overactive bladder. No improvement after 1 day of new meds as below - UCx negative - Bladder scanned- post residual void WNL- urology suggest Flomax 0.4 mg daily and Oxybutynin 5 mg BID HTN: stable -Continue Catapres 0.1 mg BID, Lopressor 50 mg BID Prophylaxis-SCDs ordered but not wearing, does not desire Lovenox injections for DVT Code Status:changed to DNR/DNI today as per discussion with myself and Dr. Groves Dispo- to home in 1-2 days with Home [facility]
[2017-01-27 04:12] VITALS: BP_SYST 181; BP_SYST 191; BP_DIAS 100; BP_DIAS 103; PULSE 89; TEMP 36.3; O2SAT 99
[2017-01-27] MEDS: HydrALAZINE HCL 20 MG/ML VIAL IV. PRN (04:44)
[2017-01-27 06:28] LABS: BUN/CREATININE RATIO 27.9 (10-20); CALCIUM 8.5 mg/dl (8.5-10.1); CREATININE 2.11 mg/dl (0.60-1.40); POTASSIUM 4.7 mmol/L (3.5-5.1)
[2017-01-27 06:33] LABS: HEMATOCRIT 29.9 % (42-52); MEAN CELL VOLUME 86.2 fL (80-100); MEAN CORPUSCULAR HEMOGLOBIN 27.4 pg (25-34); MEAN CORPUSCULAR HGB CONC 31.8 g/dl (32-36); MEAN PLATELET VOLUME 10.6 fL (7.4-10.4); PLATELET COUNT 269 K/uL (130-400); RED BLOOD COUNT 3.47 M/uL (4.7-6.1); WHITE BLOOD COUNT 39.53 K/uL (4.8-10.8)
[2017-01-27 06:35] LABS: BASO % 0.1 %; BASO ABS # 0.03 K/uL (0-0.2); COMPLETE YES; ECHINOCYTES 1+; IG% 0.9 %; LYMPH % 2.2 %; LYMPH ABS # 0.87 K/uL (1.2-3.4); MONO % 3.5 %; NEUT % 93.3 %
[2017-01-27 07:46] VITALS: BP 124/75; PULSE 103; TEMP 36.4; O2SAT 98
[2017-01-27] MEDS: NEOMYCIN/POLYMYX/HYDROCORT OT SOLN 10 ML BTL OT SCH (08:00)
[2017-01-27] MEDS ORDERED: METHYLPREDNISOLONE IV 100 MG in SYRINGE 0 ML IV SCH (08:00)
[2017-01-27] MEDS: BOOST VANILLA PO SCH ×2 (08:17)
[2017-01-27] MEDS: NYSTATIN SUSP 500,000 U/5 ML UDC PO SCH ×2 (08:19→12:26)
[2017-01-27] MEDS: IPRATROPIUM BROMIDE/ALBUTEROL respimat INH INH SCH ×2 (08:19→12:26)
[2017-01-27] MEDS: ACETAMINOPHEN 500 MG TAB PO SCH (08:20)
[2017-01-27] MEDS: METOPROLOL TARTRATE 50 MG TAB PO SCH (08:20)
[2017-01-27] MEDS: MULTIVITAMIN TAB PO SCH (08:21)
[2017-01-27] MEDS: CLONIDINE HCL 0.1 MG TAB PO SCH (08:21)
[2017-01-27] MEDS: OXYBUTYNIN CHLORIDE 5 MG TAB PO SCH (08:21)
[2017-01-27 09:07] VITALS: BP 144/78; PULSE 102; TEMP 36.4; O2SAT 98
[2017-01-27] MEDS: ALBUMIN HUMAN 25% 12.5 GM/50 ML VIAL IV SCH (09:08)
--- NOTE | 2017-01-27 09:40 | Hematology/Oncology Prog Note ---
Hematology/Onc Progress Note Date of Service Jan 27, 2017. Diagnoses metastatic neoplasm Hypoalbuminemia Probable capillary leak syndrome Relatively new Leukocytosis rule out secondary to tumor progression Pararenal collection of fluid tumor versus abscess Increased LFTs most likely secondary to PD1 inhibitor and hepatitis rule out also progression of disease Medications Medications Administered Medications (Trade) Dose Ordered Sig/Cb Route Start Time Stop Time Status Last Admin Dose Admin Sodium Chloride 1,000 ml @ 999 mls/hr Q1H1M STAT IV 01/20/17 17:30 01/20/17 18:30 DC 01/20/17 18:52 999 MLS/HR Piperacillin Sod/ Tazobactam Sod (Zosyn Iv) 4.5 gm NOW STAT IV 01/20/17 17:30 01/20/17 17:36 DC 01/20/17 18:52 4.5 GM Vancomycin HCl (Vancomycin 1gm/ 270ml Nss) 1 gm NOW STAT IV 01/20/17 17:30 01/20/17 17:36 DC 01/20/17 20:06 1 GM Albuterol/ Ipratropium (Duoneb) 3 ml NOW STAT INH 01/20/17 17:30 01/20/17 17:36 DC 01/20/17 18:52 3 ML Sodium Chloride 1,000 ml @ 75 mls/hr [id number] IV 01/20/17 18:40 01/21/17 15:00 DC 01/21/17 07:44 75 MLS/HR Acetaminophen (Tylenol Tab) 650 mg Q6H PRN PO 01/20/17 18:45 02/19/17 18:44 01/21/17 14:14 650 MG Clonidine HCl (Catapres Tab) 0.1 mg BID PO 01/20/17 21:00 02/19/17 20:59 01/27/17 08:21 0.1 MG Hydromorphone HCl (Dilaudid Tab) 4 mg Q6 PRN PO 01/20/17 18:45 01/22/17 12:23 DC 01/22/17 02:02 4 MG Metoprolol Tartrate (Lopressor Tab) 50 mg BID PO 01/20/17 21:00 02/19/17 20:59 01/27/17 08:20 50 MG Multivitamins (Multivitamin Tab) 1 tab QAM PO 01/21/17 09:00 02/20/17 08:59 01/27/17 08:21 1 TAB Diphenhydramine HCl (Benadryl Cap) 50 mg HS PO 01/20/17 21:00 02/19/17 20:59 01/26/17 21:25 50 MG Mirtazapine (Remeron Tab) 15 mg HS PO 01/20/17 21:00 02/19/17 20:59 01/26/17 21:23 15 MG Vancomycin HCl 1250 mg/Sodium Chloride 275 ml @ 125 mls/hr DAILY@0600 IV 01/21/17 06:00 01/26/17 09:03 DC 01/26/17 05:15 125 MLS/HR Piperacillin Sod/ Tazobactam Sod 3.375 gm/Dextrose 115 ml @ 28.75 mls/ hr Q8H IV 01/21/17 00:00 01/26/17 09:44 DC 01/26/17 08:55 28.75 MLS/HR Nystatin (Mycostatin Susp) 5 ml QID PO 01/20/17 21:00 01/30/17 20:59 01/27/17 08:19 5 ML Acetaminophen (Tylenol Tab) 1,000 mg BID PO 01/20/17 21:00 02/19/17 20:59 01/27/17 08:20 1,000 MG Albuterol/ Ipratropium (Duoneb) 3 ml QIDR INH 01/20/17 20:00 01/22/17 13:20 DC 01/22/17 11:09 3 ML Hydralazine HCl (HydrALAZINE INJ) 10 mg Q6 PRN IV. 01/20/17 19:45 02/19/17 19:44 01/27/17 04:44 10 MG Neomycin/ Polymyxin/ Hydrocortisone (Cortisporin Otic Soln) 2 drops TID OT 01/21/17 14:00 02/20/17 13:59 01/26/17 21:20 2 DROPS Heparin Sodium (Porcine) (Heparin 100 Unit/ml 5ml Flush) 5 ml PRN PRN IV 01/22/17 00:15 02/21/17 00:14 01/27/17 05:34 5 ML Hydromorphone HCl (Dilaudid Tab) 2 mg Q6 PRN PO 01/22/17 12:30 02/03/17 18:44 01/23/17 23:03 2 MG Albuterol/ Ipratropium (Duoneb) 3 ml QIDR PRN INH 01/22/17 16:00 01/22/17 19:39 DC 01/22/17 19:34 3 ML Albuterol/ Ipratropium (Duoneb) 3 ml Q4RWA INH 01/22/17 20:00 01/23/17 11:11 DC 01/23/17 07:07 3 ML Albuterol/ Ipratropium (Combivent Respimat Inh) 1 puffs Q4HWA INH 01/23/17 12:00 02/22/17 11:59 01/27/17 08:19 1 PUFFS Tamsulosin HCl (Flomax Cap) 0.4 mg HS PO 01/25/17 21:00 02/24/17 20:59 01/26/17 21:22 0.4 MG Enteral Nutritional Formula (Boost) 1 can BIDM PO 01/25/17 17:00 02/24/17 16:59 01/27/17 08:17 1 CAN Oxybutynin Chloride (Ditropan Tab) 5 mg BID PO 01/25/17 20:00 02/24/17 19:59 01/27/17 08:21 5 MG Albumin Human (Albumin 25%) 12.5 gm DAILY IV 01/25/17 18:00 01/26/17 06:56 DC 01/25/17 18:03 12.5 GM Albumin Human (Albumin 25%) 12.5 gm DAILY IV 01/26/17 08:00 01/28/17 17:59 01/27/17 09:08 12.5 GM Methylprednisolone Sodium Succinate 100 mg/Syringe 1.6 ml @ 1.5 mls/min DAILY IV 01/27/17 08:00 02/26/17 07:59 01/27/17 08:20 1.5 MLS/MIN Methylprednisolone Sodium Succinate 100 mg/Syringe 1.6 ml @ 1.5 mls/min 1015 ONCE IV 01/26/17 10:15 01/26/17 10:16 DC 01/26/17 10:44 1.5 MLS/MIN Subjective He complains of some pain in the right upper quadrant. His family is with him today. I did review the sonogram of his liver this morning and compared it to CT images with IV contrast from October and clearly the disease has progressed. Vital Signs Vital Signs Past 12 Hours Date Time Temp Pulse Resp B/P (MAP) Pulse Ox O2 Delivery O2 Flow Rate FiO2 01/27/17 09:07 36.4 102 18 144/78 (100) 98 Room Air 01/27/17 07:46 36.4 103 18 124/75 (91) 98 Room Air 01/27/17 04:12 36.3 89 18 191/103 (132) 99 Room Air 181/100 (127) 01/27/17 00:05 Room Air 01/26/17 23:37 36.5 86 20 166/87 (113) 96 Room Air Physical Exam Constitutional: Level of Distress: NAD, chronically ill Psychiatric: Mental Status: active & alert Orientation: oriented except where noted ENMT: pharynx normal Lungs: Respiratory Effort: use of accessory muscles Auscuitation: decreased breath sounds (in lower [place] on the right) Cardiovascular: Heart Auscultation: RRR Abdomen: Inspection & Palpation: soft, no tenderness, guarding & rebound Musculoskeletal: normal strength (5/5 throughout) Extremities: no edema Laboratory Last 24 Hours Test 01/27/17 05:37 White Blood Count 39.53 K/uL Red Blood Count 3.47 M/uL Hemoglobin 9.5 g/dL Hematocrit 29.9 % Mean Corpuscular Volume 86.2 fL Mean Corpuscular Hemoglobin 27.4 pg Mean Corpuscular Hemoglobin Concent 31.8 g/dl Platelet Count 269 K/uL Mean Platelet Volume 10.6 fL Neutrophils (%) (Auto) 93.3 % Lymphocytes (%) (Auto) 2.2 % Monocytes (%) (Auto) 3.5 % Eosinophils (%) (Auto) 0.0 % Basophils (%) (Auto) 0.1 % Neutrophils # (Auto) 36.88 K/uL Lymphocytes # (Auto) 0.87 K/uL Monocytes # (Auto) 1.37 K/uL Eosinophils # (Auto) 0.01 K/uL Basophils # (Auto) 0.03 K/uL RDW Standard Deviation 55.5 fL RDW Coefficient of Variation 18.2 % Immature Granulocyte % (Auto) 0.9 % Immature Granulocyte # (Auto) 0.37 K/uL Echinocytes 1+ Sodium Level 137 mmol/L Potassium Level 4.7 mmol/L Chloride Level 109 mmol/L Carbon Dioxide Level 21 mmol/L Anion Gap 7.0 mmol/L Blood Urea Nitrogen 59 mg/dl Creatinine 2.11 mg/dl Est Creatinine Clear Calc Drug Dose 35.3 ml/min Estimated GFR () 35.9 Estimated GFR (Non- 31.0 BUN/Creatinine Ratio 27.9 Random Glucose 122 mg/dl Calcium Level 8.5 mg/dl Total Bilirubin 1.4 mg/dl Direct Bilirubin 1.0 mg/dl Aspartate Amino Transf (AST/SGOT) 46 U/L Alanine Aminotransferase (ALT/SGPT) 43 U/L Alkaline Phosphatase 439 U/L Total Protein 7.2 gm/dl Albumin 1.7 gm/dl Assessment & Plan I met today with the patient his and 2 children. I reviewed with them that the sonogram that I reviewed today with radiology has demonstrated the disease has progressed and quite rapidly. So much so that I doubt that the liver enzyme changes have anything to do with the checkpoint inhibitor and at this juncture I believe IV Solu-Medrol can be stopped. The only steroid then that I would recommend would be a small dose of daily prednisone perhaps 10 mg a day for vibrancy only. He and his family have opted for hospice and those plans are in place and/or are being initiated. The patient is also aware that he has a DVT seen in his popliteal system of the left leg. I do not believe the Lovenox would be safe to use particularly with his declining renal function. I did review with he and his family the risk of a pulmonary embolus and the option then of an IVC filter and he quickly declined that option. With that then I believe home with hospice would be very reasonable. He may need a mild increase in his oral analgesia. I did review with the patient and that controlling his pain will have to remain a bit of a moving target at home with hopsice help. He has been transfused from time to time and frankly rather frequently. His hemoglobin is stable. Transfusions with hospice help should be able to be given as a palliative treatment as an outpatient however there may come a time when he may not want to move to an outpatient transfusion setting. He acknowledged that he was aware of this.
--- NOTE | 2017-01-27 10:11 | Progress Note ---
Subjective Date of Service: Jan 27, 2017. Subjective Pt evaluation today including: conversation w/ patient, chart review Voiding: no voiding problems Pt reports he did not sleep well last night, but reports it was secondary to his pain rather than nocturia. He remains on Flomax and oxybutynin. Pt desiring d/c home on hospice. Problem List Medical Problems: (1) Anemia Status: Acute (2) ARF (acute renal failure) Status: Acute (3) Drug-induced encephalopathy Status: Acute (4) Fall at home Status: Acute (5) Leukocytosis Status: Acute (6) Leukocytosis Status: Acute (7) Pleural effusion Status: Acute (8) Pneumonia Status: Acute (9) Renal failure Status: Acute (10) UTI (urinary tract infection) Status: Acute Review of Systems Constitutional: No fever, No chills Respiratory: No shortness of breath Cardiac: No chest pain Abdomen: No pain, No nausea, No vomiting Male : No dysuria, No hematuria Heme: No abnormal bleeding/bruising Objective Vital Signs Date Time Temp Pulse Resp B/P (MAP) Pulse Ox O2 Delivery O2 Flow Rate FiO2 01/27/17 09:07 36.4 102 18 144/78 (100) 98 Room Air 01/27/17 08:20 Room Air 01/27/17 07:46 36.4 103 18 124/75 (91) 98 Room Air 01/27/17 04:12 36.3 89 18 191/103 (132) 99 Room Air 181/100 (127) 01/27/17 00:05 Room Air 01/26/17 23:37 36.5 86 20 166/87 (113) 96 Room Air 01/26/17 20:11 36.4 96 20 171/81 (111) 96 Room Air 01/26/17 20:05 Room Air 01/26/17 16:00 Room Air 01/26/17 15:30 36.3 81 22 167/79 (108) 99 Room Air 01/26/17 11:59 36.4 81 20 144/77 (99) 97 Room Air Physical Exam General Appearance: no apparent distress Eyes: normal inspection ENT: hearing grossly normal Neck: no JVD Respiratory/Chest: no respiratory distress, no accessory muscle use Cardiovascular: no JVD Extremities: normal inspection Neurologic/Psychiatric: alert, normal mood/affect, oriented x 3 Skin: normal color Laboratory Results Last 24 Hours Test 01/27/17 05:37 White Blood Count 39.53 K/uL Red Blood Count 3.47 M/uL Hemoglobin 9.5 g/dL Hematocrit 29.9 % Mean Corpuscular Volume 86.2 fL Mean Corpuscular Hemoglobin 27.4 pg Mean Corpuscular Hemoglobin Concent 31.8 g/dl Platelet Count 269 K/uL Mean Platelet Volume 10.6 fL Neutrophils (%) (Auto) 93.3 % Lymphocytes (%) (Auto) 2.2 % Monocytes (%) (Auto) 3.5 % Eosinophils (%) (Auto) 0.0 % Basophils (%) (Auto) 0.1 % Neutrophils # (Auto) 36.88 K/uL Lymphocytes # (Auto) 0.87 K/uL Monocytes # (Auto) 1.37 K/uL Eosinophils # (Auto) 0.01 K/uL Basophils # (Auto) 0.03 K/uL RDW Standard Deviation 55.5 fL RDW Coefficient of Variation 18.2 % Immature Granulocyte % (Auto) 0.9 % Immature Granulocyte # (Auto) 0.37 K/uL Echinocytes 1+ Sodium Level 137 mmol/L Potassium Level 4.7 mmol/L Chloride Level 109 mmol/L Carbon Dioxide Level 21 mmol/L Anion Gap 7.0 mmol/L Blood Urea Nitrogen 59 mg/dl Creatinine 2.11 mg/dl Est Creatinine Clear Calc Drug Dose 35.3 ml/min Estimated GFR () 35.9 Estimated GFR (Non- 31.0 BUN/Creatinine Ratio 27.9 Random Glucose 122 mg/dl Calcium Level 8.5 mg/dl Total Bilirubin 1.4 mg/dl Direct Bilirubin 1.0 mg/dl Aspartate Amino Transf (AST/SGOT) 46 U/L Alanine Aminotransferase (ALT/SGPT) 43 U/L Alkaline Phosphatase 439 U/L Total Protein 7.2 gm/dl Albumin 1.7 gm/dl Assessment and Plan A/P: Metastatic urothelial carcinoma, nocturia Will continue oxybutynin an Flomax as the pt felt his pain was more of a factor in his not sleeping well rather than he nocturia last evening. Can always try switching him to Toviaz or Vesicare qhs for better symptom control if symptoms persists on oxybutynin. Pt pending d/c home on hospice. Will arrange for outpatient f/u with Dr. Nunez. No further management at this time. Recall PRN issues.
[2017-01-27 10:22] VITALS: BP 124/74; PULSE 95; TEMP 36.4; O2SAT 100
[2017-01-27] MEDS ORDERED: NYSS5 PO (11:24)
[2017-01-27] MEDS ORDERED: DTR5 PO (11:24)
[2017-01-27] MEDS ORDERED: MRLP17X PO (11:24)
[2017-01-27] MEDS ORDERED: MRPL PO (11:24)
[2017-01-27] MEDS ORDERED: FNTTP50 TD (11:24)
[2017-01-27] MEDS ORDERED: PRED10TA PO (11:24)
[2017-01-27] MEDS ORDERED: ACET-24 PO (11:24)
[2017-01-27] MEDS ORDERED: CLC100 PO (11:24)
[2017-01-27] MEDS ORDERED: FLM4 PO (11:24)
--- NOTE | 2017-01-27 11:40 | Discharge Instructions ---
Discharge Instructions Date of Service Jan 27, 2017. Admission Reason for Admission: Pleural Effusion On Right Discharge Discharge Diagnosis / Problem: Pleural effusion,Metastatic urothelial cancer Discharge Goals Goal(s): Diagnostic testing, Therapeutic intervention Activity Recommendations Activity Limitations: as noted below Exercise/Sports Limitations: as tolerated Shower/Bathe: no limitations . Instructions / Follow-Up Instructions / Follow-Up You were admitted with a large right sided pleural effusion (fluid around your lungs) which was drained. It was thought initially that you may have an infection due to your rising white blood cell count, but this is more likely secondary to progression of your cancer. You were also thought to be having a "capillary leak syndrome" from your immunotherapy causing swelling in the legs and the fluid around the lung. You were started on steroids for this and can continue them at home. Dr. Groves did not recommend any further treatment for your cancer and arrangements are being made for Hospice Care at home. You were also found to have a blood clot (DVT) in your left leg, but because you would like to pursue comfort measures, we will not treat you with blood thinners. You were started on a Duragesic (fentanyl) patch for pain, as well as a liquid morphine for "breakthrough pain." You were also started on oxybutynin and tamsulosin for your urinary frequency. If you have any questions or problems, please call [phone] and have me paged directly. If you are feeling worsening shortness of breath, please call Dr. Dylan Montelongo's office and he can advise you on what to do as far as the fluid around your lung. It was a pleasure taking care of you, -Dr. Leila Serrano Current Hospital Diet Patient's current hospital diet: Regular Diet Discharge Diet Recommended Diet: Regular Diet Procedures Procedures Performed: Liver ultrasound Echocardiogram Doppler ultrasound of bilateral lower extremity veins Chest CT Chest xray CT abdomen/pelvis Thoracentesis Pending Studies Studies pending at discharge: no Medical Emergencies . Who to Call and When: Medical Emergencies: If at any time you feel your situation is an emergency, please call 911 immediately. . Non-Emergent Contact Non-Emergency issues call your: Primary Care Provider (Home Hospice), Surgeon ( Dr. Montelongo if you have shortness of breath) Call Non-Emergent contact if: temperature is above 100.5, your pain is not controlled, your pain is worsening, your pain is unusual for you, your pain is concerning you, wound has increased drainage, wound has increased redness, wound has increased pain, you have any medication questions . . "Provider Documentation" section prepared by Leila Serrano. . VTE Core Measure Inpt VTE Proph given/why not?: Unfractionated heparin SQ
[2017-01-27] MEDS ORDERED: DRGTP12 TD (11:50)
[2017-01-27] MEDS ORDERED: FENTANYL 12 MCG/HR TDSY TD SCH (12:00)
[2017-01-27 12:36] VITALS: BP 124/74; PULSE 95; TEMP 36.4; O2SAT 100
--- NOTE | 2017-01-27 13:00 | Palliative Care Progress Note ---
Palliative Care Progress Note Date of Service Jan 27, 2017. Subjective Pt evaluation today including: conversation w/ patient, conversation w/ family , physical exam, conversation w/ data consultant (Dr. Serrano), review of inpatient medication list Pain: 5/10 PO Intake: small amounts -Patient is awake, alert and oriented today. Sitting up in chair. -Talked with patient's and daughter at length. They have chosen [facility] -- referral has been made. -Pain in RUQ abdomen is 5/10. Patient would like to try some pain medication. -Dr. Groves gave the patient the okay to be discharged today. -See plan below. Review of Systems Constitutional: + weakness ENT: No trouble swallowing Respiratory: + dyspnea on exertion, No cough Cardiac: + edema, No chest pain Abdomen: + problem reported (right sided distention noted by family) Male : No problem reported Psychiatric: No anxiety Objective Vital Signs Date Time Temp Pulse Resp B/P (MAP) Pulse Ox O2 Delivery O2 Flow Rate FiO2 01/27/17 10:22 36.4 95 18 124/74 (91) 100 Room Air 01/27/17 09:07 36.4 102 18 144/78 (100) 98 Room Air 01/27/17 08:20 Room Air 01/27/17 07:46 36.4 103 18 124/75 (91) 98 Room Air 01/27/17 04:12 36.3 89 18 191/103 (132) 99 Room Air 181/100 (127) 01/27/17 00:05 Room Air 01/26/17 23:37 36.5 86 20 166/87 (113) 96 Room Air 01/26/17 20:11 36.4 96 20 171/81 (111) 96 Room Air 01/26/17 20:05 Room Air 01/26/17 16:00 Room Air 01/26/17 15:30 36.3 81 22 167/79 (108) 99 Room Air 01/26/17 11:59 36.4 81 20 144/77 (99) 97 Room Air Physical Exam General Appearance: no apparent distress, + pertinent finding (chronically ill appearing) ENT: hearing grossly normal Neck: supple, no JVD Respiratory/Chest: no respiratory distress, no accessory muscle use Cardiovascular: regular rate, rhythm, + pertinent finding (+3 pitting edema to BLE, generalized edema) Abdomen: normal bowel sounds, + hepatomegaly Neurologic/Psychiatric: alert, normal mood/affect, oriented x 3 Skin: + pallor Laboratory Results Last 24 Hours Test 01/27/17 05:37 White Blood Count 39.53 K/uL Red Blood Count 3.47 M/uL Hemoglobin 9.5 g/dL Hematocrit 29.9 % Mean Corpuscular Volume 86.2 fL Mean Corpuscular Hemoglobin 27.4 pg Mean Corpuscular Hemoglobin Concent 31.8 g/dl Platelet Count 269 K/uL Mean Platelet Volume 10.6 fL Neutrophils (%) (Auto) 93.3 % Lymphocytes (%) (Auto) 2.2 % Monocytes (%) (Auto) 3.5 % Eosinophils (%) (Auto) 0.0 % Basophils (%) (Auto) 0.1 % Neutrophils # (Auto) 36.88 K/uL Lymphocytes # (Auto) 0.87 K/uL Monocytes # (Auto) 1.37 K/uL Eosinophils # (Auto) 0.01 K/uL Basophils # (Auto) 0.03 K/uL RDW Standard Deviation 55.5 fL RDW Coefficient of Variation 18.2 % Immature Granulocyte % (Auto) 0.9 % Immature Granulocyte # (Auto) 0.37 K/uL Echinocytes 1+ Sodium Level 137 mmol/L Potassium Level 4.7 mmol/L Chloride Level 109 mmol/L Carbon Dioxide Level 21 mmol/L Anion Gap 7.0 mmol/L Blood Urea Nitrogen 59 mg/dl Creatinine 2.11 mg/dl Est Creatinine Clear Calc Drug Dose 35.3 ml/min Estimated GFR () 35.9 Estimated GFR (Non- 31.0 BUN/Creatinine Ratio 27.9 Random Glucose 122 mg/dl Calcium Level 8.5 mg/dl Total Bilirubin 1.4 mg/dl Direct Bilirubin 1.0 mg/dl Aspartate Amino Transf (AST/SGOT) 46 U/L Alanine Aminotransferase (ALT/SGPT) 43 U/L Alkaline Phosphatase 439 U/L Total Protein 7.2 gm/dl Albumin 1.7 gm/dl Assessment and Plan Problem list: Weakness Abdominal pain- RUQ Declining functional status Urothelial cancer with mets to liver, progressive Leukocytosis Anemia Increased LFTs likely 2/2 PD-1 inhibitor ELLA on CKD Fluid collection around right kidney- tumor progression Goals of care (Z51.5) Palliative care recs: -Patient to go home on hospice, chose [facility]. -Add fentanyl patch 12mcg/hr TD Q72h. -Roxanol 5mg PO Q3h PRN pain or SOB. -Per Dr. Groves, patient to go home on prednisone. -POLST form done yesterday. See previous note. -Patient's and daughter had many questions about hospice process and some end-of-life issues which we did discuss. Thank you again for consulting me on this nice patient and his family. Please contact me with any further palliative care needs. Palliative Performance Scale: 50 %
[2017-01-27] MEDS ORDERED: CHECK FENTANYL PATCH PLACEMENT SCH (16:00)
[2017-01-30] MEDS ORDERED: FENTANYL PATCH REMOVE & WASTE SCH (12:00)
== END 2017-01-27 12:55 | disposition hospice, home (50) | DRG 871 ==
LOC: C.EDB 17:12 → C.2E 18:53 → ENRESERV 19:24 → C.4E 01-22 11:58 → ENRESERV 01-22 12:42
PROVIDERS: ADMIT Family Medicine; ATTEND Family Medicine
PROC: 0W993ZZ Drainage of Right Pleural Cavity, Percutaneous Approach (ICD-10-PCS; principal; 2017-01-21)
DX: A41.9 Sepsis, unspecified organism (principal); B99.9 Unspecified infectious disease; D72.823 Leukemoid reaction; N17.0 Acute kidney failure with tubular necrosis; J90 Pleural effusion, not elsewhere classified; Z51.5 Encounter for palliative care; B37.0 Candidal stomatitis; N17.9 Acute kidney failure, unspecified; C66.9 Malignant neoplasm of unspecified ureter; C78.7 Secondary malignant neoplasm of liver and intrahepatic bile duct; C79.01 Secondary malignant neoplasm of right kidney and renal pelvis; I82.492 Acute embolism and thrombosis of other specified deep vein of left lower extremity; E88.09 Other disorders of plasma-protein metabolism, not elsewhere classified; R35.0 Frequency of micturition; N32.81 Overactive bladder; N32.89 Other specified disorders of bladder; D64.9 Anemia, unspecified; I12.9 Hypertensive chronic kidney disease with stage 1 through stage 4 chronic kidney disease, or unspecified chronic kidney disease; N18.3 Chronic kidney disease, stage 3 (moderate); G47.00 Insomnia, unspecified; Z79.899 Other long term (current) drug therapy; Z66 Do not resuscitate; Z87.442 Personal history of urinary calculi; Z87.891 Personal history of nicotine dependence; Z80.3 Family history of malignant neoplasm of breast; Z80.51 Family history of malignant neoplasm of kidney

== ENCOUNTER → 2017-01-20 | Outpatient (CLI) | payer BC, OTHER ==
[~2017-01-20] MED LIST changes: +DIPH1CAP34 PO; +LORA-741 PO
--- NOTE | 2017-01-20 12:47 | DIAGNOSTIC IMAGING REPORT ---
CHEST 2 VIEWS ROUTINE CLINICAL HISTORY: 71 years-old Male presenting with NEOPLASM OF RENAL PELVIS. TECHNIQUE: PA and lateral views of the chest were obtained. COMPARISON: 11/05/2016. FINDINGS: Left subclavian Mediport terminates at the superior cavoatrial junction. Atherosclerosis of the aortic arch. Cardiac silhouette obscured along the right heart border secondary to a new moderate to large right pleural effusion and right basilar opacity. Left lung and pleural space clear. No pneumothorax. Degenerative changes of the thoracic spine. Upper abdomen normal. IMPRESSION: 1. Interval development of a moderate to large right pleural effusion with right basilar consolidation, likely passive atelectasis. Electronically signed by: Ayaz Wallace M.D. 01/20/2017 12:46 PM Dictated Date/Time: 01/20/2017 12:44 PM
== END | disposition home or self-care (01) ==
LOC: C.RAD 12:03
PROVIDERS: ATTEND Internal Medicine Hematology & Oncology
DX: C65.1 Malignant neoplasm of right renal pelvis (principal)